=== PATIENT | female | born 1990 | race Caucasian/White ===

== ENCOUNTER → 2024-05-01 | Outpatient (CLI) | payer SELFPAY ==
[2024-05-01 16:58] LABS: Hematocrit 35.6 % (37-47); Hemoglobin 12.1 g/dL (12.0-15.0); Mean Corpuscular Hgb 29.2 pg (27.0-32.0); Mean Platelet Vol. 10.2 fl (6.2-12.0); Platelet Count 256 K/mm3 (150-450); RBC Distribution Width CV 11.9 % (11.6-14.6); RBC Distribution Width SD 37.7 fl (35.1-43.9); Red Blood Count 4.14 M/mm3 (4.2-5.4); White Blood Count 9.6 K/mm3 (4.4-11.0)
[2024-05-01 17:54] LABS: AST(SGOT) 16 U/L (<=31); Alanine Aminotransfer ALT/SGPT 13 U/L (<=34); Albumin, Serum 4.3 g/dL (3.5-5.0); Alkaline Phosphatase 48 U/L (35-104); Anion Gap 10 (5-15); BUN 13 mg/dL (4-19); Calcium,Total 9.2 mg/dL (7.6-11.0); Carbon Dioxide 25.5 mmol/L (21.0-32.0); Chloride 102 mmol/L (98-108); Cholesterol 185 mg/dL (<=200); EST Glomerular Filtration Rate 116 (>60); Globulin 2.2 g/dL (2.2-4.2); Glucose 96 mg/dL (70-99); High Density Lipoprotein 88 mg/dL; Low Density Lipoprotein Calc. 88 mg/dL; Protein, Total 6.5 g/dL (5.9-8.4); Sodium Level 138 mmol/L (133-145); Total Bilirubin 0.33 mg/dL (0.00-1.30); Triglycerides 47 mg/dL; Very Low Density Lipoprotein 9 mg/dL (5-40); cholesterol:hdl ratio screen 2.11
== END | disposition home or self-care (01) ==
LOC: LAB 16:05
PROVIDERS: PCP Nurse Practitioner Family; Referring Provider Nurse Practitioner Family; Visit Provider Nurse Practitioner Family
DX: Z00.00 Encounter for general adult medical examination without abnormal findings (principal); Z13.1 Encounter for screening for diabetes mellitus; Z13.6 Encounter for screening for cardiovascular disorders
CPT/HCPCS: 36415; 80053; 80061; 85027

== ENCOUNTER → 2024-05-08 | Outpatient (CLI) | payer SELFPAY ==
--- NOTE | 2024-05-08 09:03 | BI_ITS ---
EXAM: DIAG MAMM W/CAD, BILAT; BILAT BRST KAROLYN STAND ALONE; BREAST LIMITED UNILATERAL 05/08/2024 CLINICAL HISTORY: F, Age 33 y/o , L BREAST LUMP; L BREAT LUMP TECHNIQUE: Bilateral Diagnostic digital breast tomosynthesis with 2D and 3D images. Computer aided detection. Also, targeted left breast ultrasound was performed. COMPARISON: Baseline examination, no priors. FINDINGS: TISSUE DENSITY: The breast tissue is extremely dense which lowers the sensitivity of mammography. Bilateral Breast Mammographic Findings: There is a palpable skin marker in the central outer left breast. Underlying the skin marker no suspicious mammographic findings. Otherwise, there are no suspicious masses, grouped calcifications or architectural distortions in either breast. Ultrasound: Targeted left breast ultrasound was performed of the lateral left breast at the area of patient's palpable concern. There are no suspicious sonographic findings in the lateral left breast. There are a few mildly dilated ducts seen in the lateral left breast. BI/Bilat Brst Karolyn Stand Alone IMPRESSION: There are no suspicious mammographic or sonographic findings in the area of pat ient's palpable concern in the left breast. There is no evidence of malignancy in either breast. BIRADS 2 BENIGN FINDING. OVERALL FINAL ASSESSMENT: BIRADS 2 BENIGN FINDING. RECOMMENDATION: Recommendation: Normal interval follow-up. A letter with findings and recommendations will be mailed to the patient. Reading Location: [id number]
--- NOTE | 2024-05-08 09:03 | BI_ITS ---
EXAM: DIAG MAMM W/CAD, BILAT; BILAT BRST KAROLYN STAND ALONE; BREAST LIMITED UNILATERAL 05/08/2024 CLINICAL HISTORY: F, Age 33 y/o , L BREAST LUMP; L BREAT LUMP TECHNIQUE: Bilateral Diagnostic digital breast tomosynthesis with 2D and 3D images. Computer aided detection. Also, targeted left breast ultrasound was performed. COMPARISON: Baseline examination, no priors. FINDINGS: TISSUE DENSITY: The breast tissue is extremely dense which lowers the sensitivity of mammography. Bilateral Breast Mammographic Findings: There is a palpable skin marker in the central outer left breast. Underlying the skin marker no suspicious mammographic findings. Otherwise, there are no suspicious masses, grouped calcifications or architectural distortions in either breast. Ultrasound: Targeted left breast ultrasound was performed of the lateral left breast at the area of patient's palpable concern. There are no suspicious sonographic findings in the lateral left breast. There are a few mildly dilated ducts seen in the lateral left breast. BI/DIAG MAMM W/CAD, BILAT IMPRESSION: There are no suspicious mammographic or sonographic findings in the area of pat ient's palpable concern in the left breast. There is no evidence of malignancy in either breast. BIRADS 2 BENIGN FINDING. OVERALL FINAL ASSESSMENT: BIRADS 2 BENIGN FINDING. RECOMMENDATION: Recommendation: Normal interval follow-up. A letter with findings and recommendations will be mailed to the patient. Reading Location: [id number]
== END | disposition home or self-care (01) ==
PROVIDERS: PCP Nurse Practitioner Family; Referring Provider Nurse Practitioner Family; Visit Provider Nurse Practitioner Family
DX: R92.8 Other abnormal and inconclusive findings on diagnostic imaging of breast (principal)
CPT/HCPCS: 76642; 77062; 77066; G0279

== ENCOUNTER → 2024-09-21 | Outpatient (CLI) | payer SELFPAY ==
--- NOTE | 2024-09-21 08:05 | ECHOD_ITS ---
Reason For Study Reason For Study: CONGENITAL HEART DEFECT- REPAIR Procedure This was a 2D Doppler, Color Flow transthoracic echocardiogram. Myocardial strain analysis was performed in this exam to aid in the assessment of cardiac function. Exam performed in department. Left Ventricle Normal LV size. The left ventricular ejection fraction is 55 %. No regional wall motion abnormalities noted. Right Ventricle Normal RV size. Normal systolic function. Atria Normal left atrium. Normal right atrium. Mitral Valve Normal mitral valve. Mild (1+) eccentric mitral valve insufficiency. Tricuspid Valve Normal tricuspid valve. Mild tricuspid valve insufficiency. Pulmonary artery systolic pressure is 22 mmHg. Aortic Valve Trisinus/trileaflet aortic valve. Pulmonic Valve Normal pulmonic valve. Mild (1+) pulmonic valve insufficiency. Great Vessels Normal aortic root. Moderate pulmonary artery dilation. Inferior vena cava collapse with sniff. Pericardium/Pleural No pericardial effusion. MMode/2D Measurements & Calculations LVIDd: 4.4 cm IVSd: 0.74 cm LVOT diam: 1.9 cm LVIDs: 3.2 cm LVPWd: 0.71 cm LVOT area: 2.7 cm2 RVDd: 3.4 cm FS: 27.6 % asc Aorta Diam: 2.4 cm LAV(MOD-bp): 26.3 ml LVAd ap4: 22.8 cm2 LAV(MOD-bp) Indexed: 16.3 ml/m2 LVLd ap4: 6.7 cm LAV(MOD-sp2): 26.3 ml EDV(MOD-sp4): 66.1 ml LAV(MOD-sp4): 25.9 ml EDV(sp4-el): 66.3 ml LVAs ap4: 14.1 cm2 LVLs ap4: 5.8 cm ESV(MOD-sp4): 30.0 ml ESV(sp4-el): 29.0 ml EF(MOD-sp4): 54.6 % EF(sp4-el): 56.2 % LVAd ap2: 21.7 cm2 SV(MOD-sp4): 36.1 ml SV(MOD-sp2): 33.4 ml LVLd ap2: 7.1 cm SI(MOD-sp4): 22.5 ml/m2 SI(MOD-sp2): 20.8 ml/m2 EDV(MOD-sp2): 56.9 ml EDV(sp2-el): 56.0 ml LVAs ap2: 12.3 cm2 LVLs ap2: 5.6 cm ESV(MOD-sp2): 23.4 ml ESV(sp2-el): 22.9 ml EF(MOD-sp2): 58.8 % SV(sp4-el): 37.3 ml Ao sinus diam: 2.[address] Junction: 2.2 cm LA dimension(2D): 3.1 cm LA A4 area: 12.2 cm2 RA A4 area: 11.2 cm2 TAPSE: 1.9 cm Time Measurements MV dec time: 0.13 sec Doppler Measurements & Calculations MV E max levon: 104.1 cm/sec Lat Peak E' Levon: 17.0 cm/sec Med Peak E' Levon: 14.4 cm/sec MV A max levon: 39.2 cm/sec E/E' lat: 6.1 E/E' med: 7.2 MV E/A: 2.7 MV dec slope: 774.3 cm/sec2 Ao V2 max: 151.5 cm/sec LV V1 max: 125.5 cm/sec Ao max P.2 mmHg LV V1 max P.3 mmHg Ao V2 mean: 109.9 cm/sec LV V1 mean P.7 mmHg Ao mean P.2 mmHg LV V1 mean: 91.0 cm/sec Ao V2 VTI: 32.9 cm LV V1 VTI: 27.3 cm AV (velocity ratio): 0.83 RICARDO(I,D): 2.3 cm2 RICARDO(V,D): 2.3 cm2 SV(LVOT): 74.8 ml PA V2 max: 97.7 cm/sec TR max levon: 218.3 cm/sec TR max P.1 mmHg ECHO/Echo Complete Interpretation Summary Normal LV size. The left ventricular ejection fraction is 55 %. No regional wall motion abnormalities noted. The global longitudinal strain is normal. The global longitudinal strain = -20. 6 % (normal). Structurally normal valves. Ordering Physician: Emelina Dowling Referring Physician: Emelina Dowling M.D. Performed By: Birgit Wayne RDCS
== END | disposition home or self-care (01) ==
LOC: CVS 08:04
PROVIDERS: PCP Nurse Practitioner Family; Referring Provider Obstetrics & Gynecology Gynecology; Visit Provider Obstetrics & Gynecology Gynecology
DX: I07.1 Rheumatic tricuspid insufficiency (principal); N97.9 Female infertility, unspecified; Z87.74 Personal history of (corrected) congenital malformations of heart and circulatory system
CPT/HCPCS: 93306

== ENCOUNTER → 2024-11-05 | Outpatient (CLI) | payer SELFPAY ==
--- OUTSIDE RECORDS SUMMARY | 2024-11-05 16:26 | XMS RPT_ITS | CCD ---
Author Organization [facility] Inform ion Partnership [facility] Care Team Providers Care Recovery Unit Operator Name Role Phone Lab Institutional, [facility] Attending Unavailable Lab Institutional, [facility] Referring Unavailable Godfrey WE[employer] HAT BLOCKER-C, Carlton Peña Primary Care Provi delta Godfrey [employer] BLOCKER-C, Carlton Peña Attending Provider Comanche [employer]T HAT BLOCKER-C, Carlton Peña Referring Provider [employer]Y [employer] WORK[employer] - [employer]ESSING LABOURER, CARLTON Quevedo Primary Care Phys ician RONALD FONTENOT, EMELINA Attending Unavailable [employer] WORKER - [employer] PROCESSING LABOURER, CARLTON Quevedo Primary Care U re CARDENAS MD, EMELINA Attending Unavailable GODF[employer]Y [employer] B[employer]KE WORKER - [employer] PROCESSING LABOURER, CARLTON Quevedo Primary Care U navailable GODF[employer]Y [employer] BRAKE WORKER - [employer] PROCESSING LABOURER, CARLTON Quevedo Primary Care U re CARDENAS MD, EMELINA Attending Unavailable RONALD FONTENOT, EMELINA Attending Unavailable GOD[employer] BRAKE WORKER - [employer] PROCESSING LABOURER, CARLTON Quevedo Primary Care U navailable GODF[employer]Y [employer] BRAKE WORKER - [employer] PROCESSING LABOURER, CARLTON Quevedo Primary Care U re CARDENAS MD, EMELINA Attending Unavailable Godfrey WE[employer]T H[employer] BLOCKER-C, Carlton Peña Primary Care Provi delta Ronald FONTENOT, Dr. Tarango Attending Provider Ronald FONTENOT, Dr. Tarango Referring Provider [phone] Zaki FONTENOT, Dr. Costa Attending Provider Comanche [employer]T H[employer] BLOCKER, Carlton Peña Primary Care Unav ailable Godfrey [employer]T HAT BLOCKER, Carlton Peña Attending Unav ailable Godfrey WE[employer] F[employer]T HAT BLOCKER, Carlton Peña Referring Unav ailable Comanche WESTERN FELT HAT BLOCKER, Carlton Peña Attending Unav ailable Comanche WE[employer]T HAT BLOCKER, Carlton Peña Referring Unav ailable Comanche WESTERN FELT HAT BLOCKER, Carlton Peña Primary Care Unav ailable Comanche WESTERN FELT HAT BLOCKER, Carlton Peña Attending Unav ailable Comanche WESTERN FELT HAT BLOCKER, Carlton Peña Referring Unav ailable Comanche WEST[employer] FELT HAT BLOCKER, Carlton Peña Primary Care Unav ailable Ronald, Emelina Referring Unavailable Godfrey WEST[employer] FELT HAT BLOCKER, Carlton Peña Primary Care Unav ailable Ronald, Emelina Attending Unavailable Comanche WEST[employer] FELT HAT BLOCKER, Carlton Peña Attending Unav ailable Godfrey WEST[employer] FELT HAT BLOCKER, Carlton Peña Referring Unav ailable Comanche WESTERN FELT HAT BLOCKER, Carlton Peña Primary Care Unav ailable Zaki, Igor Attending Unavailable Comanche WE[employer] F[employer]T HAT BLOCKER, Carlton Peña Primary Care Unav ailable Linda, Eliana Attending Unavailable Godfrey WEST[employer] FELT HAT BLOCKER, Carlton Peña Primary Care Unav ailable Godfrey WEST[employer] FELT HAT BLOCKER, Carlton Peña Attending Unav ailable Godfrey WEST[employer] FELT HAT BLOCKER, Carlton Peña Referring Unav ailable Comanche WEST[employer] FELT HAT BLOCKER, Carlton Peña Primary Care Unav ailable Medications Current Medications Medication Drug Class(es) Dates Sig (Normalized) Sig (Original) acetaminophen 325 mg / HYDROcodone bitartrate 5 mg oral tablet (3 sources) Opioid Agonist Start: 11-08-2015 Hydrocodone-Acetam inophen 1 TABLET tablet Active 1 {tbl} PO EVERY 6 HOURS NEEDED as needed for Pain 20 0 November 08, 2015 12:00am Ascorbic Acid (2 sources) Vitamin C Start: 10-21-2023 Vitamin C qDay, 0 Refill(s) Start Date: 10/21/23 Status: Ordered Repeat number: 1 baclofen 10 mg oral tablet (3 sources) gamma-Aminobutyr ic Acid-ergic Agonist Start: 11-08-2015 take 1 tablet by mouth three times daily as needed for headache Baclofen 10 MG tablet Active 10 mg PO 3 TIMES DAILY NEEDED as needed for Headache November 08, 2015 12:00am letrozole 2.5 mg oral tablet (2 sources) Aromatase Inhibitor Start: 08-11-2024 End: 08-16-2024 letrozole 2.5 mg oral tablet Dose : 2.5 mg = 1 tab(s), Oral, Daily, # 5 tab(s), 0 Refill(s), Pharmacy: [facility], Infertility management, 157, cm, 07/29/24 10:52:00 EDT, Height, kg, 07/29/24 10:52:00 EDT, Dosing Weight Start Date: 08/11/24 Stop Date: 08/16/24 Status: Ordered Quantity: 5.0 Unit: tab(s) Repeat number: 1 Indications: Encounter for procreative management, unspecified; loratadine 10 mg oral tablet (8 sources) Start: 11-08-2015 take 1 tablet by mouth once daily Loratadine (Claritin) 10 MG tablet Active 10 mg PO DAILY November 08, 2015 12:00am Prenate Elite oral tablet (5 sources) Start: 07-01-2024 take 1 tablet by mouth once daily Prenate Elite oral tablet Dose = 1 tab(s), Oral, Daily, # 90 tab(s), 3 Refill(s), Pharmacy: [facility], Infertility management Screening for malignant neoplasm of cervix, 157, cm, 07/01/24 10:10:00 EDT, Height, kg, 07/01/24 10:10:00 EDT, Dosing Weight Start Date: 07/01/24 Status: Ordered Quantity: 90.0 Unit: tab(s) Repeat number: 4 Indications: Encounter for procreative management, unspecified; Encounter for screening for malignant neoplasm of cervix; Start: 07-01-2024 take 1 tablet by rochelle th once daily Prenate Elite oral tablet Dose = 1 tab(s), Oral, Daily, # 90 tab(s), 3 Refill(s), Pharmacy: [facility], Infertility management Screening for malignant neoplasm of cervix, 157, cm, 07/01/24 10:10:00 EDT, Height, kg, 07/01/24 10:10:00 EDT, Dosing Weight Start Date: 07/01/24 Status: Ordered Quantity: 90.0 Unit: tab(s) Repeat number: 4 Indications: Encounter for screening for malignant neoplasm of cervix; Encounter for procreative management, unspecified; Problems Active Problems Problem Classification Problem Date Documented Da te Episodic/Chronic Cardiac and circulatory congenital anomalies (5 sources) 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 congenital anomalies (3 sources) H/O: cardiac anomaly 07-29-2024 Episodic Contraceptive and procreative management (3 sources) Patient encounter status; Translations: [Encounter for procreative management, unspecified] Onset: 07-01-2024 Episodic Female infertility (1 source) Female infertility, unspecified; Translations: [Female infertility, unspecified] Onset: 09-25-2024 Chronic Other upper respiratory disease (5 sources) Seasonal allergy 10-21-2023 Chronic Other upper respiratory infections (5 sources) Acute bacterial sinusitis 04-21-2024 Episodic Unclassified (15 sources) Patient encounter status 10-21-2023 Past or Other Problems Problem Classification Problem Date Documented Da te Episodic/Chronic Nonmalignant breast conditions (6 sources) Breast lump; Translations: [Unspecified lump in unspecified breast] Onset: 05-05-2024 04-21-2024 Episodic Other screening for suspected conditions (not mental disorders or infectious disease) (5 sources) Encounter for screening for malignant neoplasm of cervix; Translations: [Other abnormal and inconclusive findings on diagnostic imaging of breast] Onset: 05-04-2024 Episodic Results Test Name Value Interpretation Reference Range Facility Echo Complete 09-21-2024 Echo Complete [facility] [address] [place] [address] Echo Complete 09/21/24 0808 MR#: [id number] Acct: [id number] Name: ASAEL LEÓN Rep #: [id number] : 1990 34 From: Igor Haines MD Attending Dr: Dr. Emelina Cardenas MD Status: REG [facility] Ordering Dr: Emelina Cardenas MD Date: 09/21/24 Location: [facility] Sex: F C Admitted: Reason For Study Reason For Study: CONGENITAL HEART DEFECT- REPAIR Procedure This was a 2D Doppler, Color Flow transthoracic echocardiogram. Myocardial strain analysis was performed in this exam to aid in the assessment of cardiac function. Exam performed in department. Left Ventricle Normal LV size. The left ventricular ejection fraction is 55 %. No regional wall motion abnormalities noted. Right Ventricle Normal RV size. Normal systolic function. Atria Normal left atrium. Normal right atrium. Mitral Valve Normal mitral valve. Mild (1+) eccentric mitral valve insufficiency. Tricuspid Valve Normal tricuspid valve. Mild tricuspid valve insufficiency. Pulmonary artery systolic pressure is 22 mmHg. Aortic Valve Trisinus/trileaflet aortic valve. Pulmonic Valve Normal pulmonic valve. Mild (1+) pulmonic valve insufficiency. Great Vessels Normal aortic root. Moderate pulmonary artery dilation. Inferior vena cava collapse with sniff. Pericardium/Pleural No pericardial effusion. MMode/2D Measurements Calculations LVIDd: 4.4 cm IVSd: 0.74 cm LVOT diam: 1.9 cm LVIDs: 3.2 cm LVPWd: 0.71 cm LVOT area: 2.7 cm2 RVDd: 3.4 cm FS: 27.6 % asc Aorta Diam: 2.4 cm LAV(MOD-bp): 26.3 ml LVAd ap4: 22.8 cm2 LAV(MOD-bp) Indexed: 16.3 ml/m2 LVLd ap4: 6.7 cm LAV(MOD-sp2): 26.3 ml EDV(MOD-sp4): 66.1 ml LAV(MOD-sp4): 25.9 ml EDV(sp4-el): 66.3 ml LVAs ap4: 14.1 cm2 LVLs ap4: 5.8 cm ESV(MOD-sp4): 30.0 ml ESV(sp4-el): 29.0 ml EF(MOD-sp4): 54.6 % EF(sp4-el): 56.2 % LVAd ap2: 21.7 cm2 SV(MOD-sp4): 36.1 ml SV(MOD-sp2): 33.4 ml LVLd ap2: 7.1 cm SI(MOD-sp4): 22.5 ml/m2 SI(MOD-sp2): 20.8 ml/m2 EDV(MOD-sp2): 56.9 ml EDV(sp2-el): 56.0 ml LVAs ap2: 12.3 cm2 LVLs ap2: 5.6 cm ESV(MOD-sp2): 23.4 ml ESV(sp2-el): 22.9 ml EF(MOD-sp2): 58.8 % SV(sp4-el): 37.3 ml Ao sinus diam: 2.[address] Junction: 2.2 cm LA dimension(2D): 3.1 cm LA A4 area: 12.2 cm2 RA A4 area: 11.2 cm2 TAPSE: 1.9 cm Time Measurements MV dec time: 0.13 sec Doppler Measurements Calculations MV E max levon: 104.1 cm/sec Lat Peak E' Levon: 17.0 cm/sec Med Peak E' Levon: 14.4 cm/sec MV A max levon: 39.2 cm/sec E/E' lat: 6.1 E/E' med: 7.2 MV E/A: 2.7 MV dec slope: 774.3 cm/sec2 Ao V2 max: 151.5 cm/sec LV V1 max: 125.5 cm/sec Ao max P.2 mmHg LV V1 max P.3 mmHg Ao V2 mean: 109.9 cm/sec LV V1 mean P.7 mmHg Ao mean P.2 mmHg LV V1 mean: 91.0 cm/sec Ao V2 VTI: 32.9 cm LV V1 VTI: 27.3 cm AV (velocity ratio): 0.83 RICARDO(I,D): 2.3 cm2 RICARDO(V,D): 2.3 cm2 SV(LVOT): 74.8 ml PA V2 max: 97.7 cm/sec TR max levon: 218.3 cm/sec TR max P.1 mmHg ECHO/Echo Complete Interpretation Summary Normal LV size. The left ventricular ejection fraction is 55 %. No regional wall motion abnormalities noted. The global longitudinal strain is normal. The global longitudinal strain = -20.6 % (normal). Structurally normal valves. Ordering Physician: Emelina Cardenas Referring Physician: Emelina Cardenas M.D. Performed By: Birgit Wayne, JUD 09/21/24 1348 Date Igor Haines MD CC: WESTERN FELT HAT BLOCKERJovanyC Carlton Donahue; Dr. Emelina Cardenas MD Date Dictated: 09/21/24807 Date Transcribed: 09/21/241347 Incident Handler: Signed Normal [facility] Echocardiogram study reportO rdered By: Igor Haines on 09-21-2024 Study report [facility] [address] [place] [place] [address] Echo Complete 09/21/24807 MR#: [id number] Acct: [id number] Name: ASAEL LEÓN Rep #:[id number] : 1990 34 From: Iogr Quevedo Attending Dr: Dr. Emelina Cardenas MD Status: REG I Ordering Dr: Emelina Cardenas MD Date: Location: [facility] Sex: F C Admitted: Reason For Study Reason For Study: CONGENITAL HEART DEFECT- REPAIR Procedure This was a 2D Doppler, Color Flow transthoracic echocardiogram. Myocardial strain analysis was performed in this exam to aid in the assessment of cardiac function. Exam performed in department. Left Ventricle Normal LV size. The left ventricular ejection fraction is 55 %. No regional wallmotion abnormalities noted. Right Ventricle Normal RV size. Normal systolic function. Atria Normal left atrium. Normal right atrium. Mitral Valve Normal mitral valve. Mild (1+) eccentric mitral valve insufficiency. Tricuspid Valve Normal tricuspid valve. Mild tricuspid valve insufficiency. Pulmonary artery systolic pressure is 22 mmHg. Aortic Valve Trisinus/trileaflet aortic valve. Pulmonic Valve Normal pulmonic valve. Mild (1+) pulmonic valve insufficiency. Great Vessels Normal aortic root. Moderate pulmonary artery dilation. Inferior vena cava collapse with sniff. Pericardium/Pleural No pericardial effusion. MMode/2D Measurements & Calculations LVIDd: 4.4 cm IVSd: 0.74 cm LVOT diam: 1.9 cm LVIDs: 3.2 cm LVPWd: 0.71 cm LVOT area: 2.7 cm2 RVDd: 3.4 cm FS: 27.6 % asc Aorta Diam: 2.4 cm LAV(MOD-bp): 26.3 ml LVAd ap4: 22.8 cm2 LAV(MOD-bp) Indexed: 16.3 ml/m2 LVLd ap4: 6.7 cm LAV(MOD-sp2): 26.3 ml EDV(MOD-sp4): 66.1 ml LAV(MOD-sp4): 25.9 ml EDV(sp4-el): 66.3 ml LVAs ap4: 14.1 cm2 LVLs ap4: 5.8 cm ESV(MOD-sp4): 30.0 ml ESV(sp4-el): 29.0 ml EF(MOD-sp4): 54.6 % EF(sp4-el): 56.2 % LVAd ap2: 21.7 cm2 SV(MOD-sp4): 36.1 ml SV(MOD-sp2): 33.4 ml LVLd ap2: 7.1 cm SI(MOD-sp4): 22.5 ml/m2 SI(MOD-sp2): 20.8 ml/m2 EDV(MOD-sp2): 56.9 ml EDV(sp2-el): 56.0 ml LVAs ap2: 12.3 cm2 LVLs ap2: 5.6 cm ESV(MOD-sp2): 23.4 ml ESV(sp2-el): 22.9 ml EF(MOD-sp2): 58.8 % SV(sp4-el): 37.3 ml Ao sinus diam: 2.[address] Junction: 2.2 cm LA dimension(2D): 3.1 cm LA A4 area: 12.2 cm2 RA A4 area: 11.2 cm2 TAPSE: 1.9 cm Time Measurements MV dec time: 0.13 sec Doppler Measurements & Calculations MV E max levon: 104.1 cm/sec Lat Peak E' Levon: 17.0 cm/sec Med Peak E' Levon: 14.4 cm/sec MV A max levon: 39.2 cm/sec E/E' lat: 6.1 E/E' med: 7.2 MV E/A: 2.7 MV dec slope: 774.3 cm/sec2 Ao V2 max: 151.5 cm/sec LV V1 max: 125.5 cm/sec Ao max P.2 mmHg LV V1 max P.3 mmHg Ao V2 mean: 109.9 cm/sec LV V1 mean P.7 mmHg Ao mean P.2 mmHg LV V1 mean: 91.0 cm/sec Ao V2 VTI: 32.9 cm LV V1 VTI: 27.3 cm AV (velocity ratio): 0.83 RICARDO(I,D): 2.3 cm2 RICARDO(V,D): 2.3 cm2 SV(LVOT): 74.8 ml PA V2 max: 97.7 cm/sec TR max levon: 218.3 cm/sec TR max P.1 mmHg ECHO/Echo Complete Interpretation Summary Normal LV size. The left ventricular ejection fraction is 55 %. No regional wall motion abnormalities noted. The global longitudinal strain is normal. The global longitudinal strain = -20.6% (normal). Structurally normal valves. Ordering Physician: Emelina Cardenas Referring Physician: Emelina Cardenas M.D. Performed By: Birgit Wayne, [facility] 09/21/24 1348 Date _ Igor Haines MD CC: CHICA Donahue; Dr. Emelina Cardenas MD ~ Date Dictated: 09/21/24807 Date Transcribed: 09/21/241347 Incident Handler: Signed [facility] Work Phone: LABORATORYOrdered By: Payton Haider on 08-13-2024 HCG ( test) Ql Negative (08/13/24 11:11 AM) Normal AO Manual Urine SS test (u) int Not detected Invalid Interpretation Code AO Manual Urine SS PREGUon 08-13-2024 HCG ( test) Ql (U) Negative Normal [facility] Comment on above: Performed By: #### A SUZIE PEREIRA #### [address] [address] test (u) int Not detected Invalid Interpretation Code [facility] Comment on above: Performed By: #### A SUZIE PEREIRA #### [address] [address] XR HYSTEROSALPINGOGRAPHYon 0 08-13-2024 XR HYSTEROSALPINGOGRAPHY ORIGINAL EXAMINATION: HYSTEROSALPINGOGRAM08/13/2024 12:15 pm COMPARISON: None available HISTORY: ORDERING SYSTEM PROVIDED HISTORY: Reason for Exam: INFERTILITY FINDINGS: A catheter was placed through the cervical os and contrast material was instilled into the uterus by the road crossing guard. Spot films were obtained by the radiologist. There is normal opacification of the uterine cavity and fallopian tubes. The fallopian tubes are patent with a small amount of intra-peritoneal spill of contrast bilaterally. Total fluoroscopy time: 23 seconds Total dose: 4.7 mGy Images: 17 IMPRESSION: Patent fallopian tubes. Interpreted by: Seun Forte DO Preliminary Report By: Seun Forte DO Electronically signed By Seun Forte DO Dictated Date: 08/13/2024 1:04:03 PM Prelim Date: 08/13/2024 1:12:18 PM Sign Date: 08/13/2024 1:12:18 PM Ordering Provider: EMELINA CARDENAS Interpreted by: Seun Forte DO Preliminary Report By: Seun Forte DO Electronically signed By Seun Forte DO Dictated Date: 08/13/2024 1:04:03 PM Prelim Date: 08/13/2024 1:12:18 PM Sign Date: 08/13/2024 1:12:18 PM Ordering Provider: EMELINA Cole [facility] LABORATORYOrdered By: SYSTEM SYSTEM on 07-31-2024 Progesterone [Mass/Vol] 29.3 ng/mL Invalid Interpretation Code ADM SS Comment on above: Interpretive Data: A dult Female Progesterone Reference Ranges: Follicular phase <0.21 - 1.40 ng/mL Luteal phase 3.34 - 25.56 ng/mL Mid-Luteal phase 4.44 - 28.03 ng/mL Postmenopausal <0.21 - 0.73 ng/ml Female: First trimester 11.22 - 90.00 ng/ml Second trimester 25.55 - 89.40 ng/ml Third trimester 48.40 - 422.50 ng/ml PROGon 07-31-2024 Progesterone Level 29.3 ng/mL [facility] Comment on above: Result Comment: Adul t Female Progesterone Reference Ranges: Follicular phase <0.21 - 1.40 ng/mL Luteal phase 3.34 - 25.56 ng/mL Mid-Luteal phase 4.44 - 28.03 ng/mL Postmenopausal <0.21 - 0.73 ng/ml Female: First trimester 11.22 - 90.00 ng/ml Second trimester 25.55 - 89.40 ng/ml Third trimester 48.40 - 422.50 ng/ml Performed By: #### A SUZIE PEREIRA #### [address] [address] [employer] Cytology Reporton 2024 [employer] Cytology Report . Pathology Reports Accession: Collected Date/Time: Received Date/Time: Pathologist: [id number] 07/01/2024 10:57 EDT 07/01/2024 18:00 EDT [employer] Cytology Report SPECIMEN: Specimen Description: Liquid Prep w/ HPV Specimen: Cervical/Endocervical Screening or Diagnostic: Screening RELEVANT HISTORY: LMP: 06/11/24 SPECIMEN ADEQUACY: SATISFACTORY FOR EVALUATION Endocervical/Transfor mational zone component present INTERPRETATION/RESULT S: NEGATIVE FOR INTRAEPITHELIAL LESION OR MALIGNANCY Inflammation present HIGH RISK HPV TESTING: Event Code Result HPV Interp See Interp HPVN f HPV Interp Comment: Clinical Interpretation: High Risk HPV Typing: NEGATIVE HPV types 16, 18, 31, 33, 35, 39, 45, 51, 52, 56, 58, 59, 66 and 68 DNA were undetectable or below the pre-set threshold. The xin High-Risk HPV DNA Test is not intended for use as a screening device for Pap normal women under age 30 and is not intended to substitute for regular Pap screening. The xin High-Risk HPV DNA Test is designed to augment existing methods for the detection of cervical disease and should be used in conjunction with clinical information derived from other diagnostic and screening tests, physical examinations and full medical history in accordance with appropriate patient management procedures. NOTE: A negative result does not preclude the presence of HPV infection because results depend on adequate specimen collection, absence of inhibitors and sufficient DNA to be detected. As of: 07/09/24 12:15 EDT Pathology Reports Accession: Collected Date/Time: Received Date/Time: Pathologist: [id number] 07/01/2024 10:57 EDT 07/01/2024 18:00 EDT COMMENT: This Pap Test was successfully processed and evaluated with the assistance of the [employer] ThinPrep Test Imaging System. Verified by Pathology report verified by [facility] Screened by: HEMANT Electronically signed by Juhi Abrams Sign-Out Date: 07/09/2024 12:16 Performing Lab: [facility], [address] [place] [address] Pathology Dept Disclaimer The Pap test is a screening test for cervical cancer. As evidenced by published data, it is subject to both inherent false negative and false positive results. Your patient's results should be interpreted in context with pertinent clinical history including gynecological examination. Normal [facility] HPVon 07-07-2024 HPV Interp See Interp HPVN Normal See Interp HPVN [facility] Comment on above: Order Comment: Order placed by AP_HPV_ORDER rule from [id number] Result Comment: Clinical Interpretation: High Risk HPV Typing: NEGATIVE HPV types 16, 18, 31, 33, 35, 39, 45, 51, 52, 56, 58, 59, 66 and 68 DNA were undetectable or below the pre-set threshold. The xin High-Risk HPV DNA Test is not intended for use as a screening device for Pap normal women under age 30 and is not intended to substitute for regular Pap screening. The xin High-Risk HPV DNA Test is designed to augment existing methods for the detection of cervical disease and should be used in conjunction with clinical information derived from other diagnostic and screening tests, physical examinations and full medical history in accordance with appropriate patient management procedures. NOTE: A negative result does not preclude the presence of HPV infection because results depend on adequate specimen collection, absence of inhibitors and sufficient DNA to be detected. Performed By: #### A SUZIE PEREIRA #### [address] [address] HPV Source Cervix Normal [facility] Comment on above: Order Comment: Order placed by AP_HPV_ORDER rule from [id number] Performed By: #### A SUZIE PEREIRA #### [address] [address] BVPCRon 07-03-2024 Bacterial Vaginosis Positive Abnormal Negative [facility] Comment on above: Result Comment: Mole cular methodology performed on the [employer] System. Performed By: #### C VTV, NGPCR1, BVPCR, CTPCR #### [address] [address] CVTVon 07-03-2024 Lisy glabrata Negative Normal Negative [facility] Comment on above: Result Comment: p - Assay processing error. Performed By: #### C VTV, NGPCR1, BVPCR, CTPCR #### [address] [address] Lisy Species Negative Normal Negative [facility] Comment on above: Result Comment: p - Assay processing error. Molecular methodology performed on the [employer]off System. Performed By: #### C VTV, NGPCR1, BVPCR, CTPCR #### [place] [address] Trichomonas vaginalis Negative Normal Negative [facility] Comment on above: Result Comment: p - Assay processing error. Performed By: #### C VTV, NGPCR1, BVPCR, CTPCR #### [place] [address] CTPCRon 07-02-[address] C. trachomatis Interp See CT Interp N Normal See CT Interp N [facility] Comment on above: Result Comment: Clinical Interpretation: C. trachomatis DNA not detected. Specimen is presumptive negative for C. trachomatis. A negative result does not preclude C. trachomatis infection because results depend on adequate specimen collection, absence of inhibitors, and sufficient DNA to be detected. Performed By: #### C VTV, NGPCR1, BVPCR, CTPCR #### [place] [address] C.trachomatis PCR Negative Normal Negative [facility] Comment on above: Result Comment: Mole cular (PCR) assay performed on the [employer] 4800 system. Performed By: #### C VTV, NGPCR1, BVPCR, CTPCR #### [place] [address] Chlam Source Cervix Normal [facility] Comment on above: Performed By: #### C VTV, NGPCR1, BVPCR, CTPCR #### [place] [address] [id number] 07-02-2024 GC PCR Source Cervix Normal [facility] Comment on above: Performed By: #### C VTV, NGPCR1, BVPCR, CTPCR #### [place] [address] N. gonorrhoeae (PCR) Negative Normal Negative [facility] Comment on above: Result Comment: Mole cular (PCR) assay performed on the [employer] 4800 System. Performed By: #### C VTV, NGPCR1, BVPCR, CTPCR #### [facility] [address] [place] [address] N. gonorrhoeae Interp See NG Interp N Normal See NG Interp N [facility] Comment on above: Result Comment: Clinical Interpretation: N. gonorrhoeae DNA not detected. Specimen is presumptive negative for N. gonorrhoeae. A negative result does not preclude Neisseria gonorrhoeae infection because results depend on adequate specimen collection, absence of inhibitors, and sufficient DNA to be detected. Performed By: #### C VTV, NGPCR1, BVPCR, CTPCR #### [facility] [address] [place] [address] RPRon 07-02-2024 Reagin Ab RPR Ql (S) Non-Reactive Normal Non-Orchard ctiv e [facility] Comment on above: Result Comment: The RPR test is a non-treponemal assay useful as an aid in the diagnosis of primary and secondary syphilis. It converts to positive generally within 2 weeks after the appearance of a lesion. This test is also useful for monitoring response to antibiotic therapy. A positive RPR screening test will be followed by the FTA ABS test. False positive RPR tests may occur in 1) patients with underlying autoimmune disorders, 2) elderly patients, 3) , and 4) other conditions with abnormal serum globulins. Performed By: #### A SUZIE PEREIRA #### [address] [address] RUBISon 07-02-[address] Positive Normal Positive [facility] Comment on above: Result Comment: This immune status assay detects IgM and/or IgG antibody to Rubella. Interpret results in conjunction with clinical history. POS: Antibody detected; exposure at undetermined recent or distant time. If clinically indicated, order Rubella IGM to rule out recent infection. NEG: No antibody detected. Performed By: #### A SUZIE PEREIRA #### [facility] [address], [place] [address] .Auto Diffon 07-01-2024 Basophil, Absolute 0.0 10 3/mcL Normal 0.0-0.3 [facility] Comment on above: Performed By: #### T SH, ADIFF, ANEU, FT3, FT4, CBC #### [place] [address] #### HBSAG, RPR, PROG, RUBIS #### [address] [address] Basophils/100 WBC (Bld) 0.5 % Normal 0.0-2.5 [facility] Comment on above: Performed By: #### T SH, ADIFF, ANEU, FT3, FT4, CBC #### [place] [address] #### HBSAG, RPR, PROG, RUBIS #### [address] [address] Eosinophil, Absolute 0.1 10 3/mcL Normal 0.0-0.7 [facility] Comment on above: Performed By: #### T SH, ADIFF, ANEU, FT3, FT4, CBC #### [place] [address] #### HBSAG, RPR, PROG, RUBIS #### [address] [address] Eosinophils/100 WBC (Bld) 1.4 % Normal 0.0-6.0 [facility] Comment on above: Performed By: #### T SH, ADIFF, ANEU, FT3, FT4, CBC #### [place] [address] #### HBSAG, RPR, PROG, RUBIS #### [address] [address] Lymphocyte, Absolute 1.7 10 3/mcL Normal 0.9-4.3 [facility] Comment on above: Performed By: #### T SH, ADIFF, ANEU, FT3, FT4, CBC #### [place] [address] #### HBSAG, RPR, PROG, RUBIS #### [address] [address] Lymphocytes/100 WBC (Bld) 28.9 % Normal 20.0-40.0 [facility] Comment on above: Performed By: #### T SH, ADIFF, ANEU, FT3, FT4, CBC #### [place] [address] #### HBSAG, RPR, PROG, RUBIS #### [address] [address] Monocyte, Absolute 0.4 10 3/mcL Normal 0.1-1.4 [facility] Comment on above: Performed By: #### T SH, ADIFF, ANEU, FT3, FT4, CBC #### [place] [address] #### HBSAG, RPR, PROG, RUBIS #### [address] [address] Monocytes/100 WBC (Bld) 7.0 % Normal 2.0-13.0 [facility] Comment on above: Performed By: #### T SH, ADIFF, ANEU, FT3, FT4, CBC #### [place] [address] #### HBSAG, RPR, PROG, RUBIS #### [address] [address] Neutrophils/100 WBC (Bld) 62.2 % Normal 50.0-75.0 [facility] Comment on above: Performed By: #### T SH, ADIFF, ANEU, FT3, FT4, CBC #### [place] [address] #### HBSAG, RPR, PROG, RUBIS #### [address] [address] .NEUABSon 07-01-2024 Neutrophil, Absolute 3.6 10 3/mcL Normal 2.3-8.1 [facility] Comment on above: Performed By: #### T SH, ADIFF, ANEU, FT3, FT4, CBC #### [place] [address] #### HBSAG, RPR, PROG, RUBIS #### [address] [address] ABO/Rh (Gel)on 07-01-2024 ABO/Rh Interp Positive Invalid Interpretation Code [facility] Comment on above: Performed By: #### A KELLI, ABSGEL #### [place] [address] ABS (Gel)on 07-01-2024 ABSC Interp (Gel) Negative Normal [facility] Comment on above: Performed By: #### A KELLI ABSGEL #### [place] [address] CBCon 07-01-2024 Erythrocyte distribution width (RBC) [Ratio] 12.7 % Normal 11.5-15.5 [facility] Comment on above: Performed By: #### T SH, ADIFF, ANEU, FT3, FT4, CBC #### [place] [address] #### HBSAG, RPR, PROG, RUBIS #### [place] [address] Hematocrit (Bld) [Volume fraction] 37.4 % Normal 34.0-46.0 [facility] Comment on above: Performed By: #### T SH, ADIFF, ANEU, FT3, FT4, CBC #### [place] [address] #### HBSAG, RPR, PROG, RUBIS #### [place] [address] Hgb 12.8 G/dL Normal 12.0-16.0 [facility] Comment on above: Performed By: #### T SH, ADIFF, ANEU, FT3, FT4, CBC #### [place] [address] #### HBSAG, RPR, PROG, RUBIS #### [address] [address] MCH (RBC) [Entitic mass] 29.1 pg Normal 27.0-33.0 [facility] Comment on above: Performed By: #### T SH, ADIFF, ANEU, FT3, FT4, CBC #### [place] [address] #### HBSAG, RPR, PROG, RUBIS #### [address] [address] MCHC 34.3 G/dL Normal 32.0-36.0 [facility] Comment on above: Performed By: #### T SH, ADIFF, ANEU, FT3, FT4, CBC #### [place] [address] #### HBSAG, RPR, PROG, RUBIS #### [place] [address] MCV (RBC) [Entitic vol] 85.0 fL Normal 80.0-99.0 [facility] Comment on above: Performed By: #### T SH, ADIFF, ANEU, FT3, FT4, CBC #### [place] [address] #### HBSAG, RPR, PROG, RUBIS #### [place] [address] Platelet 189 10 3/mcL Normal 150-450 [facility] Comment on above: Performed By: #### T SH, ADIFF, ANEU, FT3, FT4, CBC #### [place] [address] #### HBSAG, RPR, PROG, RUBIS #### [place] [address] Platelet mean volume (Bld) [Entitic vol] 8.6 fL Normal 6.6-10.5 [facility] Comment on above: Performed By: #### T SH, ADIFF, ANEU, FT3, FT4, CBC #### [place] [address] #### HBSAG, RPR, PROG, RUBIS #### [address] [address] RBC 4.40 10 6/mcL Normal 4.10-5.30 [facility] Comment on above: Performed By: #### T SH, ADIFF, ANEU, FT3, FT4, CBC #### [place] [address] #### HBSAG, RPR, PROG, RUBIS #### [address] [address] WBC 5.7 10 3/mcL Normal 4.5-10.8 [facility] Comment on above: Performed By: #### T SH, ADIFF, ANEU, FT3, FT4, CBC #### [place] [address] #### HBSAG, RPR, PROG, RUBIS #### [address] [address] FT3on 07-01-2024 Free T3 [Mass/Vol] 2.52 pg/mL Normal 2.30-4.00 [facility] Comment on above: Performed By: #### A SUZIE PEREIRA #### [place] [address] FT4on 07-01-2024 Free T4 [Mass/Vol] 0.91 ng/dL Normal 0.76-1.46 [facility] Comment on above: Performed By: #### A SUZIE PEREIRA #### [place] [address] HBSAGon 07-01-2024 Hep B Surf Ag Non-Reactive Normal Non-Reactiv e [facility] Comment on above: Performed By: #### A SUZIE PEREIRA #### [place] [address] LABORATORYOrdered By: Bishnu Rosenberg on 07-01-2024 Bacterial Vaginosis Positive 3 *ABN* (07/01/24 4:02 PM) Invalid Interpretation Code Negative AH Auto Viro/Sero SS Comment on above: Interpretive Data: Elieser zapata performed on the [employer] Eaton System. C. trachomatis DNA MELODY+probe Ql (Unsp spec) See CT Interp N 8 (07/01/24 4:02 PM) Normal See CT Interp N AH Auto Viro/Sero SS Comment on above: Result Comment: Clinical Interpretation: C. trachomatis DNA not detected. Specimen is presumptive negative for C. trachomatis. A negative result does not preclude C. trachomatis infection because results depend on adequate specimen collection, absence of inhibitors, and sufficient DNA to be detected. C. trachomatis DNA MELODY+probe Ql (Unsp spec) Negative 7 (07/01/24 4:02 PM) Normal Negative AH Auto Viro/Sero SS Comment on above: Interpretive Data: M olecular (PCR) assay performed on the [employer] 4800 system. Lisy glabrata PCR Negative 4 (07/01/24 4:02 PM) Normal Negative AH Auto Viro/Sero SS Comment on above: Result Comment: p - Assay processing error. Lisy Species Negative 1, 2 (07/01/24 4:02 PM) Normal Negative AH Auto Viro/Sero SS Comment on above: Result Comment: p - Assay processing error. Interpretive Data: M olecular methodology performed on the [employer] Eaton System. N. gonorrhoeae DNA MELODY+probe Ql (Unsp spec) Negative 6 (07/01/24 4:02 PM) Normal Negative AH Auto Viro/Sero SS Comment on above: Interpretive Data: M olecular (PCR) assay performed on the [employer] 4800 System. N. gonorrhoeae DNA MELODY+probe Ql (Unsp spec) See NG Interp N 9 (07/01/24 4:02 PM) Normal See NG Interp N AH Auto Viro/Sero SS Comment on above: Result Comment: Clinical Interpretation: N. gonorrhoeae DNA not detected. Specimen is presumptive negative for N. gonorrhoeae. A negative result does not preclude Neisseria gonorrhoeae infection because results depend on adequate specimen collection, absence of inhibitors, and sufficient DNA to be detected. Trichomonas vaginalis Negative 5 (07/01/24 4:02 PM) Normal Negative AH Auto Viro/Sero SS Comment on above: Result Comment: p - Assay processing error. LABORATORYOrdered By: Hood Weber on 07-01-2024 ABO and Rh group Nom (Bld) Blood group A Rh(D) positive Invalid Interpretation Code AO BB Auto SS Blood group antibody screen Ql Negative ABSC (07/01/24 11:14 AM) Normal AO BB Auto SS LABORATORYOrdered By: SYSTEM SYSTEM on 07-01-2024 Basophils (Bld) [#/Vol] 0.0 103/mcL Normal 0.0 - 0.3 10^3/mcL AO Workflow SS Basophils/100 WBC (Bld) 0.5 % Normal 0.0 - 2.5 % AO Workflow SS Eosinophil, Absolute 0.1 103/mcL Normal 0.0 - 0 .7 10^3/mcL AO Workflow SS Eosinophils/100 WBC (Bld) 1.4 % Normal 0.0 - 6.0 % AO Workflow SS Erythrocyte distribution width (RBC) [Ratio] 12.7 % Normal 11.5 - 15.5 % AO Workflow SS Free T3 [Mass/Vol] 2.52 pg/mL Normal 2.30 - 4. 00 pg/mL AO ADM SS Free T4 [Mass/Vol] 0.91 ng/dL Normal 0.76 - 1. 46 ng/dL AO ADM SS Hematocrit (Bld) [Volume fraction] 37.4 % Normal 34.0 - 46.0 % AO Workflow SS Hemoglobin (Bld) [Mass/Vol] 12.8 G/dL Normal 12.0 - 16.0 G/dL AO Workflow SS Lymphocytes (Bld) [#/Vol] 1.7 103/mcL Normal 0. 9 - 4.3 10^3/mcL AO Workflow SS Lymphocytes/100 WBC (Bld) 28.9 % Normal 20 .0 - 40.0 % AO Workflow SS MCH (RBC) [Entitic mass] 29.1 pg Normal 27. 0 - 33.0 pg AO Workflow SS MCHC 34.3 G/dL Normal 32.0 - 36.0 G/dL AO Workflow SS MCV (RBC) [Entitic vol] 85.0 fL Normal 80.0 - 99.0 fL AO Workflow SS Monocytes (Bld) [#/Vol] 0.4 103/mcL Normal 0.1 - 1.4 10^3/mcL AO Workflow SS Monocytes/100 WBC (Bld) 7.0 % Normal 2.0 - 13.0 % AO Workflow SS Neutrophils (Bld) [#/Vol] 3.6 103/mcL Normal 2. 3 - 8.1 10^3/mcL AO Workflow SS Neutrophils/100 WBC (Bld) 62.2 % Normal 50 .0 - 75.0 % AO Workflow SS Platelet mean volume (Bld) [Entitic vol] 8.6 fL Normal 6.6 - 10.5 fL AO Workflow SS Platelets (Bld) [#/Vol] 189 103/mcL Normal 150 - 450 10^3/mcL AO Workflow SS Progesterone [Mass/Vol] 9.0 ng/mL Invalid Interpretation Code ADM SS Comment on above: Interpretive Data: A dult Female Progesterone Reference Ranges: Follicular phase <0.21 - 1.40 ng/mL Luteal phase 3.34 - 25.56 ng/mL Mid-Luteal phase 4.44 - 28.03 ng/mL Postmenopausal <0.21 - 0.73 ng/ml Female: First trimester 11.22 - 90.00 ng/ml Second trimester 25.55 - 89.40 ng/ml Third trimester 48.40 - 422.50 ng/ml RBC (Bld) [#/Vol] 4.40 106/mcL Normal 4.10 - 5.3 0 10^6/mcL AO Workflow SS TSH Qn 1.94 m[IU]/L Normal 0.36 - 3.74 mcIU/mL AO ADM SS WBC (Bld) [#/Vol] 5.7 103/mcL Normal 4.5 - 10.8 10^3/mcL AO Workflow SS LABORATORYOrdered By: Jose Elias ramires Parviz on 07-01-2024 HBV surface Ag IA Ql Non-Reactive (07/01/24 11:13 AM) Normal Non-Reactiv e [facility] Laboratory - Specimen inform ationOrdered By: Bishnu Rosenberg on 07-01-2024 Specimen source Nom (Unsp spec) Cervix (07/01/24 4:02 PM) Normal Auto Viro/Sero SS PROGon 07-01-2024 Progesterone Level 9.0 ng/mL Normal [facility] Comment on above: Result Comment: Adul t Female Progesterone Reference Ranges: Follicular phase <0.21 - 1.40 ng/mL Luteal phase 3.34 - 25.56 ng/mL Mid-Luteal phase 4.44 - 28.03 ng/mL Postmenopausal <0.21 - 0.73 ng/ml Female: First trimester 11.22 - 90.00 ng/ml Second trimester 25.55 - 89.40 ng/ml Third trimester 48.40 - 422.50 ng/ml Performed By: #### A SUZIE PEREIRA #### [facility] [address], [place] [address] TSHon 07-01-2024 TSH Qn 1.94 m[IU]/L Normal 0.36-3.74 [facility] Comment on above: Performed By: #### A SUZIE PEREIRA #### [facility] [address], [place] [address] Bilat Brst Denzel Stand Aloneo n 05-08-2024 Bilat Brst Denzel Stand Alone [facility] [address] [place] [address] Bilat Brst Denzel Stand Alone MR#: [id number] Acct: [id number] Name: ASAEL LEÓN Rep #: [id number] : 1990 F 33 From: Dee Vázquez MD PCP: CHICA Linn Status: [facility] CLI Study: Bilat Brst Denzel Stand Alone Date of Exam: 04/12 10/05 Exam# [id number] Ordering Dr: Carlton Donahue NP [employer] [facility] EXAM: DIAG MAMM W/CAD, BILAT; BILAT BRST DENZEL STAND ALONE; BREAST LIMITED UNILATERAL 05/08/2024 CLINICAL HISTORY: F, Age 33 y/o , L BREAST LUMP; L BREAT LUMP TECHNIQUE: Bilateral Diagnostic digital breast tomosynthesis with 2D and 3D images. Computer aided detection. Also, targeted left breast ultrasound was performed. COMPARISON: Baseline examination, no priors. FINDINGS: TISSUE DENSITY: The breast tissue is extremely dense which lowers the sensitivity of mammography. Bilateral Breast Mammographic Findings: There is a palpable skin marker in the central outer left breast. Underlying the skin marker no suspicious mammographic findings. Otherwise, there are no suspicious masses, grouped calcifications or architectural distortions in either breast. Ultrasound: Targeted left breast ultrasound was performed of the lateral left breast at the area of patient's palpable concern. There are no suspicious sonographic findings in the lateral left breast. There are a few mildly dilated ducts seen in the lateral left breast. BI/Bilat Brst Denzel Stand Alone IMPRESSION: There are no suspicious mammographic or sonographic findings in the area of patient's palpable concern in the left breast. There is no evidence of malignancy in either breast. BIRADS 2 BENIGN FINDING. OVERALL FINAL ASSESSMENT: BIRADS 2 BENIGN FINDING. RECOMMENDATION: Recommendation: Normal interval follow-up. A letter with findings and recommendations will be mailed to the patient. Reading Location: [id number] CC: CHICA Donahue Incident Handler: Signed Normal [facility] Breast Limited Unilateralon 05-08-2024 Breast Limited Unilateral [facility] [address] [place] [id number] Breast Limited Unilateral MR#: [id number] Acct: [id number] Name: ASAEL LEÓN Rep #: [id number] : 1990 F 33 From: Dee Vázquez MD PCP: CHICA Linn Status: REG CLI Study: Breast Limited Unilateral Date of Exam: Exam# [id number] Ordering Dr: Carlton Donahue NP, NP-C EXAM: DIAG MAMM W/CAD, BILAT; BILAT BRST DENZEL STAND ALONE; BREAST LIMITED UNILATERAL 05/08/2024 CLINICAL HISTORY: F, Age 33 y/o , L BREAST LUMP; L BREAT LUMP TECHNIQUE: Bilateral Diagnostic digital breast tomosynthesis with 2D and 3D images. Computer aided detection. Also, targeted left breast ultrasound was performed. COMPARISON: Baseline examination, no priors. FINDINGS: TISSUE DENSITY: The breast tissue is extremely dense which lowers the sensitivity of mammography. Bilateral Breast Mammographic Findings: There is a palpable skin marker in the central outer left breast. Underlying the skin marker no suspicious mammographic findings. Otherwise, there are no suspicious masses, grouped calcifications or architectural distortions in either breast. Ultrasound: Targeted left breast ultrasound was performed of the lateral left breast at the area of patient's palpable concern. There are no suspicious sonographic findings in the lateral left breast. There are a few mildly dilated ducts seen in the lateral left breast. US/Breast Limited Unilateral IMPRESSION: There are no suspicious mammographic or sonographic findings in the area of patient's palpable concern in the left breast. There is no evidence of malignancy in either breast. BIRADS 2 BENIGN FINDING. OVERALL FINAL ASSESSMENT: BIRADS 2 BENIGN FINDING. RECOMMENDATION: Recommendation: Normal interval follow-up. A letter with findings and recommendations will be mailed to the patient. Reading Location: [id number] CC: [facility] [employer] BLOCKER[employer]inab Donahue Incident Handler: Signed Normal [facility] Breast imaging reportOrdered By: Dee Vázquez on 05-08-2024 Study report [facility] [address] [place] [address] DIAG MAMM W/CAD, BILAT MR#: [id number] Acct: [id number] Name: ASAEL LEÓN Rep #: [id number] : 1990 F 33 From: Gilma Vázquez MD PCP: CHICA Linn Status: REG CLI Study:DIAG MAMM W/CAD, BILAT Date of Exam: 05/08/24 Exam# [id number] Ordering Dr: Carlton Donauhe NP [employer] [facility] EXAM: DIAG MAMM W/CAD, BILAT; BILAT BRST DENZEL STAND ALONE; BREAST LIMITED UNILATERAL 05/08/2024 CLINICAL HISTORY: F, Age 33 y/o , L BREAST LUMP; L BREAT LUMP TECHNIQUE: Bilateral Diagnostic digital breast tomosynthesis with 2D and 3D images. Computer aided detection. Also, targeted left breast ultrasound was performed. COMPARISON: Baseline examination, no priors. FINDINGS: TISSUE DENSITY: The breast tissue is extremely dense which lowers the sensitivity of mammography. Bilateral Breast Mammographic Findings: There is a palpable skin marker in the central outer left breast. Underlying the skin marker no suspicious mammographic findings. Otherwise, there are no suspicious masses, grouped calcifications or architectural distortions in either breast. Ultrasound: Targeted left breast ultrasound was performed of the lateral left breast at the area of patient's palpable concern. There are no suspicious sonographic findings in the lateral left breast. There are a few mildly dilated ducts seen in the lateral left breast. BI/DIAG MAMM W/CAD, BILAT IMPRESSION: There are no suspicious mammographic or sonographic findings in the area of patient's palpable concern in the left breast. There is no evidence of malignancy in either breast. BIRADS 2 BENIGN FINDING. OVERALL FINAL ASSESSMENT: BIRADS 2 BENIGN FINDING. RECOMMENDATION: Recommendation: Normal interval follow-up. A letter with findings and recommendations will be mailed to the patient. Reading Location: [id number] CC: CHICA Donahue ~ Incident Handler: Signed [facility] Study report [facility] [address] [place] [address] Bilat Brst Denzel Stand Alone MR#: [id number] Acct: [id number] Name: ASAEL LEÓN Rep #: [id number] : 1990 F 33 From: Gilma Vázquez MD PCP: CHICA Linn Status: [facility] CLI Study:Bilat Brst Denzel Stand Alone Date of Exa m: 05/08/24 Exam# [id number] Ordering Dr: Carlton Donahue NP, NP-C EXAM: DIAG MAMM W/CAD, BILAT; BILAT BRST DENZEL STAND ALONE; BREAST LIMITED UNILATERAL 05/08/2024 CLINICAL HISTORY: F, Age 33 y/o , L BREAST LUMP; L BREAT LUMP TECHNIQUE: Bilateral Diagnostic digital breast tomosynthesis with 2D and 3D images. Computer aided detection. Also, targeted left breast ultrasound was performed. COMPARISON: Baseline examination, no priors. FINDINGS: TISSUE DENSITY: The breast tissue is extremely dense which lowers the sensitivity of mammography. Bilateral Breast Mammographic Findings: There is a palpable skin marker in the central outer left breast. Underlying the skin marker no suspicious mammographic findings. Otherwise, there are no suspicious masses, grouped calcifications or architectural distortions in either breast. Ultrasound: Targeted left breast ultrasound was performed of the lateral left breast at the area of patient's palpable concern. There are no suspicious sonographic findings in the lateral left breast. There are a few mildly dilated ducts seen in the lateral left breast. BI/Bilat Brst Denzel Stand Alone IMPRESSION: There are no suspicious mammographic or sonographic findings in the area of patient's palpable concern in the left breast. There is no evidence of malignancy in either breast. BIRADS 2 BENIGN FINDING. OVERALL FINAL ASSESSMENT: BIRADS 2 BENIGN FINDING. RECOMMENDATION: Recommendation: Normal interval follow-up. A letter with findings and recommendations will be mailed to the patient. Reading Location: [facility] CC: CHICA Donahue ~ Incident Handler: Signed [facility] DIAG MAMM W/CAD, BILATon DIAG MAMM W/CAD, BILAT [facility] [address] [place], [place] [id number] DIAG MAMM W/CAD, BILAT MR#: [id number] Acct: [id number] Name: ASAEL LEÓN Rep #: [id number] : 1990 F 33 From: Dee Vázquez MD PCP: CHICA Linn Status: REG CLI Study: DIAG MAMM W/CAD, BILAT Date of Exam: 05/08/24 Exam# [id number] Ordering Dr: Carlton Donahue NP, NP-C EXAM: DIAG MAMM W/CAD, BILAT; BILAT BRST DENZEL STAND ALONE; BREAST LIMITED UNILATERAL 05/08/2024 CLINICAL HISTORY: F, Age 33 y/o , L BREAST LUMP; L BREAT LUMP TECHNIQUE: Bilateral Diagnostic digital breast tomosynthesis with 2D and 3D images. Computer aided detection. Also, targeted left breast ultrasound was performed. COMPARISON: Baseline examination, no priors. FINDINGS: TISSUE DENSITY: The breast tissue is extremely dense which lowers the sensitivity of mammography. Bilateral Breast Mammographic Findings: There is a palpable skin marker in the central outer left breast. Underlying the skin marker no suspicious mammographic findings. Otherwise, there are no suspicious masses, grouped calcifications or architectural distortions in either breast. Ultrasound: Targeted left breast ultrasound was performed of the lateral left breast at the area of patient's palpable concern. There are no suspicious sonographic findings in the lateral left breast. There are a few mildly dilated ducts seen in the lateral left breast. BI/DIAG MAMM W/CAD, BILAT IMPRESSION: There are no suspicious mammographic or sonographic findings in the area of patient's palpable concern in the left breast. There is no evidence of malignancy in either breast. BIRADS 2 BENIGN FINDING. OVERALL FINAL ASSESSMENT: BIRADS 2 BENIGN FINDING. RECOMMENDATION: Recommendation: Normal interval follow-up. A letter with findings and recommendations will be mailed to the patient. Reading Location: [facility] CC: CHICA Donahue Incident Handler: Signed Normal [facility] Anion gap in Serum or Plasma Ordered By: Carlton Donahue on 05-01-2024 Anion gap [Moles/Vol] 10 mmol/L 5-15 [facility] BUN/creatinine ratioOrdered By: Carlton Donahue on 05-01-2024 Urea nitrogen/Creatinine [Mass ratio] 19.0 mg/mg 10-20 [facility] Bilirubin, totalOrdered By: Carlton Donahue on 05-01-2024 Bilirubin [Mass/Vol] 0.33 mg/dL 0.00-1.30 [facility] CBC-Complete Blood Cnt No Di ffon 05-01-2024 Erythrocyte distribution width (RBC) [Ratio] 11.9 % Normal 11.6-14.6 [facility] Comment on above: Performed By: #### L 100.0500, L500.4050, L500.4100 #### [facility] [address] [facility] [facility] [place], [address] Hematocrit (Bld) [Volume fraction] 35.6 % Low 37-47 [facility] Comment on above: Performed By: #### L 100.0500, L500.4050, L500.4100 #### [facility] [address] [place], [address] Hemoglobin (Bld) [Mass/Vol] 12.1 g/dL Normal 12.0-15.0 [facility] Comment on above: Performed By: #### L 100.0500, L500.4050, L500.4100 #### [facility] [address], [address] MCH (RBC) [Entitic mass] 29.2 pg Normal 27.0-32.0 [facility] Comment on above: Performed By: #### L 100.0500, L500.4050, L500.4100 #### [facility] [address] [place], [address] MCHC (RBC) [Mass/Vol] 34.0 g/dL Normal 32-36 [facility] Comment on above: Performed By: #### L 100.0500, L500.4050, L500.4100 #### [facility] [address] [place], [address] MCV (RBC) [Entitic vol] 86.0 fL Normal 81-99 [facility] Comment on above: Performed By: #### L 100.0500, L500.4050, L500.4100 #### [facility] [address] [place], [address] Platelet mean volume (Bld) [Entitic vol] 10.2 fL Normal 6.2-12.0 [facility] Comment on above: Performed By: #### L 100.0500, L500.4050, L500.4100 #### [facility] [address] [place], [address] Platelets (Bld) [#/Vol] 256 10*3/uL Normal 150-450 [facility] Comment on above: Performed By: #### L 100.0500, L500.4050, L500.4100 #### [facility] [address] [place], [address] RBC (Bld) [#/Vol] 4.14 10*6/uL Low 4.2-5.4 [facility] Comment on above: Performed By: #### L 100.0500, L500.4050, L500.4100 #### [facility] [address] [place], [address] RDW SD 37.7 fl Normal 35.1-43.9 [facility] Comment on above: Performed By: #### L 100.0500, L500.4050, L500.4100 #### [facility] [address] [place], [address] WBC (Bld) [#/Vol] 9.6 10*3/uL Normal 4.4-11.[address] [facility] Comment on above: Performed By: #### L 100.0500, L500.4050, L500.4100 #### [facility] [address] [place], [address] Calculated very low density lipoprotein (VLDL) cholesterol measurementOrdered By: Carlton Donahue on 05-01-2024 VLDL Cholesterol 9 mg/dL 5-40 [facility] Carbon dioxide, total [Moles /volume] in Central venous bloodOrdered By: Carlton Donahue on 05-01-2024 CO2 [Moles/Vol] 25.5 mmol/L 21.0-32.0 [facility] Chloride assayOrdered By: Yoav Donahue on 05-01-2024 Chloride [Moles/Vol] 102 mmol/L 98-108 [facility] Comprehensive Metabolic Prof ilon 05-01-2024 Albumin [Mass/Vol] 4.3 g/dL Normal 3.5-5.[address] [facility] Comment on above: Performed By: #### L 100.0500, L500.4050, L500.4100 #### [facility] [address] [place], [address] Albumin/Globulin [Mass ratio] 2.0 {ratio} Normal 0.9-2.4 [facility] Comment on above: Performed By: #### L 100.0500, L500.4050, L500.4100 #### [facility] [address] [place], [address] ALK PHOS 48 U/L Normal 35-104 [facility] Comment on above: Performed By: #### L 100.0500, L500.4050, L500.4100 #### [facility] [address] [place], [address] ALT [Catalytic activity/Vol] 13 U/L Normal <=34 [facility] Comment on above: Performed By: #### L 100.0500, L500.4050, L500.4100 #### [facility] [address] [place], [address] AST [Catalytic activity/Vol] 16 U/L Normal <=31 [facility] Comment on above: Performed By: #### L 100.0500, L500.4050, L500.4100 #### [facility] [address] [place], [address] Bilirubin [Mass/Vol] 0.33 mg/dL Normal 0.00-1.30 [facility] Comment on above: Performed By: #### L 100.0500, L500.4050, L500.4100 #### [facility] [address] [place], [address] BUN/CRE 19.0 RATIO Normal 10-20 [facility] Comment on above: Performed By: #### L 100.0500, L500.4050, L500.4100 #### [facility] [address] [place], [address] Calcium [Mass/Vol] 9.2 mg/dL Normal 7.6-11.[address] [facility] Comment on above: Performed By: #### L 100.0500, L500.4050, L500.4100 #### [facility] [address] [place], [address] Chloride [Moles/Vol] 102 mmol/L Normal 98-108 [facility] Comment on above: Performed By: #### L 100.0500, L500.4050, L500.4100 #### [facility] [address] [place], [address] CO2 [Moles/Vol] 25.5 mmol/L Normal 21.0-32.0 [facility] Comment on above: Performed By: #### L 100.0500, L500.4050, L500.4100 #### [facility] [address] [place], [address] Creatinine [Mass/Vol] 0.70 mg/dL Normal 0.70-1.20 [facility] Comment on above: Performed By: #### L 100.0500, L500.4050, L500.4100 #### [facility] [address] [place], [address] GAP 10 Normal 5-15 [facility] Comment on above: Performed By: #### L 100.0500, L500.4050, L500.4100 #### [facility] [address] [place], [address] GFR/1.73 sq M.predicted among non-blacks MDRD (S/P/Bld) [Vol rate/Area] 116 mL/min/{1.73_m2} Normal >60 [facility] Comment on above: Result Comment: mL/m in/1.73m2 CKD-EPI Creatinine Equation (2020) Performed By: #### L 100.0500, L500.4050, L500.4100 #### [facility] [address] [place], [address] Globulin (S) [Mass/Vol] 2.2 g/dL Normal 2.2-4.2 [facility] Comment on above: Performed By: #### L 100.0500, L500.4050, L500.4100 #### [facility] [address] [place], [address] Glucose [Mass/Vol] 96 mg/dL Normal 70-[address] [facility] Comment on above: Performed By: #### L 100.0500, L500.4050, L500.4100 #### [facility] [address] [place], [address] Potassium [Moles/Vol] 4.0 mmol/L Normal 3.3-5.1 [facility] Comment on above: Performed By: #### L 100.0500, L500.4050, L500.4100 #### [facility] [address] [place], [address] Sodium [Moles/Vol] 138 mmol/L Normal 133-[address] [facility] Comment on above: Performed By: #### L 100.0500, L500.4050, L500.4100 #### [facility] [address] [place], [address] T PROT 6.5 g/dL Normal 5.9-8.4 [facility] Comment on above: Performed By: #### L 100.0500, L500.4050, L500.4100 #### [facility] [address] [place], [address] Urea nitrogen [Mass/Vol] 13 mg/dL Normal 4-19 [facility] Comment on above: Performed By: #### L 100.0500, L500.4050, L500.4100 #### [facility] [address] [place], [address] Erythrocyte distribution wid th ratioOrdered By: Carlton Donahue on 05-01-2024 Erythrocyte distribution width (RBC) [Ratio] 11.9 % 11.6-14.6 [facility] Erythrocyte distribution wid th standard deviationOrdered By: Carlton Donahue on 05-01-2024 Erythrocyte distribution width (RBC) [Entitic vol] 37.7 fL 35.1-43.[address] [facility] GFR/1.73 sq M.predicted navneet g non-blacks MDRD (S/P/Bld) [Vol rate/Area]Ordered By: Carlton Donahue on 05-01-2024 Estimated GFR (MDRD) Non-Af Amer 116 >60 [facility] Comment on above: mL/min/1.73m2 CKD-EP I Creatinine Equation (2020) Hematocrit Auto (Bld) [Volum e fraction]Ordered By: Carlton Donahue on 05-01-2024 Hematocrit (Bld) [Volume fraction] 35.6 % Low 37-47 [facility] Hemoglobin measurementOrdere d By: Carlton Donahue on 05-01-2024 Hemoglobin (Bld) [Mass/Vol] 12.1 g/dL 12.0-15.0 [facility] LDL calc ser/plasOrdered By: Carlton Donahue on 05-01-2024 LDL Cholesterol, Calculated 88 mg/dL [facility] Comment on above: Givoyhnxwd=021-611 m g/dL & Higher Gwjm=944 mg/dL or greater Laboratory - Chemistry and C hemistry - challengeOrdered By: Carlton Donahue on 05-01-2024 AST [Catalytic activity/Vol] 16 U/L <32 [facility] Lipid Profileon 05-01-2024 CHOL:HDL 2.11 Normal [facility] Comment on above: Performed By: #### L 100.0500, L500.4050, L500.4100 #### [facility] [address] [place], [place], [address] Cholesterol [Mass/Vol] 185 mg/dL Normal <=200 [facility] Comment on above: Result Comment: Chol esterol level, Desirable <200 mg/dL Borderline high cholesterol 200-239 mg/dL High cholesterol >=240 mg/dL Recommendations of the NCEP Adult Treatment Panel for the following risk-cutoff thresholds for the [place] population. Performed By: #### L 100.0500, L500.4050, L500.4100 #### [facility] [address] [place], [address] Cholesterol in HDL [Mass/Vol] 88 mg/dL Normal [facility] Comment on above: Result Comment: [place]it[place] onal Cholesterol Education Program (NCEP) guidelines: <40 mg/dL: Low HDL-cholesterol (major risk factor for CHD) >= 60 mg/dL: High HDL-cholesterol (negative risk factor for CHD) HDL-cholesterol is affected by a number of factors, e.g. smoking, exercise, hormones, sex and age. Performed By: #### L 100.0500, L500.4050, L500.4100 #### [facility] [address] [place], [address] Cholesterol in LDL [Mass/Vol] 88 mg/dL Normal [facility] Comment on above: Result Comment: Bord iwdnif=557-017 mg/dL Higher Eyrw=530 mg/dL or greater Performed By: #### L 100.0500, L500.4050, L500.4100 #### [facility] [address] [place], [address] Cholesterol in VLDL [Mass/Vol] 9 mg/dL Normal 5-40 [facility] Comment on above: Performed By: #### L 100.0500, L500.4050, L500.4100 #### [facility] [address] [place], [address] Triglyceride [Mass/Vol] 47 mg/dL Normal [facility] Comment on above: Result Comment: The drugs N-Acetylcysteine and Metamizole may falsely depress this assay. Normal range: <150 mg/dL Borderline High: 150-199 mg/dL High: 200-499 mg/dL Very High: >500 mg/dL Performed By: #### L 100.0500, L500.4050, L500.4100 #### [facility] [address] [place], [address] MCV (mean corpuscular volume ) determinationOrdered By: Carlton Donahue on 05-01-2024 MCV (RBC) [Entitic vol] 86.0 fL 81-99 [facility] Mean corpuscular hemoglobin (MCH) determinationOrdered By: Carlton Donahue on 05-01-2024 MCH (RBC) [Entitic mass] 29.2 pg 27.0-32.0 [facility] Mean corpuscular hemoglobin concentration (MCHC) determinationOrdered By: Carlton Donahue on 05-01-2024 MCHC (RBC) [Mass/Vol] 34.0 g/dL 32-36 [facility] Mean platelet volume determi nationOrdered By: Carlton Donahue on 05-01-2024 Platelet mean volume (Bld) [Entitic vol] 10.2 fL 6.2-12.0 [facility] Platelet countOrdered By: Yoav Donahue on 05-01-2024 Platelets (Bld) [#/Vol] 256 10*3/uL 150-450 [facility] Potassium (Unsp spec) [Mass/ Vol]Ordered By: Carlton Donahue on 05-01-2024 Potassium [Moles/Vol] 4.0 mmol/L 3.3-5.1 [facility] RBC Auto (Bld) [#/Vol]Ordere d By: Carlton Donahue on 05-01-2024 RBC (Bld) [#/Vol] 4.14 10*6/uL Low 4.2-5.4 [facility] Screening total cholesterol/ high density lipoprotein (HDL) cholesterol ratioOrdered By: Carlton Donahue on 05-01-2024 Cholesterol.total/Choleste rol in HDL [Mass ratio] 2.11 {ratio} [facility] Serum creatinine measurement (mass/volume)Ordered By: Carlton Donahue on 05-01-2024 Creatinine [Mass/Vol] 0.70 mg/dL 0.70-1.20 [facility] Serum globulin measurementOr dered By: Carlton Donahue on 05-01-2024 Globulin (S) [Mass/Vol] 2.2 g/dL 2.2-4.2 [facility] Serum glucose measurement (m ass/volume)Ordered By: Carlton Donahue on 05-01-2024 Glucose [Mass/Vol] 96 mg/dL 70-[address] [facility] Serum or plasma alanine uribe otransferase (ALT) measurementOrdered By: Carlton Donahue on 05-01-2024 ALT [Catalytic activity/Vol] 13 U/L <35 [facility] Serum or plasma albumin charles urement (mass/volume)Ordered By: Carlton Donahue on 05-01-2024 Albumin [Mass/Vol] 4.3 g/dL 3.5-5.[address] [facility] Serum or plasma albumin/glob ulin mass ratioOrdered By: Carlton Donahue on 05-01-2024 Albumin/Globulin [Mass ratio] 2.0 {ratio} 0.9-2.4 [facility] Serum or plasma alkaline enrique sphatase measurementOrdered By: Carlton Donahue on 05-01-2024 ALP [Catalytic activity/Vol] 48 U/L 35-104 [facility] Serum or plasma calcium charles urement (mass/volume)Ordered By: Carlton Donahue on 05-01-2024 Calcium [Mass/Vol] 9.2 mg/dL 7.6-11.[address] [facility] Serum or plasma cholesterol in HDL measurement (mass/volume)Ordered By: Carlton Donahue on 05-01-2024 Cholesterol in HDL [Mass/Vol] 88 mg/dL >40 [facility] Comment on above: National Cholesterol Education Program (NCEP) guidelines:<40 mg/dL: Low HDL-cholesterol (major risk factor for CHD)>= 60 mg/dL: High HDL-cholesterol (negative risk factor for CHD)HDL-cholesterol is affected by a number of factors, e.g. smoking, exercise, hormones, sex and age. Serum or plasma cholesterol measurement (mass/volume)Ordered By: Carlton Donahue on 05-01-2024 Cholesterol [Mass/Vol] 185 mg/dL <201 [facility] Comment on above: Cholesterol level, D esirable <200 mg/dLBorderline high cholesterol 200-239 mg/dLHigh cholesterol >=240 mg/dLRecommendations of the NCEP Adult Treatment Panel for the following risk-cutoff thresholds for the [place] population. Serum or plasma urea nitroge n measurement (mass/volume)Ordered By: Carlton Donahue on 05-01-2024 Urea nitrogen [Mass/Vol] 13 mg/dL 4-19 [facility] Sodium levelOrdered By: Wilmer Donahue on 05-01-2024 Sodium [Moles/Vol] 138 mmol/L 133-[address] [facility] Total proteinOrdered By: Brad Donahue on 05-01-2024 Protein [Mass/Vol] 6.5 g/dL 5.9-8.[address] [facility] Triglycerides measurementOrd ered By: Carlton Donahue on 05-01-2024 Triglyceride [Mass/Vol] 47 mg/dL <199 [facility] Comment on above: The drugs N-Acetylcy steine and Metamizole may falsely depress this assay. Normal range: <150 mg/dLBorderline High: 150-199 mg/dLHigh: 200-499 mg/dLVery High: >500 mg/dL White blood cell (WBC) count Ordered By: Carlton Donahue on 05-01-2024 WBC (Bld) [#/Vol] 9.6 10*3/uL 4.4-11.[address] [facility] Non-ELYSIA Drug Screenon 08-30 Non-[facility]YS[facility] Drug Screen Collected Normal [facility] Comment on above: Order Comment: [employer] sent to [employer] via fedex Performed By: #### N NID #### [facility] CLIA # [id number] [address] [place] [address] CNOVon 01-28-2017 CNOV Office Visit ([facility]) ----ASAEL MCFADDEN ([id number]) 1990 FDate Time Provider Gawqouceng90/18/17 3:45 PM NATALI GARCIAS) [facility] During your visit today, we recorded the following information about you: Temperature Pulse Respiration Blood pressure 96.9 degrees 66/minute 14/minute 112/64 Weight Last Period 65.8 kg 01/21/17Natali Garcias CNP 01/28/2017 6:57 PM SignedHPI Patient is a reliable 26 year old female here today for a 3 week history ofnasal congestion, cough and sore throat. Patient states cough is worse in themorning and at night. States throat pain is worse in the morning and at night.Denies know fever. Has tried OTC medications with little relief. Nothing makesit better. Feels like it is getting worse. No other concerns at this time.Review of SystemsConstitutional : Positive for chills and malaise/fatigue. Negative for fever.HENT: Positive for congestion, ear pain and sore throat.Respiratory: Positive for cough. Negative for sputum production, shortness ofbreath and wheezing.Cardiovascul ar: Negative.Gastrointest inal: Negative for nausea and vomiting.Musculoskele brandon: Negative for myalgias.Neurological : Positive for headaches (sinus pressure).Endo/Heme/A llergies: Negative for environmental allergies.All other systems reviewed and are negative.No past medical history on file.No past surgical history on file.ALLERGIES Review of patient's allergies indicates no known allergies.MEDICATIONS No prescriptions on file.No family history on file.Social HistorySubstance Use Topics- Smoking status: Never Smoker- Smokeless tobacco: Never Used- Alcohol use Not on fileBP 112/64 Pulse 66 Temp 36.1 ?C (96.9 ?F) (Tympanic) Resp 14 Wt 65.8 kg(145 lb) LMP 01/21/2017 SpO2 98%Physical ExamConstitutional: She is oriented to person, place, and time and well-developed,well-n ourished, and in no distress. Vital signs are normal.Mildly ill.HENT:Head: Normocephalic and atraumatic.Right Ear: Tympanic membrane, external ear and ear canal normal.Left Ear: Tympanic membrane, external ear and ear canal normal.Nose: Mucosal edema and rhinorrhea present. Right sinus exhibits no maxillarysinus tenderness and no frontal sinus tenderness. Left sinus exhibits nomaxillary sinus tenderness and no frontal sinus tenderness.Mouth/Thro at: Uvula is midline, oropharynx is clear and moist and mucousmembranes are normal. No oropharyngeal exudate, posterior oropharyngeal edemaor posterior oropharyngeal erythema.Neck: Neck supple.Cardiovascular : Normal rate, regular rhythm and normal heart sounds.Pulmonary/Ches t: Effort normal and breath sounds normal. She has no wheezes.She has no rales.Bilateral wheezes noted through out. Good air exchange noted at the bases. [id number] % on room airLymphadenopathy: Head (right side): No submental, no submandibular and no tonsillaradenopathy present. Head (left side): No submental, no submandibular and no tonsillaradenopathy present. She has no cervical adenopathy.Submandibu lar fullness.Neurological : She is alert and oriented to person, place, and time.Skin: Skin is warm and dry.Nursing note and vitals reviewed.ASSESSMENT/P BUDDY:1. Sinobronchitis - ICD9: 473.9, 490, ICD10: J32.9, J40- Will begin treatment with as per antibiotic as written, see orders- Steroid burst (see orders)- Inhaler (see orders)- Supportive care with plenty of fluids, rest, and analgesia prn.- Follow up in 3-5 days if symptoms persist or worsen.- AMOXICILLIN 875 MG-POTASSIUM CLAVULANATE 125 MG TABLET- PREDNISONE 20 MG TABLET- ALBUTEROL SULFATE HFA 90 MCG/ACTUATION AEROSOL INHALERPrescription instructions reviewed with patient as applicable. Patient advisedif symptoms do not improve or if symptoms worsen sooner, to contact theirprimary care physician. Potential red flag symptoms discussed with thepatient. Reviewed appropriate action plan to take if red flag symptoms occur.Patient agreeable to treatment plan.Natali Garcias CNPReferring Provider: SELF [[id number]]Allergies As of Date: 01/28/2017(No Known Allergies)Date Reviewed: 01/28/2017Reviewed by: Natali Garcias - Fully AssessedReason for Visit: Sinus Problem [99] Cmt: drainage, wheezing, cough, chest congestion x 3 weeksPrimary Visit Diagnosis:Sinobronchi tis [J32.9, J40]Order(s):amoxicil suzi-clavulanic acid (AUGMENTIN) 875-125 mg per tabletTake 1 tablet by mouth twice daily for 10 days.Disp: 20 tabletRfl: 0 predniSONE (DELTASONE) 20 mg tabletTake 1 tablet by mouth twice daily for 4 days.Disp: 8 tabletRfl: 0 albuterol HFA (PROAIR HFA) 90 mcg/actuation inhalerInhale 2 Puffs as instructed every 4 hours as needed.Disp: 1 InhalerRfl: 0Prescriptions as of 01/28/2017 Sig: AMOXICILLIN 875 MG-POTASSIUM * Take 1 tablet by mouth twice * PREDNISONE 20 MG TABLET Take 1 tablet by mouth twice * ALBUTEROL SULFATE HFA 90 MCG/* Inhale 2 Puffs as instructed *Problem List As Of Date: 01/28/2017(None)Presc riptions ordered this encounter Disp Refills Start End AMOXICILLIN 875 MG-POTASSIUM CLAVULA* 20 t* 0 01/28/2017 02/07/2017 Route: ORAL Sig: Take 1 tablet by mouth twice daily for 10 days. PREDNISONE 20 MG TABLET 8 ta* 0 01/28/2017 02/01/2017 Route: ORAL Sig: Take 1 tablet by mouth twice daily for 4 days. ALBUTEROL SULFATE HFA 90 MCG/ACTUATI* 1 In* 0 01/28/2017 Route: INHALATION Sig: Inhale 2 Puffs as instructed every 4 hours as needed. Status:Closed by NATALI GARCIAS CNP on 01/28/17 [facility] PROGRESSon 01-28-2017 PROGRESS HNO ID: [id number]: Natali (Jacquelyn) Linseyervice: (none)Author Type: Nurse PractitionerType: Progress NotesFiled: 01/28/2017 6:57 PMNote Text:HPI Patient is a reliable 26 year old female here today for a 3 weekhistory of nasal congestion, cough and sore throat. Patient states coughis worse in the morning and at night. States throat pain is worse in themorning and at night. Denies know fever. Has tried OTC medications withlittle relief. Nothing makes it better. Feels like it is getting worse. Noother concerns at this time.Review of SystemsConstitutional : Positive for chills and malaise/fatigue. Negative forfever.HENT: Positive for congestion, ear pain and sore throat.Respiratory: Positive for cough. Negative for sputum production, shortnessof breath and wheezing.Cardiovascul ar: Negative.Gastrointest inal: Negative for nausea and vomiting.Musculoskele brandon: Negative for myalgias.Neurological : Positive for headaches (sinus pressure).Endo/Heme/A llergies: Negative for environmental allergies.All other systems reviewed and are negative.No past medical history on file.No past surgical history on file.ALLERGIES Review of patient's allergies indicates no known allergies.MEDICATIONS No prescriptions on file.No family history on file.Social HistorySubstance Use Topics- Smoking status: Never Smoker- Smokeless tobacco: Never Used- Alcohol use Not on fileBP 112/64 Pulse 66 Temp 36.1 ?C (96.9 ?F) (Tympanic) Resp 14 Wt65.8 kg (145 lb) LMP 01/21/2017 SpO2 98%Physical ExamConstitutional: She is oriented to person, place, and time andwell-developed, well-nourished, and in no distress. Vital signs arenormal.Mildly ill.HENT:Head: Normocephalic and atraumatic.Right Ear: Tympanic membrane, external ear and ear canal normal.Left Ear: Tympanic membrane, external ear and ear canal normal.Nose: Mucosal edema and rhinorrhea present. Right sinus exhibits nomaxillary sinus tenderness and no frontal sinus tenderness. Left sinusexhibits no maxillary sinus tenderness and no frontal sinus tenderness.Mouth/Thro at: Uvula is midline, oropharynx is clear and moist and mucousmembranes are normal. No oropharyngeal exudate, posterior oropharyngealedema or posterior oropharyngeal erythema.Neck: Neck supple.Cardiovascular : Normal rate, regular rhythm and normal heart sounds.Pulmonary/Ches t: Effort normal and breath sounds normal. She has nowheezes. She has no rales.Bilateral wheezes noted through out. Good air exchange noted at the bases.SpO2 98 % on room airLymphadenopathy: Head (right side): No submental, no submandibular and no tonsillaradenopathy present. Head (left side): No submental, no submandibular and no tonsillaradenopathy present. She has no cervical adenopathy.Submandibu lar fullness.Neurological : She is alert and oriented to person, place, and time.Skin: Skin is warm and dry.Nursing note and vitals reviewed.ASSESSMENT/P BUDDY:1. Sinobronchitis - ICD9: 473.9, 490, ICD10: J32.9, J40- Will begin treatment with as per antibiotic as written, see orders- Steroid burst (see orders)- Inhaler (see orders)- Supportive care with plenty of fluids, rest, and analgesia prn.- Follow up in 3-5 days if symptoms persist or worsen.- AMOXICILLIN 875 MG-POTASSIUM CLAVULANATE 125 MG TABLET- PREDNISONE 20 MG TABLET- ALBUTEROL SULFATE HFA 90 MCG/ACTUATION AEROSOL INHALERPrescription instructions reviewed with patient as applicable. Patientadvised if symptoms do not improve or if symptoms worsen sooner, tocontact their primary care physician. Potential red flag symptomsdiscussed with the patient. Reviewed appropriate action plan to take ifred flag symptoms occur. Patient agreeable to treatment plan.Natali Garcias CNP [facility] Encounters Encounter Date Encounter Type Care Provider Facility Start: 10-30-2024 ambulatory Eliana Mckeon Facility :[facility] Start: 09-21-2024 Non-patient / Non-visit Dr. Igor Haines MD -[facility] Start: 09-21-2024 End: 09-21-2024 ambulatory Carlton Donahue [employer] Work Phone: -[facility] Start: 09-21-2024 End: 09-21-[address] Emelina Cardenas MD -[facility] Work Phone: Start: 09-21-2024 End: 09-21-2024 ambulatory Emelina Cardenas Facility:[facility] Start: 08-13-2024 End: 08-13-2024 ambulatory CARLTON DONAHUE [employer] Facility:[facility] Start: 08-13-2024 End: 08-13-2024 Patient encounter procedure EMELINA CARDENAS MD [facility] Start: 07-31-2024 End: 07-31-2024 ambulatory EMELINA CARDENAS MD Facility:[facility] Start: 07-31-2024 End: 07-31-2024 Patient encounter procedure EMELINA CARDENAS MD [facility] Start: 07-01-2024 End: 07-05-2024 ambulatory EMELINA CARDENAS MD Facility:[facility] Start: 07-01-2024 End: 07-05-2024 Outreach Lab EMELINA CARDENAS MD [facility] Start: 07-01-2024 End: 07-01-2024 ambulatory EMELINA CARDENAS MD Facility:[facility] Start: 07-01-2024 End: 07-01-2024 Patient encounter procedure EMELINA CARDENAS MD [facility] Start: 05-08-2024 Encounter for genera l adult medical examination without abnormal findings Carlton Donahue [employer] [facility] Start: 05-08-2024 End: 05-08-2024 ambulatory Carlton Donahue [employer] Work Phone: [facility] Work Phone: Start: 05-08-2024 End: 05-08-2024 Patient encounter procedure Carlton Donahue [employer] -Outpatient Breast Imaging Work Phone: Start: 05-08-2024 End: 05-08-2024 ambulatory Carlton Donahue [employer] Facility:[facility] Start: 05-06-2024 ambulatory Carlton Donahue [employer] Facility:[facility] Start: 05-04-2024 Encounter for genera l adult medical examination without abnormal findings Carlton Donahue [employer] [facility] Start: 05-04-2024 ambulatory Carlton Donahue [employer] Facility:[facility] Start: 05-01-2024 End: 05-01-2024 ambulatory Carlton Donahue [employer] Work Phone: [facility] Work Phone: Start: 05-01-2024 End: 05-01-2024 Patient encounter procedure Carlton Donahue [employer] -Laboratory Work Phone: Start: 05-01-2024 End: 05-01-2024 ambulatory Carlton Donahue [employer] Facility:[facility] Start: 08-30-2021 ambulatory [facility] Start: 01-28-2017 End: 01-28-2017 Ambulatory [facility] Procedures Date Procedure Procedure Detail Performing Clinician Start: 05-08-2024 Bilateral mammography Celso rachel COTO Work Phone: Start: 05-08-2024 Ultrasonography of breast Carlton COTO Work Phone: Start: 02-12-1992 Surgical procedure AMEL GEE CARDENAS MD Comment on above: Heart surgery 3 holes filled in Payers Date Payer Category Payer Unknown [id number] 2024 Self-pay [id number] 2024 Unknown 0 [id number] 1989 Unknown [id number] 2.16. [id number] 1989 Unknown [id number] 2.16. [id number] 1989 Unknown [id number] 2.16. [id number] 1989 Unknown [id number] 2.16.8 [id number] 1989 Unknown [id number] 2.16.8 [id number] Unknown [id number] 2.16.8 [id number] Unknown [id number] 2.16.8 [id number] Unknown [id number] 2.16.8 [id number] Unknown [id number] 2.16.8 [id number] Unknown [id number] 2.16.8 [id number] Unknown [id number] 2.16.8 [id number] Social History Date Type Detail Facility Start: 11-08-2015 End: 04-21-2024 Tobacco smoking status NHIS Never smoked tobacco (finding) [facility] Start: 05-08-2024 End: 05-12-2024 Sex Female (finding) [facility] Start: 1990 Sex Assigned At Female W [facility] Sexual Orientation [facility] Clinical Note 08-13-2024 Note Date & Type Note Facility 08-13-2024 Note Exam Date Time Procedure Performing Provider Status 08/13/24 12:14 PM XR Hysterosalpingography LAKSHMI FORTE DO; Auth (Verified) [id number] ORIGINAL EXAMINATION: HYSTEROSALPINGOGRAM08/13/2024 12:15 pm COMPARISON: None available HISTORY: ORDERING SYSTEM PROVIDED HISTORY: Reason for Exam: INFERTILITY FINDINGS: A catheter was placed through the cervical os and contrast material was instilled into the uterus by the road crossing guard. Spot films were obtained by the radiologist. There is normal opacification of the uterine cavity and fallopian tubes. The fallopian tubes are patent with a small amount of intra-peritoneal spill of contrast bilaterally. Total fluoroscopy time: 23 seconds Total dose: 4.7 mGy Images: 17 IMPRESSION: Patent fallopian tubes. Interpreted by: Seun Forte DO Preliminary Report By: Seun Forte DO Electronically signed By Seun Forte DO Dictated Date: 08/13/2024 1:04:03 PM Prelim Date: 08/13/2024 1:12:18 PM Sign Date: 08/13/2024 1:12:18 PM Ordering Provider: EMELINA CARDENAS Interpreted by: Seun Forte DO Preliminary Report By: Seun Forte DO Electronically signed By Seun Forte DO Dictated Date: 08/13/2024 1:04:03 PM Prelim Date: 08/13/2024 1:12:18 PM Sign Date: 08/13/2024 1:12:18 PM Ordering Provider: EMELINA CARDENAS [facility] Radiology Diagnostic study note 05-08-2024 Note Date & Type Note Facility 05-08-2024 Radiology Diagnostic study note [facility] Imaging Services [address] [place], [place] [address] Breast Limited Unilateral MR#: [id number] Acct: [id number] Name: ASAEL LEÓN Rep #: [id number] 5 : 1990 F 33 From: Gilma Vázquez MD PCP: AVINASH LinnC Status: REG CLI Study:Breast Limited Unilateral Date of Exam: 05/08/24 Exam# [id number] Ordering Dr: Carlton Donahue NP [employer] EXAM: DIAG MAMM W/CAD, BILAT; BILAT BRST DENZEL STAND ALONE; BREAST LIMITED UNILATERAL 05/08/2024 CLINICAL HISTORY: F, Age 33 y/o , L BREAST LUMP; L BREAT LUMP TECHNIQUE: Bilateral Diagnostic digital breast tomosynthesis with 2D and 3D images. Computer aided detection. Also, targeted left breast ultrasound was performed. COMPARISON: Baseline examination, no priors. FINDINGS: TISSUE DENSITY: The breast tissue is extremely dense which lowers the sensitivity of mammography. Bilateral Breast Mammographic Findings: There is a palpable skin marker in the central outer left breast. Underlying the skin marker no suspicious mammographic findings. Otherwise, there are no suspicious masses, grouped calcifications or architectural distortions in either breast. Ultrasound: Targeted left breast ultrasound was performed of the lateral left breast at the area of patient's palpable concern. There are no suspicious sonographic findings in the lateral left breast. There are a few mildly dilated ducts seen in the lateral left breast. US/Breast Limited Unilateral IMPRESSION: There are no suspicious mammographic or sonographic findings in the area of patient's palpable concern in the left breast. There is no evidence of malignancy in either breast. BIRADS 2 BENIGN FINDING. OVERALL FINAL ASSESSMENT: BIRADS 2 BENIGN FINDING. RECOMMENDATION: Recommendation: Normal interval follow-up. A letter with findings and recommendations will be mailed to the patient. Reading Location: [facility] CC: [employer] Carlton Donahue ~ Incident Handler: Signed [facility] Evaluation + Plan note 10-21-2023 Laboratory Note Date & Type Note Facility 10-21-2023 Evaluation + Plan note Future Scheduled TestsComplete Blood Count 10/21/23Lipid Profile 10/21/23Complete Metabolic Panel 10/21/23 [facility] Evaluation + Plan note Laboratory Note Date & Type Note Facility Evaluation + Plan note Future Appointments Appointment Date:07/29/2024 10:45:00 AM Scheduled Provider:EMELINA CARDENAS MD Location:[facility] Appointment Type: OV Diagnostic Tests PendingRapid Plasma Reagin Test 07/01/24Rubella Antibody 07/01/24 Future Scheduled TestsComplete Blood Count 10/21/23Lipid Profile 10/21/23Complete Metabolic Panel 10/21/23 [facility] Evaluation + Plan note Laboratory Note Date & Type Note Facility Evaluation + Plan note Future Appointments Appointment Date:07/29/2024 10:45:00 AM Scheduled Provider:EMELINA CARDENAS MD Location:[facility] Appointment Type: OV Diagnostic Tests PendingHPV Screen, DNA Probe 07/01/24 Future Scheduled TestsComplete Blood Count 10/21/23Lipid Profile 10/21/23Complete Metabolic Panel 10/21/23 [facility] Evaluation note Note Date & Type Note Facility Evaluation note No assessment information availa [facility] Work Phone: Hospital course Narrative Note Date & Type Note Facility Hospital course Narrative No data available for this section [facility] Hospital Discharge instructions Note Date & Type Note Facility Hospital Discharge instructions No data available for this section [facility] Progress note Note Date & Type Note Facility Progress note No data available for this section [facility] Reason for referral (narrative) Note Date & Type Note Facility Reason for referral (narrative) No reason for referral information available [facility] Work Phone: Summary Purpose Family History No Family History Records FoundNo Family History Records Found No data available for this section No data available for this section No data available for this section No data available for this section No data available for this section No Family History Records FoundNo Family History Records Found Advance Directives No Advanced Directives Records FoundNo Advanced Directives Records FoundNo Advanced Directives Records FoundNo Advanced Directives Records Found Chief Complaint and Reason for Visit Chief Complaint Admit Date MULTIPLE LUMPS May 08, 2024 8:5 8am Chief Complaint Admit Date Personal history of (corrected) congenit al malform September 21, 2024 8:03am Additional Source Comments INFORMATION SOURCE (unrecogn ized section and content) DATE CREATED AUTHOR 08/06/2017 [facility] DATE CREATED AUTHOR AUTHOR'S ORGANIZ ATION 09/02/[address] [facility] DATE CREATED AUTHOR AUTHOR'S ORGANIZ ATION 08/16/2024 [facility] DATE CREATED AUTHOR AUTHOR'S ORGANIZ ATION 10/31/2024 [facility] Care Teams (unrecognized sec tion and content) Team Status: Active Member Role Status Dates Carlton Donahue NP, [employer] Primary Care Provider Active Team Status: Inactive Member Role Status Dates Carlton Donahue NP, [employer] Primary Care Provider Active Start: May 01, 2024 End: May 01, 2024 Carlton Donahue NP, [employer] Attending Provider Ac tive Start: May 01, 2024 End: May 01, 2024 Carlton Donahue NP, [employer] Referring Provider Ac tive Start: May 01, 2024 End: May 01, 2024 Team Status: Active Member Role Status Dates Carlton Donahue NP, [employer] Primary Care Provider Active Start: May 08, 2024 Carlton Donahue NP, [employer] Attending Provider Ac tive Start: May 08, 2024 Carlton Donahue NP, [employer] Referring Provider Ac tive Start: May 08, 2024 Team Status: Inactive Member Role Status Dates Carlton Donahue NP, [employer] Primary Care Provider Active Start: May 08, 2024 End: May 08, 2024 Carlton Donahue NP, [employer] Attending Provider Ac tive Start: May 08, 2024 End: May 08, 2024 Carlton Donahue NP, [employer] Referring Provider Ac tive Start: May 08, 2024 End: May 08, 2024 Team Status: Active Member Role/Relationship Status Dates Carlton Donahue [employer], [employer] Primary Care Provider Active Team Status: Inactive Member Role/Relationship Status Dates Carlton Donahue [employer], [employer] Primary Care Provider Active Start: September End: September 21, 2024 Dr. Emelina Cardenas MD Attending Provider Active Start: September 21, 2024 End: September 21, 2024 Dr. Emelina Cardenas MD Referring Provider Active Start: September 21, 2024 End: September 21, 2024 Team Status: Active Member Role/Relationship Status Dates Carlton Donahue [employer], [employer] Primary Care Provider Active Start: September Dr. Igor Haines MD Attending Provider Active S tart: September 21, 2024 Goals (unrecognized section and content) Goals may be documented in a n alternate sectionGoals may be documented in an alternate section No data available for this section No data available for this section No data available for this section No data available for this section No data available for this sectionGoals may be documented in an alternate section FOR RECORDS PERTAINING TO PATIENTS WHO ARE OR HAVE BEEN ENROLLED IN A CHEMICAL DEPENDENCY/SUBSTANCEABUSE PROGRAM, SOME INFORMATION MAY BE OMITTED. This clinical summary was aggregated from multiple sources. Caution should be exercised in using it in the provision of clinical care. This summary normalizes information from multiple sources, and as a consequence, information in this document may materially change the coding, format and clinical context of patient data. In addition, data may be omitted in some cases. CLINICAL DECISIONS SHOULD BE BASED ON THE PRIMARY CLINICAL RECORDS. [employer] provides no warranty or guarantee of the accuracy or completeness of information in this document.
[2024-11-09 20:08] LABS: Chlamydia By Nucleic Acid AMP Negative (Negative); Gonococcus By Nucleic Acid AMP Negative (Negative)
== END | disposition home or self-care (01) ==
LOC: LABSPEC 14:55
PROVIDERS: PCP Nurse Practitioner Family; Referring Provider Advanced Practice Midwife; Visit Provider Advanced Practice Midwife
DX: O09.90 Supervision of high risk pregnancy, unspecified, unspecified trimester (principal); Z3A.00 Weeks of gestation of pregnancy not specified
CPT/HCPCS: 87086; 87088; 87491; 87591

== ENCOUNTER → 2024-12-03 | Outpatient (CLI) | payer SELFPAY ==
[2024-12-03 12:18] LABS: Hematocrit 35.2 % (37-47); Hemoglobin 12.2 g/dL (12.0-15.0); Immature Granulocytes Count 0.030 X10^3/uL (0.0-0.0); Mean Corp Hgb Conc 34.7 g/dL (32-36); Mean Corpuscular Volume 89.6 fL (81-99); Mean Platelet Vol. 10.2 fl (6.2-12.0); NRBC Flagged by Analyzer 0 % (0-5); Platelet Count 213 K/mm3 (150-450); RBC Distribution Width CV 13.2 % (11.6-14.6); RBC Distribution Width SD 43.8 fl (35.1-43.9); Red Blood Count 3.93 M/mm3 (4.2-5.4); White Blood Count 7.8 K/mm3 (4.4-11.0)
[2024-12-03 13:07] LABS: HIV Nonreactive (Nonreactive); Hepatitis B Surface Antigen Nonreactive (Nonreactive); Hepatitis C Antibody Nonreactive (Nonreactive); Syphilis Antibodies Nonreactive (Nonreactive)
== END | disposition home or self-care (01) ==
LOC: BWCLAB 09:44
PROVIDERS: Advanced Practice Midwife; PCP Nurse Practitioner Family; Visit Provider Obstetrics & Gynecology
DX: O09.90 Supervision of high risk pregnancy, unspecified, unspecified trimester (principal); Z3A.00 Weeks of gestation of pregnancy not specified
CPT/HCPCS: 36415; 85025; 86703; 86762; 86780; 86803; 86850; 86900; 86901; 87340

== ENCOUNTER → 2025-01-04 | Outpatient (CLI) | payer SELFPAY ==
--- NOTE | 2025-01-04 08:27 | US_ITS ---
PROCEDURE: OB ANATOMY SCAN 01/04/2025 REASON FOR EXAM: ANATOMY/CERVICAL LENGTH TECHNIQUE: Procedure Code: USOBANATOMY Modality: US Procedure: OB ANATOMY SCAN COMPARISON: None FINDINGS Number: 1 Position: Breech Placental Position: Anterior and not low-lying. Placental Abnormalities: No evidence of previa. DIMENSIONS: Biparietal Diameter: 5.1 cm: 21 weeks and 4 days: 60 percentile/ Head Circumference: 19.3 cm: 21 weeks and 4 days: 52 percentile/ Abdominal Circumference: 17.5 cm: 22 weeks and 3 days: 79 percentile Femur Length: 3.5 cm: 20 weeks and 1 day: 34 percentile/ ESTIMATED WEIGHT: 457 g plus/-69 g ESTIMATED WEIGHT PERCENTILE (24+ weeks): 74 percentile ESTIMATED GESTATIONAL AGE: Baseline: 21 weeks and 2 days By Ultrasound: 21 weeks and 5 days ESTIMATED DATE OF DELIVERY: Baseline: May 15, 2025 By Ultrasound: May 12, 2025 BIOPHYSICAL ASSESSMENT: Amniotic Fluid Volume: 5.2 cm Amniotic Fluid Index: Within normal limits. (8-24 cm normal range) Cardiac Motion: 160 beats per minute (average) Trunk and Limb Motion: Present. MATERNAL ANATOMY: Adnexa: Neither maternal ovary is successfully identified. Cervical Length (if measured): 3.8 cm ANATOMY: Spine: Limited visualization of the spine due to positioning. Cranium: Unremarkable Cerebellum: Unremarkable Cisterna Magna: Unremarkable Cavum Septum Pellucidi: Unremarkable Lateral Ventricles: Unremarkable Choroid Plexus: Unremarkable Midline Falx: Unremarkable Nuchal Fold: Plaque unremarkable Upper Lip: Unremarkable Heart: Unremarkable Ventricular Outflow Tracts: Unremarkable Stomach: Unremarkable Kidneys: Unremarkable Bladder: Unremarkable Umbilical Cord: Unremarkable Extremities: Unremarkable US/OB Anatomy Scan IMPRESSION: Single live intrauterine gestation with a mean gestational age of 21 weeks and 5 days. Limited visualization of the spine due to positioning. Reading Location: [facility]
--- OUTSIDE RECORDS SUMMARY | 2025-01-04 08:57 | XMS RPT_ITS | CCD ---
Author Organization [facility] Inform ion Partnership [facility] Care Team Providers Care Financial Reporting Accountant Name Role Phone Lab Institutional, [facility] Attending Unavailable Lab Institutional, [facility] Referring Unavailable [place] ENVIRONMENTAL WEB CRAWLER-C, Momo Peña Primary Care Provi delta [place] ENVIRONMENTAL WEB CRAWLER-C, Momo Peña Attending Provider [place] ENVIRONMENTAL WEB CRAWLER-C, Momo Peña Referring Provider GODFREY DEICER REPAIRER - CASTING TRUCKER, MOMO Quevedo Primary Care Phys ician RONALD FONTENOT, EMELINA Attending Unavailable GODFREY DEICER REPAIRER - CASTING TRUCKER, MOMO Quevedo Primary Care U re CARDENAS MD, EMELINA Attending Unavailable GODFREY DEICER REPAIRER - CASTING TRUCKER, MOMO Emy Primary Care U navailable GODFREY DEICER REPAIRER - CASTING TRUCKER, MOMO D Primary Care U re CARDENAS MD, EMELINA Attending Unavailable RONALD FONTENOT, EMELINA Attending Unavailable GODFREY DEICER REPAIRER - CASTING TRUCKER, MOMO Emy Primary Care U navailable GODFREY DEICER REPAIRER - CASTING TRUCKER, MOMO Emy Primary Care U re CARDENAS MD, EMELINA Attending Unavailable [place] ENVIRONMENTAL WEB CRAWLER-C, Momo Peña Primary Care Provi delta Dr. Emelina Cardenas MD Attending Provider [phone] Dr. Emelina Cardenas MD Referring Provider Dr. Igor Haines MD Attending Provider [place] ENVIRONMENTAL WEB CRAWLER-C, Momo Peña Primary Care Physi calli Dr. Emelina Cardenas MD Attending Physician Dr. Igor Haines MD Attending Physician Eliana Mckeon RN Attending Physician Unavailab mallika Donahue ENVIRONMENTAL WEB CRAWLER-C, Momo Peña Referring Provider Jennifer Ramirez CNM Attending Physician Jennifer Ramirez CNM Referring Provider [phone] Jennifer Ramirez Attending Unavailable [place], Momo Peña Primary Care Unavail able Godfrey, Momo Peña Referring Unavail able [place], Momo Peña Primary Care Unavail able Jennifer Ramirez Attending Unavailable Jennifer Ramirez Referring Unavailable Godfrey, Momo Peña Primary Care Unavail able Colbye Verena Perdomo Attending Unavailabl e [place], Momo Peña Primary Care Unavail able [place], Momo Peña Attending Unavail able [place], Momo Peña Referring Unavail able [place], Momo Peña Attending Unavail able [place], Momo Peña Primary Care Unavail able [place], Momo Peña Referring Unavail able Verena Rashid Attending Unavailabl e Vande VeldeVerena Referring Unavailabl e [place], Momo Peña Primary Care Unavail able [place], Momo Peña Primary Care Unavail able Verena Rashid Attending Unavailabl e [place], Momo Peña Referring Unavail able Igor Haines Attending Unavailable Godfrey, Momo Peña Primary Care Unavail able Godfrey, Momo Posadanis Primary Care Unavail able Eliana Mckeon Attending Unavailable Godfrey, Momo Peña Primary Care Unavail able [place], Momo Peña Attending Unavail able [place], Momo Peña Referring Unavail able Godfrey, Momo Peña Primary Care Unavail able Godfrey, Momo Peña Attending Unavail able Godfrey, Momo Peña Referring Unavail able Godfrey, Momo Peña Primary Care Unavail able Emelina Cardenas Attending Unavailable RonaldEmelina Referring Unavailable Godfrey, Momo Peña Primary Care Unavail able Godfrey, Momo Peña Attending Unavail able [place], Momo Peña Referring Unavail able Medications Current Medications Medication Drug Class(es) Dates Sig (Normalized) Sig (Original) Ascorbic Acid (2 sources) Vitamin C Start: 10-21-2023 Vitamin C qDay, 0 Refill(s) Start Date: 10/21/23 Status: Ordered Repeat number: 1 letrozole 2.5 mg oral tablet (2 sources) Aromatase Inhibitor Start: 08-11-2024 End: 08-16-2024 letrozole 2.5 mg oral tablet Dose : 2.5 mg = 1 tab(s), Oral, Daily, # 5 tab(s), 0 Refill(s), Pharmacy: [id number], Infertility management, 157, cm, 07/29/24 10:52:00 EDT, Height, kg, 07/29/24 10:52:00 EDT, Dosing Weight Start Date: 08/11/24 Stop Date: 08/16/24 Status: Ordered Quantity: 5.0 Unit: tab(s) Repeat number: 1 Indications: Encounter for procreative management, unspecified; loratadine 10 mg oral tablet (10 sources) Start: 11-08-2015 take 1 tablet by mouth once daily Vit No.[id number] (Classic ) 28 mg iron- 800 mcg tablet (2 sources) Start: 10-30-2024 Prenate Elite oral tablet (5 sources) Start: 07-01-2024 take 1 tablet by mouth once daily Prenate Elite oral tablet Dose = 1 tab(s), Oral, Daily, # 90 tab(s), 3 Refill(s), Pharmacy: [id number], Infertility management Screening for malignant neoplasm [...] Daily, # 90 tab(s), 3 Refill(s), Pharmacy: [id number], Infertility management Screening for malignant neoplasm of cervix, 157, cm, 07/01/24 10:10:00 EDT, Height, kg, 07/01/24 10:10:00 EDT, Dosing Weight Start Date: 07/01/24 Status: Ordered Quantity: 90.0 Unit: tab(s) Repeat number: 4 Indications: Encounter for screening for malignant neoplasm of cervix; Encounter for procreative management, unspecified; vitamin b12 1 mg oral capsule (2 sources) Vitamin B12 Start: 10-30-2024 take 1 capsule by [facility] once daily Completed/Discontinued Medications Medication Drug Class(es) Dates Sig (Normalized) Sig (Original) acetaminophen 325 mg / HYDROcodone bitartrate 5 mg oral tablet (5 sources) Opioid Agonist Start: 11-08-2015 End: 10-30-2024 Hydrocodone-Acetam inophen 1 TABLET tablet Discontinued 1 {tbl} PO EVERY 6 HOURS NEEDED as needed for Pain 20 0 November 08, 2015 12:00am October 30, 2024 8:14am baclofen 10 mg oral tablet (5 sources) gamma-Aminobutyr ic Acid-ergic Agonist Start: 11-08-2015 End: 10-30-2024 take 1 tablet by mouth three times daily as needed for headache Baclofen 10 MG tablet Discontinued 10 mg PO 3 TIMES DAILY NEEDED as needed for Headache November 08, 2015 12:00am October 30, 2024 8:14am Problems Active Problems Problem Classification Problem Date Documented Date Episodic/Chronic Cardiac and circulatory congenital anomalies (10 sources) Arterial malformation; 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] Onset: 12-03-2024 10-21-2023 Chronic Comment on above: 2015 Cardiac and circulatory congenital anomalies (3 sources) H/O: cardiac anomaly 07-29-2024 Episodic Contraceptive and procreative management (3 sources) Patient encounter status; Translations: [Encounter for procreative management, unspecified] Onset: 07-01-2024 Episodic Female infertility (1 source) Female infertility, unspecified; Translations: [Female infertility, unspecified] Onset: 09-25-2024 Chronic Other complications of (4 sources) Elderly primigravida; Translations: [Supervision of elderly primigravida, unspecified trimester] 10-30-2024 Episodic Other complications of (4 sources) High risk ; Translations: [Supervision of high risk , unspecified, unspecified trimester] 10-30-2024 Episodic Comment on above: , LLUVIA 05/15/25, Aj sband: Boy Other complications of (2 sources) Supervision of high risk , unspecified, unspecified trimester; Translations: [Supervision of high risk , unspecified, unspecified trimester] Onset: 12-12-2024 Episodic Other complications of (1 source) Supervision of elderly primigravida, unspecified trimester; Translations: [Supervision of elderly primigravida, unspecified trimester] Onset: 12-03-2024 Episodic Other and delivery including normal (4 sources) ; Translations: [Encounter for supervision of normal , unspecified, unspecified trimester] 11-05-2024 Episodic Comment on above: Discussed genetic/ca rrier testing - undecided Other upper respiratory disease (5 sources) Seasonal allergy 10-21-2023 Chronic Other upper respiratory infections (5 sources) Acute bacterial sinusitis 04-21-2024 Episodic Residual codes; unclassified (1 source) 16 weeks gestation of ; Translations: [16 weeks gestation of ] Onset: 12-03-2024 Episodic Residual codes; unclassified (1 source) 12 weeks gestation of ; Translations: [12 weeks gestation of ] Onset: 11-05-2024 Episodic Unclassified (15 sources) Patient encounter status [...] Test Name Value Interpretation Reference Range Facility CBC W/Diff, Automatedon 10 Absolute Lymph 1.46 X10 3/uL Normal 0.83-4.51 [facility] Comment on above: Performed By: #### L 3890.6301, L100.0100, L509.8002, BTS, L3890.6102, L3890.6006, L509.4006 #### [facility] [address] [place], [place], [id number] Absolute Neut 5.7 X10 3/uL Normal 2.0-7.7 [facility] Comment on above: Performed By: #### L 3890.6301, L100.0100, L509.8002, BTS, L3890.6102, L3890.6006, L509.4006 #### [facility] [address] [place], [address] Basophils/100 WBC (Bld) 0.3 % Normal 0-1 [facility] Comment on above: Performed By: #### L 3890.6301, L100.0100, L509.8002, BTS, L3890.6102, L3890.6006, L509.4006 #### [facility] [address] [place], [address] Eosinophils/100 WBC (Bld) 1.3 % Normal 0-5 [facility] Comment on above: Performed By: #### L 3890.6301, L100.0100, L509.8002, BTS, L3890.6102, L3890.6006, L509.4006 #### [facility] [address] [place], [address] Erythrocyte distribution width (RBC) [Ratio] 13.2 % Normal 11.6-14.6 [facility] Comment on above: Performed By: #### L 3890.6301, L100.0100, L509.8002, BTS, L3890.6102, L3890.6006, L509.4006 #### [facility] [address] [place], [address] Hematocrit (Bld) [Volume fraction] 35.2 % Low 37-47 [facility] Comment on above: Performed By: #### L 3890.6301, L100.0100, L509.8002, BTS, L3890.6102, L3890.6006, L509.4006 #### [facility] [address] [place], [address] Hemoglobin (Bld) [Mass/Vol] 12.2 g/dL Normal 12.0-15.0 [facility] Comment on above: Performed By: #### L 3890.6301, L100.0100, L509.8002, BTS, L3890.6102, L3890.6006, L509.4006 #### [facility] [address] [place], [address] IG% 0.400 Normal 0.0-0.9 [facility] Comment on above: Result Comment: IG% - Immature Granulocytes (promyelocytes, myelocytes and metamyelocytes) > 1% indicates that a LEFT SHIFT is Present. Performed By: #### L 3890.6301, L100.0100, L509.8002, BTS, L3890.6102, L3890.6006, L509.4006 #### [facility] [address] [place], [address] Lymphocytes/100 WBC (Bld) 18.8 % Low 19-41 [facility] Comment on above: Performed By: #### L 3890.6301, L100.0100, L509.8002, BTS, L3890.6102, L3890.6006, L509.4006 #### [facility] [address] [place], [address] MCH (RBC) [Entitic mass] 31.0 pg Normal 27.0-32.0 [facility] Comment on above: Performed By: #### L 3890.6301, L100.0100, L509.8002, BTS, L3890.6102, L3890.6006, L509.4006 #### [facility] [address] [place], [address] MCHC (RBC) [Mass/Vol] 34.7 g/dL Normal 32-36 [facility] Comment on above: Performed By: #### L 3890.6301, L100.0100, L509.8002, BTS, L3890.6102, L3890.6006, L509.4006 #### [facility] [address] [place], [address] MCV (RBC) [Entitic vol] 89.6 fL Normal 81-99 [facility] Comment on above: Performed By: #### L 3890.6301, L100.0100, L509.8002, BTS, L3890.6102, L3890.6006, L509.4006 #### [facility] [address] [place], [address] Monocytes/100 WBC (Bld) 6.2 % Normal 0-10 [facility] Comment on above: Performed By: #### L 3890.6301, L100.0100, L509.8002, BTS, L3890.6102, L3890.6006, L509.4006 #### [facility] [address] [place], [address] Neutrophils/100 WBC (Bld) 73.0 % High 47-70 [facility] Comment on above: Performed By: #### L 3890.6301, L100.0100, L509.8002, BTS, L3890.6102, L3890.6006, L509.4006 #### [facility] [address] [place], [address] Nucleated RBC (Bld) [#/Vol] 0 10*3/uL Normal 0-5 [facility] Comment on above: Performed By: #### L 3890.6301, L100.0100, L509.8002, BTS, L3890.6102, L3890.6006, L509.4006 #### [facility] [address] [place], [address] Platelet mean volume (Bld) [Entitic vol] 10.2 fL Normal 6.2-12.0 [facility] Comment on above: Performed By: #### L 3890.6301, L100.0100, L509.8002, BTS, L3890.6102, L3890.6006, L509.4006 #### [facility] [address] [place], [address] Platelets (Bld) [#/Vol] 213 10*3/uL Normal 150-450 [facility] Comment on above: Performed By: #### L 3890.6301, L100.0100, L509.8002, BTS, L3890.6102, L3890.6006, L509.4006 #### [facility] [address] [place], [address] RBC (Bld) [#/Vol] 3.93 10*6/uL Low 4.2-5.4 [facility] Comment on above: Performed By: #### L 3890.6301, L100.0100, L509.8002, BTS, L3890.6102, L3890.6006, L509.4006 #### [facility] [address] [place], [address] RDW SD 43.8 fl Normal 35.1-43.9 [facility] Comment on above: Performed By: #### L 3890.6301, L100.0100, L509.8002, BTS, L3890.6102, L3890.6006, L509.4006 #### [facility] [address] [place], [address] WBC (Bld) [#/Vol] 7.8 10*3/uL Normal 4.4-11.0 [facility] Comment on above: Performed By: #### L 3890.6301, L100.0100, L509.8002, BTS, L3890.6102, L3890.6006, L509.4006 #### [facility] [address] [place], [address] HIVon 12-03-2024 HIV Non-Reactive Normal Nonreactive [facility] Comment on above: Result Comment: Non- Reactive Reactive Repeatedly reactive samples must be confirmed according to CDC recommended confirmatory algorithms. The subresults for either HIVAG or AHIV can be used as an aid in the selection of the confirmation algorithm for reactive samples. Send out specimens with Reactive results to [facility] for confirmation. Order the HIV antibody detection and differentiation: [id number] Performed By: #### L 3890.6301, L100.0100, L509.8002, BTS, L3890.6102, L3890.6006, L509.4006 ####[facility] [address] [place], [address] Hepatitis C Antibodyon 12-03 Hepatitis C Ab Non-Reactive Normal Nonreactive [facility] Comment on above: Result Comment: Reac tive: Presumptive evidence of antibodies to HCV. Follow CDC recommendations for supplemental testing. Non-Reactive: Antibodies to HCV were not detected; does not exclude the possibility of exposure to HCV Reactive Results are presumptive evidence of antibodies to HCV. Follow CDC recommendations for supplemental testing. Order confirmation testing: HCV Quant by PCR testing - HCVPCR #[id number] Non Reactive: < 0.8 Equivocal: >/= 0.8 to < 1.0 Reactive: >/= 1.0 The CDC requires that a reactive/equivocal HCV antibody result be sent out for confirmation. HCV Quant by PCR testing. Performed By: #### L 3890.6301, L100.0100, L509.8002, BTS, L3890.6102, L3890.6006, L509.4006 ####[facility] [address] [place], [place], [id number] L3890.6102on 12-03-2024 HEP B Surf Ag Non-Reactive Normal Nonreactive [facility] Comment on above: Result Comment: Reac tive: Presumptive evidence of HBV. Repeatedly reactive samples must be confirmed using a neutralization test ([employer] HBsAg Confirmatory Test) Non-Reactive: HBsAg not detected; does not exclude the possibility of exposure to HBV Performed By: #### L 3890.6301, L100.0100, L509.8002, BTS, L3890.6102, L3890.6006, L509.4006 ####[facility] [address] [place], [address] L509.4006on 12-03-2024 Rubella IgG REAC Normal Nonreactive [facility] Comment on above: Result Comment: Anti body Result: Interpretation Non-Reactive: Non-Immune Reactive: Immune The following results were obtained with the [employer] Rubella IgG assay. Results from assays of other manufacturers cannot be used interchangeably. Performed By: #### L 3890.6301, L100.0100, L509.8002, BTS, L3890.6102, L3890.6006, L509.4006 #### [facility] [address] [place], [place], [address] Business Technology Analyst Office Visit Reporton 12-03-2024 Business Technology Analyst Office Visit Report [facility] [address], [address] [place] [address] OFFICE VISIT Date of Service: 12/03/24 MR#: [id number] Acct: [id number] Name: ASAEL LEÓN Rep #: [id number] : 1990 Provider: Dr. Verena Bullock DO Age/Sex: 34/F Location: [facility] Status: Signed Intake Vital Signs 11/05/24 11:47 12/03/24 08:58 12/03/24 09:00 Height 5 ft 1 in 5 ft 1 in 5 ft 1 in Weight: 146 lb 4 oz BMI 27.6 BP 108/69 Intake Visit Reasons: 16wk5d ob Fundraising Director Required: No Is patient in pain?: No Allergies No Known Allergies Allergy (Verified 12/03/24 08:58) Medications ???Medication ???Instructions ???Recorded ???Confirmed ???Type loratadine 10 mg tablet (Allergy 10 mg PO DAILY 11/08/15 12/03/24 H istory Relief (loratadine)) cyanocobalamin (vitamin B-12) 1,000 mcg PO QDAY 10/30/24 5 History 1,000 mcg capsule vits no.126-ferrous fum tab PO 10/30/24 12/03/24 History 28 mg iron-folic acid 800 mcg tablet (Classic ) Last Menstrual Period: 08/08/24 Zika: Zika virus screening: Negative : No PFSH PFSH Medical History Seasonal allergies Surgical History Status post cardiac surgery Family History Aunt Cancer Grandfather Myocardial infarction Heart disease Grandfather Heart disease Brain aneurysm Social History adopted: No household members: spouse current occupational status: unemployed current occupation: [employer] current occupational exposures/hazards: No pets and animals: No history of recent travel: No sexually active: Yes Smoking Status: Never smoker second hand exposure: No alcohol intake: never substance use type: does not use well-balanced diet: daily or most days caffeine: Yes Type: coffee Number of servings: 1 eating out: 1-3 times/week during the past year weight has: remained stable what type of physical activity do you participate in: none brennen/rastafari: Scientology seatbelt use: always do you feel safe at home: Yes additional social history: : Plan B 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 OB Visit LLUVIA Calculator Estimated Delivery Date Method Current WG Current Estimate 05/15/25 LMP (Certain) 16w 5d Expected Delivery Route/Plan Labor Preferences- CB/BF classes: [] labor support person: [] labor intervention preferences: [] pain management options preferred: [] cut cord/dad catch: [] : [] PP control planned: [] discussed possible routes of delivery and associated risks: [] special requests: [] Specific Issue/Plans Covid status: [] Flu vaccine: [] Tdap vaccine: [] Rhogam: [] LARC form signed: [] Problem list reviewed and updated with the most current plan of care details and appropriate orders placed. Relevant counseling for the gestational age provided. Continue routine care and follow up unless otherwise noted in visit notes/problem list details Initial Weight: 143 lb Date -???-???-???-???-???- ???-???-???-???-???-? ??-???- EGA Weight BP Urine Prot -???-???-???-???-???- ???-???-???-???-???-? ??-???- Glucose FHR FuHt Pres Dilation -???-???-???-???-???- ???-???-???-???-???-? ??-???- Effaced St Visit Note 11/05/24 -???-???-???-???-???- ???-???-???-???-???-? ??-???- 12w 5d 143 lb (+0 oz) 117/65 -???-???-???-???-???- ???-???-???-???-???-? ??-???- 164 -???-???-???-???-???- ???-???-???-???-???-? ??-???- KW CRL 6.69 cm cons with LMP. declines NIPT and will get NOB labs next visit 12/03/24 -???-???-???-???-???- ???-???-???-???-???-? ??-???- 16w 5d 146 lb 4 oz (+3 lb 4 oz) 108/69 Negative -???-???-???-???-???- ???-???-???-???-???-? ??-???- Negative 160 -???-???-???-???-???- ???-???-???-???-???-? ??-???- JV- patient is traveling to [facility] for 2 weeks. declines flu shot. rx for promethazine. 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 new ob labs today. ACOG First Trimester First Trimester: Desire for , Alcohol, Tobacco Cessation, Illicit/Recreational Drug/Substance Use, Intimate Partner Violence, Barriers to care, Unstable Housing, Communication Barriers, Environmental/Work Hazards, Anticipated Course of Care, Toxoplasmosis Precat (more content not included)... Normal [facility] Syphilis Antibodieson 2024 Syphilis Abs Non-Reactive Normal Nonreactive [facility] Comment on above: Performed By: #### L 3890.6301, L100.0100, L509.8002, BTS, L3890.6102, L3890.6006, L509.4006 ####[facility] [address] [place], [place], [id number] Type AND Screenon 12-03-2024 Ab SCREEN GEL Negative Normal [facility] Comment on above: Order Comment: PN Performed By: #### L 3890.6301, L100.0100, L509.8002, BTS, L3890.6102, L3890.6006, L509.4006 ####[facility] [address] [place], [place], [id number] ABO and Rh group Nom (Bld) Blood group A Rh(D) positive Normal [facility] Comment on above: Order Comment: PN Performed By: #### L 3890.6301, L100.0100, L509.8002, BTS, L3890.6102, L3890.6006, L509.4006 ####[facility] [address] [place], [address] Chlamydia/GC MELODY aptimaon CHLAMY,NUC ACID Negative Normal Negative [facility] Comment on above: Performed By: #### M 100.2200, L7000.1800 #### [facility] [address] [place], [address] GC BY NUC ACID Negative Normal Negative [facility] Comment on above: Result Comment: Perf ormed at: =G - [facility] [address] [id number] Lime Mixer: Morelia Jimenez MD, Phone: [phone] Performed By: #### M 100.2200, L7000.1800 #### [facility] [address] [place], [address] Urine Cultureon 11-07-2024 URC Mixed Gram Pos Gram Neg Org [place] Count <1000 MIXC Mixed contaminants. Submit a new specimen if indicated. Normal [facility] Comment on above: Performed By: #### M 100.2200, L7000.1800 #### [facility] [address] [place], [address] Chlamydia trachomatis rRNA d etection by probe and target amplification methodOrdered By: Jennifer Ramirez on 11-05-2024 C. trachomatis rRNA MELODY+probe Ql (Unsp spec) Negative Negative [facility] Neisseria gonorrhoeae nuclei c acid detection by amplified probe techniqueOrdered By: Jennifer Ramirez on 11-05-2024 N. gonorrhoeae DNA MELODY+probe Ql (Unsp spec) Negative Negative [facility] Comment on above: Performed at: =G - L [address] [id number] Director: Morelia Jimenez MD, Phone: [phone] Business Technology Analyst Office Visit Reporton 11-05-2024 Business Technology Analyst Office Visit Report [facility], [address] [place] [address] OFFICE VISIT Date of Service: 11/05/24 MR#: [id number] Acct: [id number] Name: ASAEL LEÓN Rep #: [id number] : 1990 Provider: DARIUS Gilliam ams Age/Sex: 34/F Location: [facility] Status: Signed Intake Vital Signs 11/08/15 19:37 11/05/24 11:44 11/05/24 11:47 Height 5 ft 1 in 5 ft 1 in 5 ft 1 in Weight: 143 lb BMI 27.0 BP 117/65 Intake Visit Reasons: *NEW* NOB [facility]I 12w5d, LLUVIA 05/15 Fundraising Director Required: No Is patient in pain?: No Allergies No Known Allergies Allergy (Verified 11/05/24 11:45) Medications ???Medication ???Instructions ???Recorded ???Confirmed ???Type loratadine 10 mg tablet (Allergy 10 mg PO DAILY 11/08/15 11/05/24 H istory Relief (loratadine)) cyanocobalamin (vitamin B-12) 1,000 mcg PO QDAY 10/30/24 5 History 1,000 mcg capsule vits no.126-ferrous fum tab PO 10/30/24 11/05/24 History 28 mg iron-folic acid 800 mcg tablet (Classic ) Last Menstrual Period: 08/08/24 Zika: Zika virus screening: Negative : Yes Have you fallen in the past year?: No PFSH PFSH Medical History (Updated 11/05/24 @ 11:45 by Aylin Rojo RN) Seasonal allergies Surgical History Status post cardiac surgery Family History Aunt Cancer Grandfather Myocardial infarction Heart disease Grandfather Heart disease Brain aneurysm Social History (Updated 10/30/24 @ 08:23 by Eliana Mckeon RN) adopted: No household members: spouse service: No current occupational status: unemployed current occupation: [employer] current occupational exposures/hazards: No pets and animals: No history of recent travel: No sexually active: Yes Smoking Status: Never smoker second hand exposure: No alcohol intake: never substance use type: does not use well-balanced diet: daily or most days caffeine: Yes Type: coffee Number of servings: 1 eating out: 1-3 times/week during the past year weight has: remained stable what type of physical activity do you participate in: none brennen/rastafari: Scientology seatbelt use: always do you feel safe at home: Yes additional social history: : [employer] -> changing to [employer] working History 1 Elective abortions 0 Hx Para 0 Spontaneous abortions 0 Hx # Term Pregnancies Ectopic pregnancies Hx # Pregnancies Multiple births # of living children HPI *NEW* NOB [facility] 12w5d, [facility]UV[facility] 05/15 Details: ASAEL LEÓN is a 34 year old who presents for New OB visit. OB Visit [facility]UV[facility] Calculator Estimated Delivery Date Method Current WG Current Estimate 05/15/25 LMP (Certain) 12w 5d Estimated Due Date: 05/15/25 Expected Delivery Route/Plan Labor Preferences- CB/BF classes: [] labor support person: [] labor intervention preferences: [] pain management options preferred: [] cut cord/dad catch: [] : [] PP control planned: [] discussed possible routes of delivery and associated risks: [] special requests: [] Specific Issue/Plans Covid status: [] Flu vaccine: [] Tdap vaccine: [] Rhogam: [] LARC form signed: [] Problem list reviewed and updated with the most current plan of care details and appropriate orders placed. Relevant counseling for the gestational age provided. Continue routine care and follow up unless otherwise noted in visit notes/problem list details Initial Weight: 143 lb Date -???-???-???-???-???- ???-???-???-???-???-? ??-???- EGA Weight BP Urine Prot -???-???-???-???-???- ???-???-???-???-???-? ??-???- Glucose FHR FuHt Pres Dilation -???-???-???-???-???- ???-???-???-???-???-? ??-???- Effaced St Visit Note 11/05/24 -???-???-???-???-???- ???-???-???-???-???-? ??-???- 12w 5d 143 lb (+0 oz) 117/65 -???-???-???-???-???- ???-???-???-???-???-? ??-???- 164 -???-???-???-???-???- ???-???-???-???-???-? ??-???- KW CRL 6.69 cm cons with LMP. 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 Normal [facility] Urine cultureOrdered By: Eros Ramirez on 11-05-2024 Bacteria identified Cx Nom (U) Mixed Gram Pos & Gram Neg Org Abnormal [facility] Echo Completeon 09-21-2024 Echo Complete [facility] Services [address] [place] [address] Echo Complete 09/21/24 0808 MR#: [id number] Acct: [id number] Name: ASAEL LEÓN Rep #: [id number] : 1990 34 From: Igor Haines MD Attending Dr: Dr. Emelina Cardenas MD Status: REG CLI Ordering Dr: Emelina Cardenas MD Date: 08/11/25 Location: [facility] Sex: F C Admitted: Reason For Study [...] sec Doppler Measurements Calculations MV E max lisa: 104.1 cm/sec Lat Peak E' Lisa: 17.0 cm/sec Med Peak E' Lisa: 14.4 cm/sec MV A max lisa: 39.2 cm/sec E/E' lat: 6.1 E/E' med: [...] PA V2 max: 97.7 cm/sec TR max lisa: 218.3 cm/sec TR max P.1 mmHg ECHO/Echo Complete Interpretation Summary Normal LV size. The left ventricular ejection fraction is 55 %. No regional wall motion abnormalities noted. The global longitudinal strain is normal. The global longitudinal strain = -20.6 % (normal). Structurally normal valves. Ordering Physician: Emelina Cardenas Referring Physician: Emelina Cardenas M.D. Performed By: Birgit Wayne RDCS 09/21/24 1348 Date Igor Haines MD CC: CHICA Donahue; Dr. Emelina Cardenas MD Date Dictated: 09/21/24 0808 Date Transcribed: 09/21/241347 Purifying Plant Operator: Signed Normal [facility] Echocardiogram study reportO rdered By: Igor Haines on 09-21-2024 Study report [facility] Cardiovascular Services [address] [place] [address] Echo Complete 09/21/24807 MR#: [id number] Acct: [id number] Name: ASAEL LEÓN Rep #:[id number] : 1990 34 From: Igor Quevedo Attending Dr: Dr. Emelina Cardenas MD Status: REG CLI Ordering Dr: Emelina Cardenas MD Date: Location: [facility] Sex: F C Admitted: Reason For Study [...] Doppler Measurements & Calculations MV E max lisa: 104.1 cm/sec Lat Peak E' Lisa: 17.0 cm/sec Med Peak E' Lisa: 14.4 cm/sec MV A max lisa: 39.2 cm/sec E/E' lat: 6.1 E/E' med: [...] PA V2 max: 97.7 cm/sec TR max lisa: 218.3 cm/sec TR max P.1 mmHg ECHO/Echo Complete Interpretation Summary Normal LV size. The left ventricular ejection fraction is 55 %. No regional wall motion abnormalities noted. The global longitudinal strain is normal. The global longitudinal strain = -20.6% (normal). Structurally normal valves. Ordering Physician: Emelina Cardenas Referring Physician: Emelina Cardenas M.D. Performed By: Birgit Wayne RDCS 09/21/24 1348 Date _ Igor Haiens MD CC: CHICA Donahue; Dr. Emelina Cardenas MD ~ Date Dictated: 09/21/24 0808 Date Transcribed: 09/21/24 1348 Purifying Plant Operator: Signed [facility] Work Phone: LABORATORYOrdered By: Payton Haider on 08-13-2024 HCG ( test) Ql Negative (08/13/24 11:11 AM) Normal AO Manual Urine SS test (u) int Not detected Invalid Interpretation Code AO Manual Urine SS PREGUon 08-13-2024 HCG ( test) Ql (U) Negative Normal [facility] Comment on above: Performed By: #### A SUZIE PEREIRA #### [address] [address] test (u) int Not detected Invalid Interpretation Code [facility] Comment on above: Performed By: #### A SUZIE PEREIRA #### [facility] [address] [place], [place] [address] XR HYSTEROSALPINGOGRAPHYon 0 08-13-2024 XR HYSTEROSALPINGOGRAPHY ORIGINAL EXAMINATION: HYSTEROSALPINGOGRAM08/13/2024 12:15 pm COMPARISON: None available HISTORY: ORDERING SYSTEM PROVIDED HISTORY: Reason for Exam: INFERTILITY FINDINGS: A catheter was placed through the cervical os and contrast material was instilled into the uterus by the railway signalling engineer. Spot films were obtained by the radiologist. [...] 08/13/2024 1:12:18 PM Ordering Provider: EMELINA CARDENAS Normal [facility] LABORATORYOrdered By: SYSTEM SYSTEM on [...] Third trimester 48.40 - 422.50 ng/ml PROGon 06-20-2025 Progesterone Level 29.3 ng/mL Normal [facility] Comment on above: Result Comment: Adul t Female Progesterone Reference Ranges: Follicular phase <0.21 - 1.40 ng/mL Luteal phase 3.34 - 25.56 ng/mL Mid-Luteal phase 4.44 - 28.03 ng/mL Postmenopausal <0.21 - 0.73 ng/ml Female: First trimester 11.22 - 90.00 ng/ml Second trimester 25.55 - 89.40 ng/ml Third trimester 48.40 - 422.50 ng/ml Performed By: #### A KELLI, ABSGEL #### Erika Medford [address] [place], [place] [address] [employer] Cytology Reporton 2024 [employer] Cytology Report . Pathology Reports Accession: Collected Date/Time: Received Date/Time: Pathologist: [id number] 07/01/2024 10:57 EDT 07/01/2024 18:00 EDT [employer] Cytology Report SPECIMEN: Specimen Description: Liquid Prep [...] undetectable or below the pre-set threshold. The jonah High-Risk HPV DNA Test is not intended for use as a screening device for Pap normal women under age 30 and is not intended to substitute for regular Pap screening. The jonah High-Risk HPV DNA Test is designed to [...] Reports Accession: Collected Date/Time: Received Date/Time: Pathologist: [id number] 07/01/2024 10:57 EDT 07/01/2024 18:00 EDT COMMENT: This Pap Test was successfully processed and evaluated with the assistance of the [employer] ThinPrep Test Imaging System. Verified by Pathology report verified by [facility] Screened by: HEMANT Electronically signed by Juhi Abrams Sign-Out Date: 07/09/2024 12:16 Performing Lab: [facility], [address] [place] [address] Pathology Dept Disclaimer The Pap test is a screening test for cervical cancer. As evidenced by published data, it is subject to both inherent false negative and false positive results. Your patient's results should be interpreted in context with pertinent clinical history including gynecological examination. Normal [facility] HPVon 07-07-2024 HPV Interp See Interp HPVN Normal See Interp HPVN [facility] Comment on above: Order Comment: Order placed by AP_HPV_ORDER rule from [id number] Result Comment: Clinical Interpretation: High Risk HPV Typing: NEGATIVE HPV types 16, 18, 31, 33, 35, 39, 45, 51, 52, 56, 58, 59, 66 and 68 DNA were undetectable or below the pre-set threshold. The jonah High-Risk HPV DNA Test is not intended for use as a screening device for Pap normal women under age 30 and is not intended to substitute for regular Pap screening. The jonah High-Risk HPV DNA Test is designed to [...] By: #### A SUZIE PEREIRA #### Erika Medford [address] [place], [place] [address] HPV Source Cervix Normal [facility] Comment on above: Order Comment: Order placed by AP_HPV_ORDER rule from [id number] Performed By: #### A SUZIE PEREIRA #### [facility] [address] [place], [place] [address] BVPCRon 07-03-2024 Bacterial Vaginosis Positive Abnormal Negative [facility] Comment on above: Result Comment: Mole cular methodology performed on the Likelii System. Performed By: #### C VTV, NGPCR1, BVPCR, CTPCR #### [place] [address] CVTVon 07-03-2024 Lisy glabrata Negative Normal Negative [facility] Comment on above: Result Comment: p - Assay processing error. Performed By: #### C VTV, NGPCR1, BVPCR, CTPCR #### [place] [address] Lisy Species Negative Normal Negative [facility] Comment on above: Result Comment: p - Assay processing error. Molecular methodology performed on the Likelii System. Performed By: #### C VTV, NGPCR1, BVPCR, CTPCR #### [place] [address] Trichomonas vaginalis Negative Normal Negative [facility] Comment on above: Result Comment: p - Assay processing error. Performed By: #### C VTV, NGPCR1, BVPCR, CTPCR #### [place] [address] CTPCRon 07-02-[address]omatis Interp See CT Interp N Normal See CT Interp N [facility] Comment on above: Result Comment: Clinical Interpretation: C. trachomatis DNA not detected. Specimen is presumptive negative for C. trachomatis. A negative result does not preclude C. trachomatis infection because results depend on adequate specimen collection, absence of inhibitors, and sufficient DNA to be detected. Performed By: #### C VTV, NGPCR1, BVPCR, CTPCR #### [place] [address] C.trachomatis PCR Negative Normal Negative [facility] Comment on above: Result Comment: Suri yanez (PCR) assay performed on the Josse Jonah 4800 system. Performed By: #### C VTV, NGPCR1, BVPCR, CTPCR #### [address] [address] Chlam Source Cervix Normal [facility] Comment on above: Performed By: #### C VTV, NGPCR1, BVPCR, CTPCR #### [address] [address] HEGMC0el 07-02-2024 GC PCR Source Cervix Normal [facility] Comment on above: Performed By: #### C VTV, NGPCR1, BVPCR, CTPCR #### [address] [address] N. gonorrhoeae (PCR) Negative Normal Negative [facility] Comment on above: Result Comment: Mole cular (PCR) assay performed on the Josse Jonah 4800 System. Performed By: #### C VTV, NGPCR1, BVPCR, CTPCR #### [address] [address] N. gonorrhoeae Interp See NG Interp N Normal See NG Interp N [facility] Comment on above: Result Comment: Clinical Interpretation: N. gonorrhoeae DNA not detected. Specimen is presumptive negative for N. gonorrhoeae. A negative result does not preclude Neisseria gonorrhoeae infection because results depend on adequate specimen collection, absence of inhibitors, and sufficient DNA to be detected. Performed By: #### C VTV, NGPCR1, BVPCR, CTPCR #### [address] [address] RPRon 07-02-2024 Reagin Ab RPR Ql (S) Non-Reactive Normal Non-Reactive [facility] Comment on above: Result Comment: [...] abnormal serum globulins. Performed By: #### A KELLI ABSGEL #### [address] [address] RUBISon 07-02-[address] Positive Normal Positive [facility] Comment on above: Result Comment: This immune status assay detects IgM and/or IgG antibody to Rubella. Interpret results in conjunction with clinical history. POS: Antibody detected; exposure at undetermined recent or distant time. If clinically indicated, order Rubella IGM to rule out recent infection. NEG: No antibody detected. Performed By: #### A SUZIE PEREIRA #### [place] [address] .Auto Diffon 07-01-2024 Basophil, Absolute 0.0 10 3/mcL Normal 0.0-0.3 [facility] Comment on above: Performed By: #### T SH, ADIFF, ANEU, FT3, FT4, CBC #### [place] [address] #### HBSAG, RPR, PROG, RUBIS #### [address] [address] Basophils/100 WBC (Bld) 0.5 % Normal 0.0-2.5 [facility] Comment on above: Performed By: #### T SH, ADIFF, ANEU, FT3, FT4, CBC #### [place] [address] #### HBSAG, RPR, PROG, RUBIS #### [address] [address] Eosinophil, Absolute 0.1 10 3/mcL Normal 0.0-0.7 [facility] Comment on above: Performed By: #### T SH, ADIFF, ANEU, FT3, FT4, CBC #### [place] [address] #### HBSAG, RPR, PROG, RUBIS #### [address] [address] Eosinophils/100 WBC (Bld) 1.4 % Normal 0.0-6.0 [facility] Comment on above: Performed By: #### T SH, ADIFF, ANEU, FT3, FT4, CBC #### [place] [address] #### HBSAG, RPR, PROG, RUBIS #### [address] [address] Lymphocyte, Absolute 1.7 10 3/mcL Normal 0.9-4.3 [facility] Comment on above: Performed By: #### T SH, ADIFF, ANEU, FT3, FT4, CBC #### [place] [address] #### HBSAG, RPR, PROG, RUBIS #### [address] [address] Lymphocytes/100 WBC (Bld) 28.9 % Normal 20.0-40.0 [facility] Comment on above: Performed By: #### T SH, ADIFF, ANEU, FT3, FT4, CBC #### [place] [address] #### HBSAG, RPR, PROG, RUBIS #### [address] [address] Monocyte, Absolute 0.4 10 3/mcL Normal 0.1-1.4 [facility] Comment on above: Performed By: #### T SH, ADIFF, ANEU, FT3, FT4, CBC #### [place] [address] #### HBSAG, RPR, PROG, RUBIS #### [address] [address] Monocytes/100 WBC (Bld) 7.0 % Normal 2.0-13.0 [facility] Comment on above: Performed By: #### T SH, ADIFF, ANEU, FT3, FT4, CBC #### [place] [address] #### HBSAG, RPR, PROG, RUBIS #### [address] [address] Neutrophils/100 WBC (Bld) 62.2 % Normal 50.0-75.0 [facility] Comment on above: Performed By: #### T SH, ADIFF, ANEU, FT3, FT4, CBC #### [address] [address] #### HBSAG, RPR, PROG, RUBIS #### [address] [address] .NEUABSon 07-01-2024 Neutrophil, Absolute 3.6 10 3/mcL Normal 2.3-8.1 [facility] Comment on above: Performed By: #### T SH, ADIFF, ANEU, FT3, FT4, CBC #### [address] [address] #### HBSAG, RPR, PROG, RUBIS #### [address] [address] ABO/Rh (Gel)on 07-01-2024 ABO/Rh Interp Positive Invalid Interpretation Code [facility] Comment on above: Performed By: #### A KELLI ABSIKE #### [address] [address] ABS (Gel)on 07-01-2024 ABSC Interp (Gel) Negative Normal [facility] Comment on above: Performed By: #### A KELLI ABSGEL #### [address] [address] CBCon 07-01-2024 Erythrocyte distribution width (RBC) [Ratio] 12.7 % Normal 11.5-15.5 [facility] Comment on above: Performed By: #### T SH, ADIFF, ANEU, FT3, FT4, CBC #### [address] [address] #### HBSAG, RPR, PROG, RUBIS #### [address] [address] Hematocrit (Bld) [Volume fraction] 37.4 % Normal 34.0-46.0 [facility] Comment on above: Performed By: #### T SH, ADIFF, ANEU, FT3, FT4, CBC #### [place] [address] #### HBSAG, RPR, PROG, RUBIS #### [place] [address] Hgb 12.8 G/dL Normal 12.0-16.0 [facility] Comment on above: Performed By: #### T SH, ADIFF, ANEU, FT3, FT4, CBC #### [place] [address] #### HBSAG, RPR, PROG, RUBIS #### [place] [address] MCH (RBC) [Entitic mass] 29.1 pg Normal 27.0-33.0 [facility] Comment on above: Performed By: #### T SH, ADIFF, ANEU, FT3, FT4, CBC #### [place] [address] #### HBSAG, RPR, PROG, RUBIS #### [place] [address] MCHC 34.3 G/dL Normal 32.0-36.0 [facility] Comment on above: Performed By: #### T SH, ADIFF, ANEU, FT3, FT4, CBC #### [place] [address] #### HBSAG, RPR, PROG, RUBIS #### [place] [address] MCV (RBC) [Entitic vol] 85.0 fL Normal 80.0-99.0 [facility] Comment on above: Performed By: #### T SH, ADIFF, ANEU, FT3, FT4, CBC #### [place] [address] #### HBSAG, RPR, PROG, RUBIS #### [place] [address] Platelet 189 10 3/mcL Normal 150-450 [facility] Comment on above: Performed By: #### T SH, ADIFF, ANEU, FT3, FT4, CBC #### [place] [address] #### HBSAG, RPR, PROG, RUBIS #### [place] [address] Platelet mean volume (Bld) [Entitic vol] 8.6 fL Normal 6.6-10.5 [facility] Comment on above: Performed By: #### T SH, ADIFF, ANEU, FT3, FT4, CBC #### [place] [address] #### HBSAG, RPR, PROG, RUBIS #### [place] [address] RBC 4.40 10 6/mcL Normal 4.10-5.30 [facility] Comment on above: Performed By: #### T SH, ADIFF, ANEU, FT3, FT4, CBC #### [place] [address] #### HBSAG, RPR, PROG, RUBIS #### [place] [address] WBC 5.7 10 3/mcL Normal 4.5-10.8 [facility] Comment on above: Performed By: #### T SH, ADIFF, ANEU, FT3, FT4, CBC #### [place] [address] #### HBSAG, RPR, PROG, RUBIS #### [place] [address] FT3on 07-01-2024 Free T3 [Mass/Vol] 2.52 pg/mL Normal 2.30-4.00 [facility] Comment on above: Performed By: #### A SUZIE PEREIRA #### [place] [address] FT4on 07-01-2024 Free T4 [Mass/Vol] 0.91 ng/dL Normal 0.76-1.46 [facility] Comment on above: Performed By: #### A SUZIE PEREIRA #### [facility] [address] [place], [place] [address] HBSAGon 07-01-2024 Hep B Surf Ag Non-Reactive Normal Non-Reactive [facility] Comment on above: Performed By: #### A SUZIE PEREIRA #### [facility] [address] [place], [place] [address] LABORATORYOrdered By: Bishnu Rosenberg on 07-01-2024 Bacterial Vaginosis Positive 3 *ABN* (07/01/24 4:02 PM) Invalid Interpretation Code Negative AH Auto Viro/Sero SS Comment on above: Interpretive Data: M olecular methodology performed on the [employer] Bimble System. C. trachomatis DNA MELODY+probe Ql (Unsp [...] olecular (PCR) assay performed on the [employer] 4800 system. Lisy glabrata PCR Negative 4 (07/01/24 4:02 PM) Normal Negative [facility] Auto Viro/Sero SS Comment on above: Result Comment: p - Assay processing error. Lisy Species Negative 1, 2 (07/01/24 4:02 PM) Normal Negative AH Auto Viro/Sero SS Comment on above: Result Comment: p - Assay processing error. Interpretive Data: M olecular methodology performed on the [employer] Bimble System. N. gonorrhoeae DNA MELODY+probe Ql (Unsp spec) Negative 6 (07/01/24 4:02 PM) Normal Negative AH Auto Viro/Sero SS Comment on above: Interpretive Data: M olecular (PCR) assay performed on the [employer] 4800 System. N. gonorrhoeae DNA MELODY+probe Ql [...] SS Lymphocytes/100 WBC (Bld) 28.9 % Normal 20.0 - 40. 0 % AO Workflow SS MCH (RBC) [Entitic [...] SS Neutrophils/100 WBC (Bld) 62.2 % Normal 50.0 - 75. 0 % AO Workflow SS Platelet mean volume [...] AO Workflow SS LABORATORYOrdered By: Jose Elias Jj on 07-01-2024 HBV surface Ag IA Ql Non-Reactive (07/01/24 11:13 AM) Normal Non-Reactive AH ADM SS Laboratory - Specimen inform ationOrdered By: Bishnu Rosenberg on 07-01-2024 Specimen source Nom (Unsp spec) Cervix (07/01/24 4:02 PM) Normal AH Auto Viro/Sero SS PROGon 07-01-2024 Progesterone Level 9.0 ng/mL Normal [facility] Comment on above: Result Comment: Adul t Female Progesterone Reference Ranges: Follicular phase <0.21 - 1.40 ng/mL Luteal phase 3.34 - 25.56 ng/mL Mid-Luteal phase 4.44 - 28.03 ng/mL Postmenopausal <0.21 - 0.73 ng/ml Female: First trimester 11.22 - 90.00 ng/ml Second trimester 25.55 - 89.40 ng/ml Third trimester 48.40 - 422.50 ng/ml Performed By: #### A SUZIE PEREIRA #### [place] [id number] [place], [place] [address] TSHon 07-01-2024 TSH Qn 1.94 m[IU]/L Normal 0.36-3.74 [facility] Comment on above: Performed By: #### A SUZIE PEREIRA #### [address] [address] Bilat Brst Denzel Stand Aloneo n 05-08-2024 Bilat Brst Denzel Stand Alone [facility] Imaging Services [address] [place] [id number] Bilat Brst Denzel Stand Alone MR#: [id number] Acct: [id number] Name: ASAEL LEÓN Rep #: [id number] : 1990 F 33 From: Dee Vázquez MD PCP: CHICA Linn Status: REG CLI Study: Bilat Brst Denzel Stand Alone Date of Exam: 04/12 10/05 Exam# [id number] Ordering Dr: Momo Donahue NP ENVIRONMENTAL WEB CRAWLER-C EXAM: DIAG MAMM W/CAD, BILAT; BILAT BRST [...] be mailed to the patient. Reading Location: [id number] CC: CHICA Donahue Purifying Plant Operator: Signed Normal [facility] Breast Limited Unilateralon 05-08-2024 Breast Limited Unilateral [facility] Imaging Services [address] [place] [id number] Breast Limited Unilateral MR#: [id number] Acct: [id number] Name: ASAEL LEÓN Rep #: [id number] : 1990 F 33 From: Dee Vázquez MD PCP: CHICA Linn Status: REG CLI Study: Breast Limited Unilateral Date of Exam: Exam# [id number] Ordering Dr: Momo Donahue NP ENVIRONMENTAL WEB CRAWLER-C EXAM: DIAG MAMM W/CAD, BILAT; BILAT BRST [...] be mailed to the patient. Reading Location: [facility] CC: CHICA Donahue Purifying Plant Operator: Signed Normal [facility] Breast imaging reportOrdered By: Dee Vázquez on 05-08-2024 Study report [facility] Imaging Services [address] [place] [address] DIAG MAMM W/CAD, BILAT MR#: [id number] Acct: [id number] Name: ASAEL LEÓN Rep #: [id number] : 1990 F 33 From: Gilma Vázquez MD PCP: CHICA Linn Status: [facility] CLI Study:DIAG MAMM W/CAD, BILAT Date of Exam: 05/08/24 Exam# [id number] Ordering Dr: Momo Donahue NP ENVIRONMENTAL WEB CRAWLER-C EXAM: DIAG MAMM W/CAD, BILAT; BILAT BRST [...] be mailed to the patient. Reading Location: [facility] CC: ENVIRONMENTAL WEB CRAWLER-Ly Donahue ~ Purifying Plant Operator: Signed [facility] Study report [facility] Imaging Services [address] [place] [id number] Bilat Brst Denzel Stand Alone MR#: [id number] Acct: [id number] Name: ASAEL LEÓN Rep #: [id number] : 1990 F 33 From: Gilma Vázquez MD PCP: CHICA Linn Status: [facility] Study:Bilat Brst Denzel Stand Alone Date of Exa m: 05/08/24 Exam# [id number] Ordering Dr: Momo Donahue NP ENVIRONMENTAL WEB CRAWLER-C EXAM: DIAG MAMM W/CAD, BILAT; BILAT BRST [...] be mailed to the patient. Reading Location: [id number] CC: CHICA Donahue ~ Purifying Plant Operator: Signed [facility] DIAG MAMM W/CAD, BILATon DIAG MAMM W/CAD, BILAT [facility] Imaging Services [address] [place] [id number] DIAG MAMM W/CAD, BILAT MR#: [id number] Acct: [id number] Name: ASAEL LEÓN Rep #: [id number] : 1990 F 33 From: Dee Vázquez MD PCP: CHICA Linn Status: [facility] Study: DIAG MAMM W/CAD, BILAT Date of Exam: 05/08/24 Exam# [id number] Ordering Dr: Momo Donahue NP ENVIRONMENTAL WEB CRAWLER-C EXAM: DIAG MAMM W/CAD, BILAT; BILAT BRST [...] be mailed to the patient. Reading Location: [facility] CC: CHICA Donahue Purifying Plant Operator: Signed Normal [facility] Anion gap in Serum or Plasma Ordered By: Momo Donahue on 05-01-2024 Anion gap [Moles/Vol] 10 mmol/L 5-15 [facility] BUN/creatinine ratioOrdered By: Momo Donahue on 05-01-2024 Urea nitrogen/Creatinine [Mass ratio] 19.0 mg/mg 10-20 [facility] Bilirubin, totalOrdered By: Momo Donahue on 05-01-2024 Bilirubin [Mass/Vol] 0.33 mg/dL 0.00-1.30 [facility] CBC-Complete Blood Cnt No Di ffon 05-01-2024 Erythrocyte distribution width (RBC) [Ratio] 11.9 % Normal 11.6-14.6 [facility] Comment on above: Performed By: #### L 500.4100, L100.0500, L500.4050 ####[facility] [address] [place], [address] Hematocrit (Bld) [Volume fraction] 35.6 % Low 37-47 [facility] Comment on above: Performed By: #### L 500.4100, L100.0500, L500.4050 ####[facility] [address] [place], [address] Hemoglobin (Bld) [Mass/Vol] 12.1 g/dL Normal 12.0-15.0 [facility] Comment on above: Performed By: #### L 500.4100, L100.0500, L500.4050 ####[facility] [address] [place], [address] MCH (RBC) [Entitic mass] 29.2 pg Normal 27.0-32.0 [facility] Comment on above: Performed By: #### L 500.4100, L100.0500, L500.4050 ####[facility] [address] [place], [address] MCHC (RBC) [Mass/Vol] 34.0 g/dL Normal 32-36 [facility] Comment on above: Performed By: #### L 500.4100, L100.0500, L500.4050 ####[facility] [address] [place], [address] MCV (RBC) [Entitic vol] 86.0 fL Normal 81-99 [facility] Comment on above: Performed By: #### L 500.4100, L100.0500, L500.4050 ####[facility] [address] [place], [address] Platelet mean volume (Bld) [Entitic vol] 10.2 fL Normal 6.2-12.0 [facility] Comment on above: Performed By: #### L 500.4100, L100.0500, L500.4050 ####[facility] [address] [place], [address] Platelets (Bld) [#/Vol] 256 10*3/uL Normal 150-450 [facility] Comment on above: Performed By: #### L 500.4100, L100.0500, L500.4050 ####[facility] [address] [place], [address] RBC (Bld) [#/Vol] 4.14 10*6/uL Low 4.2-5.4 [facility] Comment on above: Performed By: #### L 500.4100, L100.0500, L500.4050 ####[facility] [address] [place], [address] RDW SD 37.7 fl Normal 35.1-43.9 [facility] Comment on above: Performed By: #### L 500.4100, L100.0500, L500.4050 ####[facility] [address] [place], [address] WBC (Bld) [#/Vol] 9.6 10*3/uL Normal 4.4-11.0 [facility] Comment on above: Performed By: #### L 500.4100, L100.0500, L500.4050 ####[facility] [address] [place], [address] Calculated very low density lipoprotein (VLDL) cholesterol measurementOrdered By: Momo Donahue on 05-01-2024 VLDL Cholesterol 9 mg/dL 5-40 [facility] Carbon dioxide, total [Moles /volume] in Central venous bloodOrdered By: Momo Donahue on 05-01-2024 CO2 [Moles/Vol] 25.5 mmol/L 21.0-32.0 [facility] Chloride assayOrdered By: Yoav Donahue on 05-01-2024 Chloride [Moles/Vol] 102 mmol/L 98-108 [facility] Comprehensive Metabolic Prof ilon 05-01-2024 Albumin [Mass/Vol] 4.3 g/dL Normal 3.5-5.0 [facility] Comment on above: Performed By: #### L 500.4100, L100.0500, L500.4050 ####[facility] [address] [place], [address] Albumin/Globulin [Mass ratio] 2.0 {ratio} Normal 0.9-2.4 [facility] Comment on above: Performed By: #### L 500.4100, L100.0500, L500.4050 ####[facility] [address] [place], [address] ALK PHOS 48 U/L Normal 35-104 [facility] Comment on above: Performed By: #### L 500.4100, L100.0500, L500.4050 ####[facility] [address] [place], [address] ALT [Catalytic activity/Vol] 13 U/L Normal <=34 [facility] Comment on above: Performed By: #### L 500.4100, L100.0500, L500.4050 ####[facility] [address], [address] AST [Catalytic activity/Vol] 16 U/L Normal <=31 [facility] Comment on above: Performed By: #### L 500.4100, L100.0500, L500.4050 ####[facility] [address] [place], [address] Bilirubin [Mass/Vol] 0.33 mg/dL Normal 0.00-1.30 [facility] Comment on above: Performed By: #### L 500.4100, L100.0500, L500.4050 ####[facility] [address] [place], [address] BUN/CRE 19.0 RATIO Normal 10-20 [facility] Comment on above: Performed By: #### L 500.4100, L100.0500, L500.4050 ####[facility] [address] [place], [address] Calcium [Mass/Vol] 9.2 mg/dL Normal 7.6-11.0 [facility] Comment on above: Performed By: #### L 500.4100, L100.0500, L500.4050 ####[facility] [address], [address] Chloride [Moles/Vol] 102 mmol/L Normal 98-108 [facility] Comment on above: Performed By: #### L 500.4100, L100.0500, L500.4050 ####[facility] [address] [place], [address] CO2 [Moles/Vol] 25.5 mmol/L Normal 21.0-32.0 [facility] Comment on above: Performed By: #### L 500.4100, L100.0500, L500.4050 ####[facility] [address] [place], [address] Creatinine [Mass/Vol] 0.70 mg/dL Normal 0.70-1.20 [facility] Comment on above: Performed By: #### L 500.4100, L100.0500, L500.4050 ####[facility] [address] [place], [address] GAP 10 Normal 5-15 [facility] Comment on above: Performed By: #### L 500.4100, L100.0500, L500.4050 ####[facility] [address] [place], [address] GFR/1.73 sq M.predicted among non-blacks MDRD (S/P/Bld) [Vol rate/Area] 116 mL/min/{1.73_m2} Normal >60 [facility] Comment on above: Result Comment: mL/m in/1.73m2 CKD-EPI Creatinine Equation (2020) Performed By: #### L 500.4100, L100.0500, L500.4050 ####[facility] [address] [place], [address] Globulin (S) [Mass/Vol] 2.2 g/dL Normal 2.2-4.2 [facility] Comment on above: Performed By: #### L 500.4100, L100.0500, L500.4050 ####[facility] [address] [place], [address] Glucose [Mass/Vol] 96 mg/dL Normal 70-99 [facility] Comment on above: Performed By: #### L 500.4100, L100.0500, L500.4050 ####[facility] [address] [place], [address] Potassium [Moles/Vol] 4.0 mmol/L Normal 3.3-5.1 [facility] Comment on above: Performed By: #### L 500.4100, L100.0500, L500.4050 ####[facility] [address] [place], [address] Sodium [Moles/Vol] 138 mmol/L Normal 133-145 [facility] Comment on above: Performed By: #### L 500.4100, L100.0500, L500.4050 ####[facility] [address] [place], [address] T PROT 6.5 g/dL Normal 5.9-8.4 [facility] Comment on above: Performed By: #### L 500.4100, L100.0500, L500.4050 ####[facility] [address] [place], [address] Urea nitrogen [Mass/Vol] 13 mg/dL Normal 4-19 [facility] Comment on above: Performed By: #### L 500.4100, L100.0500, L500.4050 ####[facility] [address] [place], [address] Erythrocyte distribution wid th ratioOrdered By: Momo Donahue on 05-01-2024 Erythrocyte distribution width (RBC) [Ratio] 11.9 % 11.6-14.6 [facility] Erythrocyte distribution wid th standard deviationOrdered By: Momo Donahue on 05-01-2024 Erythrocyte distribution width (RBC) [Entitic vol] 37.7 fL 35.1-43.9 [facility] GFR/1.73 sq M.predicted navneet g non-blacks MDRD (S/P/Bld) [Vol rate/Area]Ordered By: Momo Donahue on 05-01-2024 Estimated GFR (MDRD) Non-Af Amer 116 >60 [facility] Comment on above: mL/min/1.73m2 CKD-EP I Creatinine Equation (2020) Hematocrit Auto (Bld) [Volum e fraction]Ordered By: Momo Donauhe on 05-01-2024 Hematocrit (Bld) [Volume fraction] 35.6 % Low 37-47 [facility] Hemoglobin measurementOrdere d By: Momo Donahue on 05-01-2024 Hemoglobin (Bld) [Mass/Vol] 12.1 g/dL 12.0-15.0 [facility] LDL calc ser/plasOrdered By: Momo Donahue on 05-01-2024 LDL Cholesterol, Calculated 88 mg/dL [facility] Comment on above: Zcufrglvoz=414-009 m g/dL & Higher Dgeq=550 mg/dL or greater Laboratory - Chemistry and C hemistry - challengeOrdered By: Momo Donahue on 05-01-2024 AST [Catalytic activity/Vol] 16 U/L <32 [facility] Lipid Profileon 05-01-2024 CHOL:HDL 2.11 Normal [facility] Comment on above: Performed By: #### L 500.4100, L100.0500, L500.4050 ####[facility] [address] [place], [address] Cholesterol [Mass/Vol] 185 mg/dL Normal <=200 [facility] Comment on above: Result Comment: Chol esterol level, Desirable <200 mg/dL Borderline high cholesterol 200-239 mg/dL High cholesterol >=240 mg/dL Recommendations of the NCEP Adult Treatment Panel for the following risk-cutoff thresholds for the [place] population. Performed By: #### L 500.4100, L100.0500, L500.4050 ####[facility] [address] [place], [address] Cholesterol in HDL [Mass/Vol] 88 mg/dL Normal [facility] Comment on above: Result Comment: Maritza onal Cholesterol Education Program (NCEP) guidelines: <40 mg/dL: Low HDL-cholesterol (major risk factor for CHD) >= 60 mg/dL: High HDL-cholesterol (negative risk factor for CHD) HDL-cholesterol is affected by a number of factors, e.g. smoking, exercise, hormones, sex and age. Performed By: #### L 500.4100, L100.0500, L500.4050 ####[facility] [address] [place], [address] Cholesterol in LDL [Mass/Vol] 88 mg/dL Normal [facility] Comment on above: Result Comment: Bord vrhgjr=386-856 mg/dL Higher Blhu=796 mg/dL or greater Performed By: #### L 500.4100, L100.0500, L500.4050 ####[facility] [address] [place], [address] Cholesterol in VLDL [Mass/Vol] 9 mg/dL Normal 5-40 [facility] Comment on above: Performed By: #### L 500.4100, L100.0500, L500.4050 ####[facility] [address] [place], [place], [address] Triglyceride [Mass/Vol] 47 mg/dL Normal [facility] Comment on above: Result Comment: The drugs N-Acetylcysteine and Metamizole may falsely depress this assay. Normal range: <150 mg/dL Borderline High: 150-199 mg/dL High: 200-499 mg/dL Very High: >500 mg/dL Performed By: #### L 500.4100, L100.0500, L500.4050 ####[facility] [address] [place], [place], [address] MCV (mean corpuscular volume ) determinationOrdered By: Momo Donahue on 05-01-2024 MCV (RBC) [Entitic vol] 86.0 fL 81-99 [facility] Mean corpuscular hemoglobin (MCH) determinationOrdered By: Momo Donahue on 05-01-2024 MCH (RBC) [Entitic mass] 29.2 pg 27.0-32.0 [facility] Mean corpuscular hemoglobin concentration (MCHC) determinationOrdered By: Momo Donahue on 05-01-2024 MCHC (RBC) [Mass/Vol] 34.0 g/dL 32-36 [facility] Mean platelet volume determi nationOrdered By: Momo Donahue on 05-01-2024 Platelet mean volume (Bld) [Entitic vol] 10.2 fL 6.2-12.0 [facility] Platelet countOrdered By: Yoav Donahue on 05-01-2024 Platelets (Bld) [#/Vol] 256 10*3/uL 150-450 [facility] Potassium (Unsp spec) [Mass/ Vol]Ordered By: Momo Donahue on 05-01-2024 Potassium [Moles/Vol] 4.0 mmol/L 3.3-5.1 [facility] RBC Auto (Bld) [#/Vol]Ordere d By: Momo Donahue on 05-01-2024 RBC (Bld) [#/Vol] 4.14 10*6/uL Low 4.2-5.4 [facility] Screening total cholesterol/ high density lipoprotein (HDL) cholesterol ratioOrdered By: Momo Donahue on 05-01-2024 Cholesterol.total/Cholest usha in HDL [Mass ratio] 2.11 {ratio} [facility] Serum creatinine measurement (mass/volume)Ordered By: Momo Donahue on 05-01-2024 Creatinine [Mass/Vol] 0.70 mg/dL 0.70-1.20 [facility] Serum globulin measurementOr dered By: Momo Donahue on 05-01-2024 Globulin (S) [Mass/Vol] 2.2 g/dL 2.2-4.2 [facility] Serum glucose measurement (m ass/volume)Ordered By: Momo Donahue on 05-01-2024 Glucose [Mass/Vol] 96 mg/dL 70-99 [facility] Serum or plasma alanine uribe otransferase (ALT) measurementOrdered By: Momo Donahue on 05-01-2024 ALT [Catalytic activity/Vol] 13 U/L <35 [facility] Serum or plasma albumin charles urement (mass/volume)Ordered By: Momo Donahue on 05-01-2024 Albumin [Mass/Vol] 4.3 g/dL 3.5-5.0 [facility] Serum or plasma albumin/glob ulin mass ratioOrdered By: Momo Donahue on 05-01-2024 Albumin/Globulin [Mass ratio] 2.0 {ratio} 0.9-2.4 [facility] Serum or plasma alkaline enrique sphatase measurementOrdered By: Momo Donahue on 05-01-2024 ALP [Catalytic activity/Vol] 48 U/L 35-104 [facility] Serum or plasma calcium charles urement (mass/volume)Ordered By: Momo Donahue on 05-01-2024 Calcium [Mass/Vol] 9.2 mg/dL 7.6-11.0 [facility] Serum or plasma cholesterol in HDL measurement (mass/volume)Ordered By: Momo Donahue on 05-01-2024 Cholesterol in HDL [Mass/Vol] 88 mg/dL >40 [facility] Comment on above: National Cholesterol Education Program (NCEP) guidelines:<40 mg/dL: Low HDL-cholesterol (major risk factor for CHD)>= 60 mg/dL: High HDL-cholesterol (negative risk factor for CHD)HDL-cholesterol is affected by a number of factors, e.g. smoking, exercise, hormones, sex and age. Serum or plasma cholesterol measurement (mass/volume)Ordered By: Momo Donahue on 05-01-2024 Cholesterol [Mass/Vol] 185 mg/dL <201 [facility] Comment on above: Cholesterol level, D esirable <200 mg/dLBorderline high cholesterol 200-239 mg/dLHigh cholesterol >=240 mg/dLRecommendations of the NCEP Adult Treatment Panel for the following risk-cutoff thresholds for the [place] population. Serum or plasma urea nitroge n measurement (mass/volume)Ordered By: Momo Donahue on 05-01-2024 Urea nitrogen [Mass/Vol] 13 mg/dL 4-19 [facility] Sodium levelOrdered By: Wilmer Donahue on 05-01-2024 Sodium [Moles/Vol] 138 mmol/L 133-145 [facility] Total proteinOrdered By: Brad Donahue on 05-01-2024 Protein [Mass/Vol] 6.5 g/dL 5.9-8.4 [facility] Triglycerides measurementOrd ered By: Momo Donahue on 05-01-2024 Triglyceride [Mass/Vol] 47 mg/dL <199 [facility] Comment on above: The drugs N-Acetylcy steine and Metamizole may falsely depress this assay. Normal range: <150 mg/dLBorderline High: 150-199 mg/dLHigh: 200-499 mg/dLVery High: >500 mg/dL White blood cell (WBC) count Ordered By: Momo Donahue on 05-01-2024 WBC (Bld) [#/Vol] 9.6 10*3/uL 4.4-11.0 [facility] Non-ELYSIA Drug Screenon 08-30 Non-ELYSIA Drug Screen Collected Normal [facility] Comment on above: Order Comment: [employer] sent to [employer] via fedex Performed By: #### N NID #### [facility] CLIA # [id number] [address] [place] [address] CNOVon 01-28-2017 CNOV Office Visit ([facility]) ----BOGDANASAEL ([id number]) 1990 FDate Time Provider Gtqthqbghi53/18/17 3:45 PM NATALI GARCIAS) [facility] During your visit today, we recorded the [...] Good air exchange noted at the bases. TeO560 % on room airLymphadenopathy: Head (right side): [...] 01/28/2017(No Known Allergies)Date Reviewed: 01/28/2017Reviewed by: Natali Carter) Dieter - Fully AssessedReason for Visit: Sinus Problem [...] Status:Closed by NATALI GARCIAS CNP on 01/28/17 [facility] PROGRESSon 01-28-2017 PROGRESS HNO ID: [id number]: Natali Carter) Linseyervice: (none)Author Type: Nurse PractitionerType: Progress NotesFiled: [...] agreeable to treatment plan.Natali Garcias CNP Normal [facility] Vital Signs Date Time Vital Sign Value Performing Clinician Melissa mcclelland 11-05-2024 11:47-0400 Body height 154.94 cm Momo Donahue NP-C Work Phone: [facility] 11-05-2024 11:44-0400 Body mass index (BMI) [Ratio] 27 kg/m2 Momo Donahue ENVIRONMENTAL WEB CRAWLER-C Work Phone: [facility] 11-05-2024 11:44-0400 Body weight 64.86 kg Momo Donahue NP-C Work Phone: [facility] 11-05-2024 11:44-0400 Diastolic blood pressure 65 mm[Hg] Momo Donahue NP-C Work Phone: [facility] 11-05-2024 11:44-0400 Systolic blood pressure 117 mm[Hg] Momo Donahue ENVIRONMENTAL WEB CRAWLER-C Work Phone: [facility] Encounters Encounter Date Encounter Type Care Provider Facility Start: 01-04-2025 ambulatory Verena Mariee cility:[facility] Start: 12-03-2024 End: 12-03-2024 ambulatory Momo Donahue Facility:[facility] Start: 12-03-2024 End: 12-03-2024 ambulatory Momo Donahue Facility:[facility] Start: 11-05-2024 End: 11-05-2024 ambulatory Momo Donahue ENVIRONMENTAL WEB CRAWLER-C Work Phone: -Laboratory Specimen Start: 11-05-2024 End: 11-05-2024 Patient encounter procedure Jennifer Ramirez CNM -Laboratory Specimen Work Phone: Start: 11-05-2024 End: 11-05-2024 Patient encounter procedure Jennifer Ramirez CNM -[facility] Work Phone: Start: 11-05-2024 End: 11-05-2024 ambulatory Momo Donahue ENVIRONMENTAL WEB CRAWLER-C Work Phone: -[facility] Start: 11-05-2024 End: 11-05-2024 ambulatory Momo Donahue Facility:[facility] Start: 10-30-2024 Non-patient / Non-visit Eliana Mckeon RN -[facility] Work Phone: Start: 10-30-2024 ambulatory Momo Donahue Facility:[facility] Start: 09-21-2024 Non-patient / Non-visit Dr. Igor Haines MD -[facility] Start: 09-21-2024 End: 09-21-2024 ambulatory Momo Donahue ENVIRONMENTAL WEB CRAWLER-C Work Phone: -Cardiovascular Services Start: 09-21-2024 End: 09-21-[address] Emelina Cardenas MD -Cardiovascular Services Work Phone: Start: 09-21-2024 End: 09-21-2024 ambulatory Momo Donahue Facility:[facility] Start: 08-13-2024 End: 08-13-2024 ambulatory MOMO DONAHUE [employer]PA[employer] - [employer] Facility:[facility] Start: 08-13-2024 End: 08-13-2024 Patient encounter procedure EMELINA CARDENAS MD [facility] Start: 07-31-2024 End: 07-31-2024 ambulatory EMELINA CARDENAS MD Facility:[facility] Start: 07-31-2024 End: 07-31-2024 Patient encounter procedure EMELINA CARDENAS MD [facility] Start: 07-01-2024 End: 07-05-2024 ambulatory EMELINA CARDENAS MD Facility:[facility] Start: 07-01-2024 End: 07-05-2024 Outreach Lab EMELINA CARDENAS MD [facility] Start: 07-01-2024 End: 07-01-2024 ambulatory EMELINA CARDENAS MD Facility:[facility] Start: 07-01-2024 End: 07-01-2024 Patient encounter procedure EMELINA CARDENAS MD [facility] Start: 05-08-2024 Encounter for genera l adult medical examination without abnormal findings Momo Donahue [facility] Start: 05-08-2024 End: 05-08-2024 ambulatory Momo Donahue ENVIRONMENTAL WEB CRAWLER-C Work Phone: [facility] Work Phone: Start: 05-08-2024 End: 05-08-2024 Patient encounter procedure Momo Donahue ENVIRONMENTAL WEB CRAWLER-C -[facility] Work Phone: Start: 05-08-2024 End: 05-08-2024 ambulatory Momo Donahue Facility:[facility] Start: 05-06-2024 ambulatory Momo Donahue Facility:[facility] Start: 05-04-2024 Encounter for genera l adult medical examination without abnormal findings Momo Szymanskipkins [facility] Start: 05-04-2024 ambulatory Momo Donahue Facility:[facility] Start: 05-01-2024 End: 05-01-2024 ambulatory Momo Donahue ENVIRONMENTAL WEB CRAWLER-C Work Phone: [facility] Work Phone: Start: 05-01-2024 End: 05-01-2024 Patient encounter procedure Momo Donahue ENVIRONMENTAL WEB CRAWLER-C -Laboratory Work Phone: Start: 05-01-2024 End: 05-01-2024 ambulatory Momo Donahue Facility:[facility] Start: 08-30-2021 ambulatory [facility] Start: 01-28-2017 End: 01-28-2017 Ambulatory [facility] Roque Procedures Date Procedure Procedure Detail Performing Clinician Start: 11-05-2024 Urine culture Momo carrillo ENVIRONMENTAL WEB CRAWLER-C Work Phone: Start: 05-08-2024 Bilateral mammography R rachel Szymanskipkins ENVIRONMENTAL WEB CRAWLER-C Work Phone: Start: 05-08-2024 Ultrasonography of breast Momo Donahue ENVIRONMENTAL WEB CRAWLER-C Work Phone: Start: 02-12-1992 Surgical procedure AMEL GEE CARDENAS MD Comment on above: Heart surgery 3 holes filled in Plan of Treatment Date Care Activity Detail Author Start: 10-30-2024 Hepatitis C antibody measurement [facility] Start: 10-30-2024 Rubella IgG measurement [facility] Start: 10-30-2024 Serologic test for syphilis [facility] Start: 10-30-2024 [facility] CBC W Auto Different ial panel - Blood [facility] Payers Date Payer Category Payer Unknown [id number] 2024 Unknown [id number] 2024 Self-pay [id number] 2024 Unknown 0 [id number] 1990 Unknown [id number] 2.16. [id number] 1990 Unknown [id number] 2.16. [id number] 1990 Unknown [id number] 2.16. [id number] 1990 Unknown [id number] 2.16.8 [id number] 1990 Unknown [id number] 2.16.8 [id number] Unknown [id number] 2.16.8 [id number] Unknown [id number] 2.16.8 [id number] Unknown [id number] 2.16.8 [id number] Unknown [id number] 2.16.8 [id number] Unknown [id number] 2.16.8 [id number] Unknown [id number] 2.16.8 [id number] Unknown [id number] 2.16.8 [id number] Unknown [id number] 2.16.8 [id number] Unknown [id number] 2.16.8 [id number] Unknown [id number] 2.16.8 [id number] Unknown [id number] 2.16.8 [id number] Social History Date Type Detail Facility Start: 11-08-2015 End: 10-30-2024 Tobacco smoking status NHIS Never smoked tobacco (finding) [facility] Start: 05-08-2024 End: 05-12-2024 Sex Female (finding) [facility] Start: 1990 Sex Assigned At Female [address] [place] Sexual Orientation Erika Calderónltheriberto Troncoso Sex Female [facility] Clinical Notes 10-21-2023 to 11-05-2024 Note Date & Type Note Facility 11-05-2024 Evaluation note Diagnosis Onset Date Resolution AMA (advanced maternal age) primigravida 35+ acute November 05, 2024 11:39am AVM (arteriovenous malformation) brain acute November 052024 11:39am acute October 11:39am Supervision of high-risk acute November 052024 11:39am [facility] Work Phone: [phone]) 892-148409-25-2025 [facility] [address] [place] [address], [address] [place] [address] OFFICE VISIT Date of Service: 11/05/24 MR#: [id number] Acct: [id number] Name: ASAEL LEÓN Rep #: [id number] : 1990 Provider: DARIUS Ramirez Age/Sex: 34/F Location: [facility] Status: Signed Intake Vital Signs 11/08/15 19:37 11/05/24 11:44 11/05/24 11:47 Height 5 ft 1 in 5 ft 1 in 5 ft 1 in Weight: 143 lb BMI 27.0 BP 117/65 Intake Visit Reasons: *NEW* NOB CHI 12w5d, LLUVIA 4/4 Fundraising Director Required: No Is patient in pain?: No Allergies No Known Allergies Allergy (Verified 11/05/24 11:45) Medications ?Medication ?Instructions ?Recorded ?Confirmed ?Type loratadine 10 mg tablet (Allergy 10 mg PO DAILY 11/05/24 History Relief (loratadine)) cyanocobalamin (vitamin B-12) 1,000 mcg PO QDAY 11/05/24 History 1,000 mcg capsule vits no.126-ferrous fum tab PO 10/30/2411/05 History 28 mg iron-folic acid 800 mcg tablet (Classic ) Last Menstrual Period: 08/08/24 Zika: Zika virus screening: Negative : Yes Have you fallen in the past year?: No PFSH PFSH Medical History (Updated 11/05/24 @ 11:45 by Aylin Rojo, RN) Seasonal allergies Surgical History Status post cardiac surgery Family History Aunt Cancer Grandfather Myocardial infarction Heart disease Grandfather Heart disease Brain aneurysm Social History (Updated 10/30/24 @ 08:23 by Eliana Mckeon RN) adopted: No household members: spouse service: No current occupational status: unemployed current occupation: [employer] current occupational exposures/hazards: No pets and animals: No history of recent travel: No sexually active: Yes Smoking Status: Never smoker second hand exposure: No alcohol intake: never substance use type: does not use well-balanced diet: daily or most days caffeine: Yes Type: coffee Number of servings: 1 eating out: 1-3 times/week during the past year weight has: remained stable what type of physical activity do you participate in: none brennen/rastafari: Scientology seatbelt use: always do you feel safe at home: Yes additional social history: : [employer] -> changing to [employer] working History 1 Elective abortions 0 Hx Para 0 Spontaneous abortions 0 Hx # Term Pregnancies Ectopic pregnancies Hx # Pregnancies Multiple births # of living children HPI *NEW* NOB CHI 12w5d, LLUVIA 05/15 Details: ASAEL LEÓN is a 34 year old who presents for New OB visit. OB Visit [facility] Calculator Estimated Delivery Date Method Current WG Current Estimate 05/15/25 LMP (Certain) 12w 5d Estimated Due Date: 05/15/25 Expected Delivery Route/Plan Labor Preferences- CB/BF classes: [] labor support person: [] labor intervention preferences: [] pain management options preferred: [] cut cord/dad catch: [] : [] PP control planned: [] discussed possible routes of delivery and associated risks: [] special requests: [] Specific Issue/Plans Covid status: [] Flu vaccine: [] Tdap vaccine: [] Rhogam: [] LARC form signed: [] Problem list reviewed and updated with the most current plan of care details and appropriate ordersplaced. Relevant counseling for the gestational age provided. Continue routine care and follow up unless otherwise noted in visit notes/problem list details Initial Weight: 143 lb Date -?-?-?-?-?-?-?-?-?-?-?-?- EGA Weight BP Urine Prot -?-?-?-?-?-?-?-?-?-?-?-?- Glucose FHR FuHt Pres Dilation -?-?-?-?-?-?-?-?-?-?-?-?- Effaced St Visit Note 11/05/24 -?-?-?-?-?-?-?-?-?-?-?-?- 12w 5d 143 lb (+0 oz) 117/65 -?-?-?-?-?-?-?-?-?-?-?-?- 164 -?-?-?-?-?-?-?-?-?-?-?-?- KW CRL 6.69 cm c ons with LMP. 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) Infection History: Live with someone with TB or Exposed to TB: No, Patient or Partner has history of Genital Herpes: No, Rash or Viral illness since last mentrual period: No, Prior GBS-Infected child: No, History of STD: No, HIV Infection: No, History of Hepatitis: No, Recent travel outside of [place]: No, Concern for hepatitis exposure: No, Varicella immune: Yes (Had chicken pox ) and Covid Vaccinated: No Medical History Medical History: Positive: Seasonal allergies and Operations/hospitalizations (see surg hx) and Negative: Diabetes, Hypertension, Heart disease, Auto-immune disorder, Kidney disease/UTI, Neurologic/epilepsy, Psychiatric, Depression/ depression, Hepatitis/liver disease, Varicosities/phlebit is, Thyroid dysfunction, Trauma/domestic violence, History of blood transfusions, D (Rh) Sensitized, Pulmonary (e.g.,TB,Asthma), Drug/latex allergies/reactions, Breast, Die Maker Stamping surgery, Anesthetic complications, History of abnormal pap, Uterine anomaly/newton, Infertility, Anti-retroviral treatment, Relevant family history and Other ACOG First Trimester First Trimester: Desire for , Alcohol, Tobacco Cessation, Illicit/Recreational Drug/Substance Use, Intimate Partner Violence, Barriers to care, Unstable Housing, Communication Barriers, Environmental/Work Hazards, Anticipated Course of Care, Toxoplasmosis Precations, Use of Any med ications, Sexual activity, Exercise, Dental Care, Sauna/Hot tub use, Seat Belt use, Childbirth classes/Hospital facilities, , Travel, Indications for Ultrasound and Screening for Aneuploidy Second Trimester Second Trimester: Signs and Symptoms of Labor, Selecting a care provider, Reproductive Life Planning & Contreception, Care Planning, Depression/Anxiety and Intimate Partner Violence; Discussed Tobacco Cessation Third Trimester Third Trimester: Pain Management Plans, Labor support person(s), Immediate Larc, Signs and Symptoms of Preeclampsia, Feeding Yes , [place] Education and Family Medical Leave or Disability Forms ROS Const Reports system reviewed and no additional complaints, except as documented, Denies fatigue, Denies headache(s) and Denies lethargy ENT Denies headache(s) Card Reports system reviewed and no additional complaints, except as documented Resp Reports system reviewed and no additional complaints, except as documented GI Reports system reviewed and no additional complaints, except as documented, Denies abdominal pain, Denies constipation, Denies cramping, Denies diarrhea and Denies dyspepsia Reports system reviewed and no additional complaints, except as documented, Denies abnormal vaginalbleeding, Denies difficulty voiding, Denies dyspareunia and Denies dysuria Musc Reports system reviewed and no additional complaints, except as documented Skin/Breast Reports system reviewed and no additional complaints, except as documented Neuro Yes system reviewed and no additional complaints, except as documented and No headache(s) Psych Reports system reviewed and no additional complaints, except as documented, Denies anhedonia and Denies anxiety Endo Reports system reviewed and no additional complaints, except as documented and Denies fatigue Exam Const General: cooperative, healthy appearing and comfortable Neck Neck: normal visual inspection and full ROM Chest Chest palpation & inspection: normal inspection of the chest Breast inspection: normal inspection of the breasts and normal inspection of the axillae Breast palpation: normal palpation of the breasts and normal palpation of the axillae Resp Effort & Inspection: normal respiratory effort and able to speak in complete sentences GI Inspection: normal to inspection Palpation: soft External Female Exam: normal external appearance and normal appearance of the urethra Urethra: normal appearance of the urethra Skin General: no rashes or lesions noted Neuro General: patient alert, patient awake and patient oriented x3 Extrem General: normal to inspection and full ROM Psych Appearance: grossly normal and well kempt Mental Status: mental status grossly normal Mood: congruent mood Affect: normal affect Speech and Movement: speech and movement normal Thought Process: normal Thought Content: normal Coding Level of Care Code OB Routine Diagnoses AMA (advanced maternal age) primigravida 35+ O09.519 Supervision of high-risk O09.90 12 weeks gestation of Z3A.12 Weeks of gestation: 12 weeks AVM (arteriovenous malformation) brain Q28.2 Assessment and Plan Assessment and Plan (1) AMA (advanced maternal age) primigravida 35+: Status: Acute (2) Supervision of high-risk : Status: Acute Comment: , LLUVIA 05/15/25, : Boy (3) : Status: Acute Qualifiers: Weeks of gestation: 12 weeks Qualified Code(s): Z3A.12 - 12 weeks gestation of Comment: Discussed genetic/carrier testing - undecided (4) AVM (arteriovenous malformation) brain: Status: Acute Comment: dx 2015 Comments Comments: Patient oriented to practice and discussed care expectations and screenings. ACOG book offered to patient. Discussed routine and specially indicated labs if needed- patient consents to testing. See problem list details for plan information. Optional screening including maternal carrier screenings, neural tube defect screening, genetic screening options including quad screen, nuchal translucency, sequential screening, and NIPT screening offered to patient and patient chose: declines Clinical Quality Measures Falls Risk Screening/Assistive Devices Have you fallen in the past year?: No 11/05/24 1218 s CNM> Date _ Jennifer Ramirez CNM Cosigner Signature: Date (if applicable) CC: ~ [facility]07-03-2025 Note* Exam Date Time Procedure Performing Provider Status 08/13/24 12:14 PM XR Hysterosalpingography LAKSHMI FORTE DO; Auth (Verified) [id number] ORIGINAL EXAMINATION: HYSTEROSALPINGOGRAM08/13/2024 12:15 pm COMPARISON: None available HISTORY: ORDERING SYSTEM PROVIDED HISTORY: Reason for Exam: INFERTILITY FINDINGS: A catheter was placed through the cervical os and contrast material was instilled into the uterus by the railway signalling engineer. Spot films were obtained by the radiologist. [...] 08/13/2024 1:12:18 PM Ordering Provider: EMELINA CARDENAS [facility]03-28-2025 Radiology Diagnostic study note [facility] Imaging Services [address] [place], [place] [id number] Breast Limited Unilateral MR#: [id number] Acct: [id number] Name: ASAEL LEÓN Rep #: [id number] : 1990 F 33 From: Gilma Vázquez MD PCP: CHICA Linn Status: [facility] CLI Study:Breast Limited Unilateral Date of Exam: 05/08/24 Exam# [id number] Ordering Dr: Momo Donahue NP ENVIRONMENTAL WEB CRAWLER-C EXAM: DIAG MAMM W/CAD, BILAT; BILAT BRST [...] the lateral left breast at the area ofpatient's palpable concern. There are no suspicious sonographic [...] be mailed to the patient. Reading Location: [id number] CC: ENVIRONMENTAL WEB CRAWLER-C Momo Donahue ~ Purifying Plant Operator: Signed [facility]09-09-2024 Evaluation + Plan note Future Scheduled Tests Laboratory* Complete Blood Count 10/21/23 * Lipid Profile 10/21/23 * Complete Metabolic Panel 10/21/23 [facility] Evaluation + Plan note Future Appointments Appointment Date:07/29/2024 10:45:00 AM Scheduled Provider:EMELINA CARDENAS MD Location:[facility] Appointment Type:[facility] Diagnostic Tests Pending * Rapid Plasma Reagin Test 07/01/24 * Rubella Antibody 07/01/24 Future Scheduled Tests Laboratory* Complete Blood Count 10/21/23 * Lipid Profile 10/21/23 * Complete Metabolic Panel 10/21/23 [facility] Evaluation + Plan note Future Appointments Appointment Date:07/29/2024 10:45:00 AM Scheduled Provider:EMELINA CARDENAS MD Location:[facility] Appointment Type:[facility] Diagnostic Tests Pending * HPV Screen, DNA Probe 07/01/24 Future Scheduled Tests Laboratory* Complete Blood Count 10/21/23 * Lipid Profile 10/21/23 * Complete Metabolic Panel 10/21/23 [facility] Evaluation noteNo assessment information available [facility] Work Phone: Evalunduab note* Diagnosis Onset Date Resolution Status Admit Date AMA (advanced maternal age) primigravida 35+ acute November 05, 2024 11:39am AVM (arteriovenous malformation) brain acute November 052024 11:39am acute October 11:39am Supervision of high-risk acute November 05, 2024 11:39am [facility] Work Phone: Hospital course Narrative No data available for this section [facility] Hospital Discharge instructions No data available for this section [facility] Progress note No data available for this section [facility] Progress note Author Jennifer Ramirez [facility] Note Date/Time November 05, 2024 12:18pm [facility] [address], [address] [place] [address] OFFICE VISIT Date of Service: 11/05/24 MR#: [id number] Acct: [id number] Name: ASAEL LEÓN Rep #: [id number] : 1990 Provider: DARIUS Ramirez Age/Sex: 34/F Location: [facility] Status: Signed Intake Vital Signs 11/08/15 19:37 11/05/24 11:44 11/05/24 11:47 Height 5 ft 1 in 5 ft 1 in 5 ft 1 in Weight: 143 lb BMI 27.0 BP 117/65 Intake Visit Reasons: *NEW* NOB CHI 12w5d, LLUVIA 4/4 Fundraising Director Required: No Is patient in pain?: No Allergies No Known Allergies Allergy (Verified 11/05/24 11:45) Medications ?Medication ?Instructions ?Recorded ?Confirmed ?Type loratadine 10 mg tablet (Allergy 10 mg PO DAILY 11/05/24 History Relief (loratadine)) cyanocobalamin (vitamin B-12) 1,000 mcg PO QDAY 11/05/24 History 1,000 mcg capsule vits no.126-ferrous fum tab PO 10/30/2411/05 History 28 mg iron-folic acid 800 mcg tablet (Classic ) Last Menstrual Period: 08/08/24 Zika: Zika virus screening: Negative : Yes Have you fallen in the past year?: No PFSH PFSH Medical History (Updated 11/05/24 @ 11:45 by Aylin Rojo RN) Seasonal allergies Surgical History Status post cardiac surgery Family History Aunt Cancer Grandfather Myocardial infarction Heart disease Grandfather Heart disease Brain aneurysm Social History (Updated 10/30/24 @ 08:23 by Eliana Mckeon RN) adopted: No household members: spouse service: No current occupational status: unemployed current occupation: [employer] current occupational exposures/hazards: No pets and animals: No history of recent travel: No sexually active: Yes Smoking Status: Never smoker second hand exposure: No alcohol intake: never substance use type: does not use well-balanced diet: daily or most days caffeine: Yes Type: coffee Number of servings: 1 eating out: 1-3 times/week during the past year weight has: remained stable what type of physical activity do you participate in: none brennen/rastafari: Scientology seatbelt use: always do you feel safe at home: Yes additional social history: : Boy [place] [employer] -> changing to [employer] working History 1 Elective abortions 0 Hx Para 0 Spontaneous abortions 0 Hx # Term Pregnancies Ectopic pregnancies Hx # Pregnancies Multiple births # of living children HPI *NEW* NOB CHI 12w5d, LLUVIA 05/15 Details: ASAEL LEÓN is a 34 year old who presents for New OB visit. OB Visit [facility] Calculator Estimated Delivery Date Method Current WG Current Estimate 05/15/25 LMP (Certain) 12w 5d Estimated Due Date: 05/15/25 Expected Delivery Route/Plan Labor Preferences- CB/BF classes: [] labor support person: [] labor intervention preferences: [] pain management options preferred: [] cut cord/dad catch: [] : [] PP control planned: [] discussed possible routes of delivery and associated risks: [] special requests: [] Specific Issue/Plans Covid status: [] Flu vaccine: [] Tdap vaccine: [] Rhogam: [] LARC form signed: [] Problem list reviewed and updated with the most current plan of care details and appropriate orders placed. Relevant counseling for the gestational age provided. Continue routine care and follow up unless otherwise noted in visit notes/problem list details Initial Weight: 143 lb Date -?-?-?-?-?-?-?-?-?-?-?-?- EGA Weight BP Urine Prot -?-?-?-?-?-?-?-?-?-?-?-?- Glucose FHR FuHt Pres Dilation -?-?-?-?-?-?-?-?-?-?-?-?- Effaced St Visit Note 11/05/24 -?-?-?-?-?-?-?-?-?-?-?-?- 12w 5d 143 lb (+0 oz) 117/65 -?-?-?-?-?-?-?-?-?-?-?-?- 164 -?-?-?-?-?-?-?-?-?-?-?-?- KW CRL 6.69 cm c ons with LMP. 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) Infection History: Live with someone with TB or Exposed to TB: No, Patient or Partner has history of Genital Herpes: No, Rash or Viral illness since last mentrual period: No, Prior GBS-Infected child: No, History of STD: No, HIV Infection: No, History of Hepatitis: No, Recent travel outside of [place]: No, Concern for hepatitis exposure: No, Varicella immune: Yes (Had chicken pox ) and Covid Vaccinated: No Medical History Medical History: Positive: Seasonal allergies and Operations/hospitalizations (see surg hx) and Negative: Diabetes, Hypertension, Heart disease, Auto-immune disorder, Kidney disease/UTI, Neurologic/epilepsy, Psychiatric, Depression/ depression, Hepatitis/liver disease, Varicosities/phlebitis, Thyroid dysfunction, Trauma/domestic violence, History of blood transfusions, D (Rh) Sensitized, Pulmonary (e.g.,TB,Asthma), Drug/latex allergies/reactions, Breast, Die Maker Stamping surgery, Anesthetic complications, History of abnormal pap, Uterine anomaly/newton, Infertility, Anti-retroviral treatment, Relevant family history and Other ACOG First Trimester First Trimester: Desire for , Alcohol, Tobacco Cessation, Illicit/Recreational Drug/Substance Use, Intimate Partner Violence, Barriers to care, Unstable Housing, Communication Barriers, Environmental/Work Hazards, Anticipated Course of Care, Toxoplasmosis Precations, Use of Any medications, Sexual activity, Exercise, Dental Care, Sauna/Hot tub use, Seat Belt use, Childbirth classes/Hospital facilities, , Travel, Indications for Ultrasound and Screening for Aneuploidy Second Trimester Second Trimester: Signs and Symptoms of Labor, Selecting a care provider, Reproductive Life Planning & Contreception, Care Planning, Depression/Anxiety and Intimate Partner Violence; Discussed Tobacco Cessation Third Trimester Third Trimester: Pain Management Plans, Labor support person(s), Immediate Larc, Signs and Symptoms of Preeclampsia, Feeding Yes , [place] Education and Family Medical Leave or Disability Forms ROS Const Reports system reviewed and no additional complaints, except as documented, Denies fatigue, Denies headache(s) and Denies lethargy ENT Denies headache(s) Card Reports system reviewed and no additional complaints, except as documented Resp Reports system reviewed and no additional complaints, except as documented GI Reports system reviewed and no additional complaints, except as documented, Denies abdominal pain, Denies constipation, Denies cramping, Denies diarrhea and Denies dyspepsia Reports system reviewed and no additional complaints, except as documented, Denies abnormal vaginal bleeding, Denies difficulty voiding, Denies dyspareunia and Denies dysuria Musc Reports system reviewed and no additional complaints, except as documented Skin/Breast Reports system reviewed and no additional complaints, except as documented Neuro Yes system reviewed and no additional complaints, except as documented and No headache(s) Psych Reports system reviewed and no additional complaints, except as documented, Denies anhedonia and Denies anxiety Endo Reports system reviewed and no additional complaints, except as documented and Denies fatigue Exam Const General: cooperative, healthy appearing and comfortable Neck Neck: normal visual inspection and full ROM Chest Chest palpation & inspection: normal inspection of the chest Breast inspection: normal inspection of the breasts and normal inspection of the axillae Breast palpation: normal palpation of the breasts and normal palpation of the axillae Resp Effort & Inspection: normal respiratory effort and able to speak in complete sentences GI Inspection: normal to inspection Palpation: soft External Female Exam: normal external appearance and normal appearance of the urethra Urethra: normal appearance of the urethra Skin General: no rashes or lesions noted Neuro General: patient alert, patient awake and patient oriented x3 Extrem General: normal to inspection and full ROM Psych Appearance: grossly normal and well kempt Mental Status: mental status grossly normal Mood: congruent mood Affect: normal affect Speech and Movement: speech and movement normal Thought Process: normal Thought Content: normal Coding Level of Care Code OB Routine Diagnoses AMA (advanced maternal age) primigravida 35+ O09.519 Supervision of high-risk O09.90 12 weeks gestation of Z3A.12 Weeks of gestation: 12 weeks AVM (arteriovenous malformation) brain Q28.2 Assessment and Plan Assessment and Plan (1) AMA (advanced maternal age) primigravida 35+: Status: Acute (2) Supervision of high-risk : Status: Acute Comment: , LLUVIA 05/15/25, : Boy (3) : Status: Acute Qualifiers: Weeks of gestation: 12 weeks Qualified Code(s): Z3A.12 - 12 weeks gestation of Comment: Discussed genetic/carrier testing - undecided (4) AVM (arteriovenous malformation) brain: Status: Acute Comment: dx 2016 Comments Comments: Patient oriented to practice and discussed care expectations and screenings. ACOG book offered to patient. Discussed routine and specially indicated labs if needed- patient consents to testing. See problem list details for plan information. Optional screening including maternal carrier screenings, neural tube defect screening, genetic screening options including quad screen, nuchal translucency, sequential screening, and NIPT screening offered to patient and patient chose: declines Clinical Quality Measures Falls Risk Screening/Assistive Devices Have you fallen in the past year?: No 11/05/24 1218 <Electronically signed by Jennifer garces CNM> Date _ Jennifer Ramirez CNM Cosigner Signature: Date (if applicable) CC: ~ [facility] Work Phone: Reason for referral (narrative)No reason for referral information availableWCenterville Work Phone: Summary Purpose Family History No Family History Records Found Relationship Condition Age at Onset Recorded Date/T jason aunt Malignant neoplasm Unknown grandfather Myocardial infarction Unknown Cardiac disease Unknown grandfather Cardiac disease Unknown Cerebral aneurysm Unknown Advance Directives No Advanced Directives Records FoundNo Advanced Directives Records FoundNo Advanced Directives Records FoundNo Advanced Directives Records Found Chief Complaint and Reason for Visit Chief Complaint Admit Date MULTIPLE LUMPS May 08, 2024 8:5 8am Chief Complaint Admit Date Personal history of (corrected) congenit al malform September 21, 2024 8:03am Chief Complaint Admit Date Personal history of (corrected) congenit al malform September 21, 2024 8:03am Amb Documentation October 30, 2024 8:13am *NEW* NOB [facility] 12w5d, LLUVIA 05/15October 132024 11:39am Reason for Visit Admit Date AMA (advanced maternal age) primigravida 35+ November 05, 2024 11:39am AVM (arteriovenous malformation) brain S eptember 2024 11:39am November 05, 2024 11:39am Supervision of high-risk [place] daveyasya 2024 11:39am Additional Source Comments INFORMATION SOURCE (unrecogn ized section and content) DATE CREATED AUTHOR 08/06/2017 [facility] DATE CREATED AUTHOR AUTHOR'S ORGANIZ ATION 09/02/2021 [facility] DATE CREATED AUTHOR AUTHOR'S ORGANIZ ATION 08/16/2024 [facility] DATE CREATED AUTHOR AUTHOR'S ORGANIZ ATION 12/20/2024 [facility] Care Teams (unrecognized sec tion and content) Team Status: Active Member Role Status Dates Momo Donahue NP, ENVIRONMENTAL WEB CRAWLER-C Primary Care Provider Active Team Status: Inactive Member Role Status Dates Momo Donahue NP, ENVIRONMENTAL WEB CRAWLER-C Primary Care Provider Active Start: May 01, 2024 End: May 01, 2024 Momo Donahue NP, ENVIRONMENTAL WEB CRAWLER-C Attending Provider Ac tive Start: May 01, 2024 End: May 01, 2024 Momo Donahue NP, ENVIRONMENTAL WEB CRAWLER-C Referring Provider Ac tive Start: May 01, 2024 End: May 01, 2024 Team Status: Active Member Role Status Dates Momo Donahue NP, ENVIRONMENTAL WEB CRAWLER-C Primary Care Provider Active Start: May 08, 2024 Momo Donahue NP, ENVIRONMENTAL WEB CRAWLER-C Attending Provider Ac tive Start: May 08, 2024 Momo Donahue NP, ENVIRONMENTAL WEB CRAWLER-C Referring Provider Ac tive Start: May 08, 2024 Team Status: Inactive Member Role Status Dates Momo Donahue NP, ENVIRONMENTAL WEB CRAWLER-C Primary Care Provider Active Start: May 08, 2024 End: May 08, 2024 Momo Donahue NP, ENVIRONMENTAL WEB CRAWLER-C Attending Provider Ac tive Start: May 08, 2024 End: May 08, 2024 Momo Donahue NP, ENVIRONMENTAL WEB CRAWLER-C Referring Provider Ac tive Start: May 08, 2024 End: May 08, 2024 Team Status: Active Member Role/Relationship Status Dates Momo Donahue NP, ENVIRONMENTAL WEB CRAWLER-C Primary Care Provider Active Team Status: Inactive Member Role/Relationship Status Dates Momo Donahue ENVIRONMENTAL WEB CRAWLER, ENVIRONMENTAL WEB CRAWLER-C Primary Care Provider Active Start: September End: September 21, 2024 Dr. Emelina Cardenas MD Attending Provider Active Start: September 21, 2024 End: September 21, 2024 Dr. Emelina Cardenas MD Referring Provider Active Start: September 21, 2024 End: September 21, 2024 Team Status: Active Member Role/Relationship Status Dates Momo Donahue ENVIRONMENTAL WEB CRAWLER, ENVIRONMENTAL WEB CRAWLER-C Primary Care Provider Active Start: September Dr. Igor Haines MD Attending Provider Active S tart: September 21, 2024 Team Status: Active Member Role/Relationship Status Dates Momo Donahue ENVIRONMENTAL WEB CRAWLER, ENVIRONMENTAL WEB CRAWLER-C Primary care physicia n Active Team Status: Inactive Member Role/Relationship Status Dates Momo Donahue ENVIRONMENTAL WEB CRAWLER, ENVIRONMENTAL WEB CRAWLER-C Primary care physician Active Start: September End: September 21, 2024 Dr. Emelina Cardenas MD Attending physician Active Start: September 21, 2024 End: September 21, 2024 Dr. Emelina Cardenas MD Referring Provider Active Start: September 21, 2024 End: September 21, 2024 Team Status: Active Member Role/Relationship Status Dates Momo Donahue ENVIRONMENTAL WEB CRAWLER, ENVIRONMENTAL WEB CRAWLER-C Primary care physician Active Start: September Dr. Igor Haines MD Attending physician Active Start: September 21, 2024 Team Status: Active Member Role/Relationship Status Dates Momo Donahue ENVIRONMENTAL WEB CRAWLER, ENVIRONMENTAL WEB CRAWLER-C Primary care physician Active Start: October 30, 2024 Eliana Mckeon RN Attending physician Active S tart: October 30, 2024 Team Status: Inactive Member Role/Relationship Status Dates Momo Donahue ENVIRONMENTAL WEB CRAWLER, ENVIRONMENTAL WEB CRAWLER-C Primary care physician Active Start: November 05, 2024 End: November 05, 2024 Momo Donahue ENVIRONMENTAL WEB CRAWLER, ENVIRONMENTAL WEB CRAWLER-C Referring Provider Active Start: October End: November 05, 2024 Jennifer Ramirez CNM Attending physician Active Start: November 05, 2024 End: November 05, 2024 Team Status: Inactive Member Role/Relationship Status Dates Momo Donahue ENVIRONMENTAL WEB CRAWLER, ENVIRONMENTAL WEB CRAWLER-C Primary care physician Active Start: November 05, 2024 End: November 05, 2024 Jennifer Ramirez CNM Attending physician Active Start: November 05, 2024 End: November 05, 2024 Jennifer Ramirez CNM Referring Provider Active S tart: November 05, 2024 End: November 05, 2024 Goals (unrecognized section and content) Type Care Experience Labor Preferences-CB /BF classes: []labor support person: []labor intervention preferences: []pain management options preferred: []cut cord/dad catch: []: []PP control planned: []discussed possible routes of delivery and associated risks: []special requests: [] FOR RECORDS PERTAINING TO PATIENTS WHO ARE [...] BE BASED ON THE PRIMARY CLINICAL RECORDS. [employer] provides no warranty or guarantee of the accuracy or completeness of information in this document.
== END | disposition home or self-care (01) ==
LOC: OPUS 08:26
PROVIDERS: PCP Nurse Practitioner Family; Referring Provider Obstetrics & Gynecology; Visit Provider Obstetrics & Gynecology
DX: O09.92 Supervision of high risk pregnancy, unspecified, second trimester (principal); Z3A.21 21 weeks gestation of pregnancy
CPT/HCPCS: 76805

== ENCOUNTER → 2025-01-22 | Outpatient (CLI) | payer SELFPAY ==
--- NOTE | 2025-01-22 15:37 | US_ITS ---
PROCEDURE: OB LIMITED (NO BIOMETRICS) 01/22/2025 REASON FOR EXAM: ADDITIONAL SPINAL VIEWS FOLLOWING ANANTOMY SCAN TECHNIQUE: Procedure Code: USOBL Modality: US Procedure: OB LIMITED (NO BIOMETRICS) FINDINGS Cephalic position with cardiac activity of 155 bpm. Cervical length is 3.6 cm. Maximum vertical pocket is 5.8 cm. Placenta is anterior position with grade 1. spine appears within normal limits. US/OB Limited (No Biometrics) IMPRESSION: spine appears within normal limits. Reading Location: [id number]
--- OUTSIDE RECORDS SUMMARY | 2025-01-22 15:52 | XMS RPT_ITS | CCD ---
Author Organization [facility] Inform ion Partnership [facility] Care Team Providers Care Fireman Name Role Phone Lab Institutional, [facility] Attending Unavailable Lab Institutional, [facility] Referring Unavailable Terrell NURSE SPECIALIST-C, Momo Peña Primary Care Provi delta Godfrey NURSE SPECIALIST-C, Momo Peña Attending Provider Godfrey NURSE SPECIALIST-C, Momo Peña Referring Provider GODFREY MASTER RIGGER - MACHINE II ENGRAVER, MOMO Quevedo Primary Care Phys ician RONALD FONTENOT, EMELINA Attending Unavailable GODFERY MASTER RIGGER - MACHINE II ENGRAVER, MOMO Quevedo Primary Care U re CARDENAS MD, EMELINA Attending Unavailable GODFREY MASTER RIGGER - MACHINE II ENGRAVER, MOMO Emy Primary Care U navailable GODFREY MASTER RIGGER - MACHINE II ENGRAVER, MOOM D Primary Care U re CARDENAS MD, EMELINA Attending Unavailable RONALD FONTENOT, EMELINA Attending Unavailable GODFREY MASTER RIGGER - MACHINE II ENGRAVER, MOMO Emy Primary Care U navailable GODFREY MASTER RIGGER - MACHINE II ENGRAVER, MOMO Emy Primary Care U re CARDENAS MD, EMELINA Attending Unavailable Godfrey NURSE SPECIALIST-C, Momo Peña Primary Care Provi delta Dr. Emelina Cardenas MD Attending Provider Dr. Emelina Cardenas MD Referring Provider Dr. Igor Haines MD Attending Provider Terrell NURSE SPECIALIST-C, Momo Peañ Primary Care Physi calli Dr. Emelina Cardenas MD Attending Physician Dr. Igor Haines MD Attending Physician Eliana Mckeon RN Attending Physician Unavailab mallika Donahue NURSE SPECIALIST-C, Momo Peña Referring Provider Jennifer Ramirez CNM Attending Physician Jennifer Ramirez CNM Referring Provider Jennifer Ramirez Attending Unavailable Terrell, Momo Peña Primary Care Unavail able Godfrey, Momo Peña Referring Unavail able Terrell, Momo Peña Primary Care Unavail able Jennifer Ramirez Attending Unavailable Jennifer Ramirez Referring Unavailable Godfrey, Momo Peña Primary Care Unavail able Colbye Verena Perdomo Attending Unavailabl e Terrell, Momo Peña Primary Care Unavail able Terrell, Momo Peña Attending Unavail able Terrell, Momo Peña Referring Unavail able Terrell, Momo Peña Attending Unavail able Terrell, Momo Peña Primary Care Unavail able Terrell, Momo Peña Referring Unavail able Verena Rashid Attending Unavailabl e Vande VeldeVerena Referring Unavailabl e Terrell, Momo Peña Primary Care Unavail able Terrell, Momo Peña Primary Care Unavail able Verena Rashid Attending Unavailabl e Terrell, Momo Peña Referring Unavail able Igor Haines Attending Unavailable Godfrey, Momo Peña Primary Care Unavail able Godfrey, Momo Posadanis Primary Care Unavail able Eliana Mckeon Attending Unavailable Godfrey, Momo Peña Primary Care Unavail able Terrell, Momo Peña Attending Unavail able Terrell, Momo Peña Referring Unavail able Godfrey, Momo Peña Primary Care Unavail able Godfrey, Momo Peña Attending Unavail able Godfrey, Momo Peña Referring Unavail able Godfrey, Momo Peña Primary Care Unavail able Emelina Cardenas Attending Unavailable RonaldEmelina Referring Unavailable Godfrey, Momo Peña Primary Care Unavail able Godfrey, Momo Peña Attending Unavail able Terrell, Momo Peña Referring Unavail able Medications Current [...] Daily, # 5 tab(s), 0 Refill(s), Pharmacy: [email or web address], Infertility management, 157, cm, 07/29/24 10:52:00 EDT, Height, kg, 07/29/24 10:52:00 EDT, Dosing Weight Start Date: 08/11/24 Stop Date: 08/16/24 Status: Ordered Quantity: 5.0 Unit: tab(s) Repeat number: 1 Indications: Encounter for procreative management, unspecified; loratadine 10 mg oral tablet (10 sources) Start: 11-08-2015 take 1 tablet by mouth once daily Vit No.[id number] (Classic ) 28 mg iron- 800 mcg tablet (2 sources) Start: 10-30-2024 Prenate Elite oral tablet (5 sources) Start: 07-01-2024 take 1 tablet by mouth once daily Prenate Elite oral tablet Dose = 1 tab(s), Oral, Daily, # 90 tab(s), 3 Refill(s), Pharmacy: [email or web address], Infertility management Screening for malignant neoplasm [...] Daily, # 90 tab(s), 3 Refill(s), Pharmacy: [email or web address], Infertility management Screening for malignant neoplasm of cervix, 157, cm, 07/01/24 10:10:00 EDT, Height, kg, 07/01/24 10:10:00 EDT, Dosing Weight Start Date: 07/01/24 Status: Ordered Quantity: 90.0 Unit: tab(s) Repeat number: 4 Indications: Encounter for screening for malignant neoplasm of cervix; Encounter for procreative management, unspecified; vitamin b12 1 mg oral capsule (2 sources) Vitamin B12 Start: 10-30-2024 take 1 capsule by [facility] once daily Completed/Discontinued Medications Medication [...] Absolute Lymph 1.46 X10 3/uL Normal 0.83-4.51 [facility] Comment on above: Performed By: #### L 3890.6301, L100.0100, L509.8002, BTS, L3890.6102, L3890.6006, L509.4006 #### [facility] Laboratory [address] [place], [place], [id number] Absolute Neut 5.7 X10 3/uL Normal 2.0-7.7 [facility] Comment on above: Performed By: #### L 3890.6301, L100.0100, L509.8002, BTS, L3890.6102, L3890.6006, L509.4006 #### [facility] Laboratory [address] [place], [address] Basophils/100 WBC (Bld) 0.3 % Normal 0-1 [facility] Comment on above: Performed By: #### L 3890.6301, L100.0100, L509.8002, BTS, L3890.6102, L3890.6006, L509.4006 #### [facility] Laboratory [address] [place], [address] Eosinophils/100 WBC (Bld) 1.3 % Normal 0-5 [facility] Comment on above: Performed By: #### L 3890.6301, L100.0100, L509.8002, BTS, L3890.6102, L3890.6006, L509.4006 #### [facility] Laboratory [address] [place], [address] Erythrocyte distribution width (RBC) [Ratio] 13.2 % Normal 11.6-14.6 [facility] Comment on above: Performed By: #### L 3890.6301, L100.0100, L509.8002, BTS, L3890.6102, L3890.6006, L509.4006 #### [facility] Laboratory [address] [place], [address] Hematocrit (Bld) [Volume fraction] 35.2 % Low 37-47 [facility] Comment on above: Performed By: #### L 3890.6301, L100.0100, L509.8002, BTS, L3890.6102, L3890.6006, L509.4006 #### [facility] Laboratory [address] [place], [address] Hemoglobin (Bld) [Mass/Vol] 12.2 g/dL Normal 12.0-15.0 [facility] Comment on above: Performed By: #### L 3890.6301, L100.0100, L509.8002, BTS, L3890.6102, L3890.6006, L509.4006 #### [facility] Laboratory [address] [place], [address] IG% 0.400 Normal 0.0-0.9 [facility] Comment on above: Result Comment: IG% - Immature Granulocytes (promyelocytes, myelocytes and metamyelocytes) > 1% indicates that a LEFT SHIFT is Present. Performed By: #### L 3890.6301, L100.0100, L509.8002, BTS, L3890.6102, L3890.6006, L509.4006 #### [facility] Laboratory [address] [place], [address] Lymphocytes/100 WBC (Bld) 18.8 % Low 19-41 [facility] Comment on above: Performed By: #### L 3890.6301, L100.0100, L509.8002, BTS, L3890.6102, L3890.6006, L509.4006 #### [facility] Laboratory [address] [place], [address] MCH (RBC) [Entitic mass] 31.0 pg Normal 27.0-32.0 [facility] Comment on above: Performed By: #### L 3890.6301, L100.0100, L509.8002, BTS, L3890.6102, L3890.6006, L509.4006 #### [facility] Laboratory [address] [place], [address] MCHC (RBC) [Mass/Vol] 34.7 g/dL Normal 32-36 [facility] Comment on above: Performed By: #### L 3890.6301, L100.0100, L509.8002, BTS, L3890.6102, L3890.6006, L509.4006 #### [facility] Laboratory [address] [place], [address] MCV (RBC) [Entitic vol] 89.6 fL Normal 81-99 [facility] Comment on above: Performed By: #### L 3890.6301, L100.0100, L509.8002, BTS, L3890.6102, L3890.6006, L509.4006 #### [facility] Laboratory [address] [place], [address] Monocytes/100 WBC (Bld) 6.2 % Normal 0-10 [facility] Comment on above: Performed By: #### L 3890.6301, L100.0100, L509.8002, BTS, L3890.6102, L3890.6006, L509.4006 #### [facility] Laboratory [address] [place], [address] Neutrophils/100 WBC (Bld) 73.0 % High 47-70 [facility] Comment on above: Performed By: #### L 3890.6301, L100.0100, L509.8002, BTS, L3890.6102, L3890.6006, L509.4006 #### [facility] Laboratory [address] [place], [address] Nucleated RBC (Bld) [#/Vol] 0 10*3/uL Normal 0-5 [facility] Comment on above: Performed By: #### L 3890.6301, L100.0100, L509.8002, BTS, L3890.6102, L3890.6006, L509.4006 #### [facility] Laboratory [address] [place], [address] Platelet mean volume (Bld) [Entitic vol] 10.2 fL Normal 6.2-12.0 [facility] Comment on above: Performed By: #### L 3890.6301, L100.0100, L509.8002, BTS, L3890.6102, L3890.6006, L509.4006 #### [facility] Laboratory [address] [place], [address] Platelets (Bld) [#/Vol] 213 10*3/uL Normal 150-450 [facility] Comment on above: Performed By: #### L 3890.6301, L100.0100, L509.8002, BTS, L3890.6102, L3890.6006, L509.4006 #### [facility] Laboratory [address] [place], [address] RBC (Bld) [#/Vol] 3.93 10*6/uL Low 4.2-5.4 [facility] Comment on above: Performed By: #### L 3890.6301, L100.0100, L509.8002, BTS, L3890.6102, L3890.6006, L509.4006 #### [facility] Laboratory [address] [place], [address] RDW SD 43.8 fl Normal 35.1-43.9 [facility] Comment on above: Performed By: #### L 3890.6301, L100.0100, L509.8002, BTS, L3890.6102, L3890.6006, L509.4006 #### [facility] Laboratory [address] [place], [address] WBC (Bld) [#/Vol] 7.8 10*3/uL Normal 4.4-11.0 [facility] Comment on above: Performed By: #### L 3890.6301, L100.0100, L509.8002, BTS, L3890.6102, L3890.6006, L509.4006 #### [facility] Laboratory [address] [place], [address] HIVon 12-03-2024 HIV Non-Reactive Normal Nonreactive [facility] Comment on above: Result Comment: Non- Reactive Reactive Repeatedly reactive samples must be confirmed according to CDC recommended confirmatory algorithms. The subresults for either HIVAG or AHIV can be used as an aid in the selection of the confirmation algorithm for reactive samples. Send out specimens with Reactive results to [facility] for confirmation. Order the HIV antibody detection and differentiation: lc#[id number] Performed By: #### L 3890.6301, L100.0100, L509.8002, BTS, L3890.6102, L3890.6006, L509.4006 ####[facility] [id number] [place], [address] Hepatitis C Antibodyon 12-03 Hepatitis C Ab Non-Reactive Normal Nonreactive [facility] Comment on above: Result Comment: Reac tive: Presumptive evidence of antibodies to HCV. Follow CDC recommendations for supplemental testing. Non-Reactive: Antibodies to HCV were not detected; does not exclude the possibility of exposure to HCV Reactive Results are presumptive evidence of antibodies to HCV. Follow CDC recommendations for supplemental testing. Order confirmation testing: HCV Quant by PCR testing - HCVPCR #[id number] Non Reactive: < 0.8 Equivocal: >/= 0.8 to < 1.0 Reactive: >/= 1.0 The CDC requires that a reactive/equivocal HCV antibody result be sent out for confirmation. HCV Quant by PCR testing. Performed By: #### L 3890.6301, L100.0100, L509.8002, BTS, L3890.6102, L3890.6006, L509.4006 ####[facility] [id number] [place], [place], [id number] L3890.6102on 12-03-2024 HEP B Surf Ag Non-Reactive Normal Nonreactive [facility] Comment on above: Result Comment: Reac tive: Presumptive evidence of HBV. Repeatedly reactive samples must be confirmed using a neutralization test ([employer] HBsAg Confirmatory Test) Non-Reactive: HBsAg not detected; does not exclude the possibility of exposure to HBV Performed By: #### L 3890.6301, L100.0100, L509.8002, BTS, L3890.6102, L3890.6006, L509.4006 ####[facility] [address] [place], [address] L509.4006on 12-03-2024 Rubella IgG REAC Normal Nonreactive [facility] Comment on above: Result Comment: Anti body Result: Interpretation Non-Reactive: Non-Immune Reactive: Immune The following results were obtained with the [employer] Rubella IgG assay. Results from assays of other manufacturers cannot be used interchangeably. Performed By: #### L 3890.6301, L100.0100, L509.8002, BTS, L3890.6102, L3890.6006, L509.4006 #### [facility] Laboratory [address] [place], [place], [address] [employer] Office Visit Reporton 12-03-2024 [employer] Principal Office Visit Report [facility] [address], [address] [place] [address] OFFICE VISIT Date of Service: 12/03/24 MR#: [id number] Acct: [id number] Name: ASAEL LEÓN Rep #: [id number] : 1990 Provider: Dr. Verena Bullock DO Age/Sex: 34/F Location: [facility] Status: Signed Intake Vital Signs 11/05/24 11:47 12/03/24 08:58 12/03/24 09:00 Height 5 ft 1 in 5 ft 1 in 5 ft 1 in Weight: 146 lb 4 oz BMI 27.6 BP 108/69 Intake Visit Reasons: 16wk5d ob Service Clerk Required: No Is patient in pain?: No [...] spouse current occupational status: unemployed current occupation: [employer] current occupational exposures/hazards: No pets and animals: [...] physical activity do you participate in: none brennen/congregation: Jewish seatbelt use: always do you feel safe at home: Yes additional social history: : [email or web address] -> changing to [place] working History 1 [...] ???-???-???-???-???-? ??-???- JV- patient is traveling to [facility] for 2 weeks. declines flu shot. rx for promethazine. 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 new ob labs today. ACOG First Trimester First Trimester: Desire for , Alcohol, Tobacco Cessation, Illicit/Recreational Drug/Substance Use, Intimate Partner Violence, Barriers to care, Unstable Housing, Communication Barriers, Environmental/Work Hazards, Anticipated Course of Care, Toxoplasmosis Precat (more content not included)... Normal [facility] Syphilis Antibodieson 2024 Syphilis Abs Non-Reactive Normal Nonreactive [facility] Comment on above: Performed By: #### L 3890.6301, L100.0100, L509.8002, BTS, L3890.6102, L3890.6006, L509.4006 ####[facility] [address] [place], [place], [id number] Type AND Screenon 12-03-2024 Ab SCREEN GEL Negative Normal [facility] Comment on above: Order Comment: PN Performed By: #### L 3890.6301, L100.0100, L509.8002, BTS, L3890.6102, L3890.6006, L509.4006 ####[facility] [id number] [place], [place], [id number] ABO and Rh group Nom (Bld) Blood group A Rh(D) positive Normal [facility] Comment on above: Order Comment: PN Performed By: #### L 3890.6301, L100.0100, L509.8002, BTS, L3890.6102, L3890.6006, L509.4006 ####[facility] [address] [place], [address] Chlamydia/GC MELODY aptimaon CHLAMY,NUC ACID Negative Normal Negative [facility] Comment on above: Performed By: #### M 100.2200, L7000.1800 #### [facility] Laboratory [address] [place], [address] GC BY NUC ACID Negative Normal Negative [facility] Comment on above: Result Comment: Perf ormed at: =G - [facility] [address] [id number] Director Phone: Morelia Jimenez MD, Phone: [phone] Performed By: #### M 100.2200, L7000.1800 #### [facility] Laboratory [address] [place], [address] Urine Cultureon 11-07-2024 URC Mixed Gram Pos Gram Neg Org Austin Count <1000 MIXC Mixed contaminants. Submit a new specimen if indicated. Normal [facility] Comment on above: Performed By: #### M 100.2200, L7000.1800 #### [facility] Laboratory [address] [place], [address] Chlamydia trachomatis rRNA d etection by probe and target amplification methodOrdered By: Jennifer Ramirez on 11-05-2024 C. trachomatis rRNA MELODY+probe Ql (Unsp spec) Negative Negative [facility] Neisseria gonorrhoeae nuclei c acid detection by amplified probe techniqueOrdered By: Jennifer Ramirez on 11-05-2024 N. gonorrhoeae DNA MELODY+probe Ql (Unsp spec) Negative Negative [facility] Comment on above: Performed at: =G - [address] [id number] Director: Morelia Jimenez MD, Phone: [phone] [employer] Principal Office Visit Reporton 11-05-2024 Elementary [employer] Principal Office Visit Report [facility], [address] [place] [address] OFFICE VISIT Date of Service: 11/05/24 MR#: [id number] Acct: [id number] Name: ASAEL LEÓN Rep #: [id number] : 1990 Provider: DARIUS Gilliam ams Age/Sex: 34/F Location: [facility] [facility] Status: Signed Intake Vital Signs 11/08/15 19:37 11/05/24 11:44 11/05/24 11:47 Height 5 ft 1 in 5 ft 1 in 5 ft 1 in Weight: 143 lb BMI 27.0 BP 117/65 Intake Visit Reasons: *NEW* NOB [facility] 12w5d, LLUVIA 05/15 Service Clerk Required: No Is patient in pain?: No [...] physical activity do you participate in: none brennen/congregation: Jewish seatbelt use: always do you feel safe [...] No, [place] (more content not included)... Normal [facility] Urine cultureOrdered By: Eros Ramirez on 11-05-2024 Bacteria identified Cx Nom (U) Mixed Gram Pos & Gram Neg Org Abnormal [facility] Echo Completeon 09-21-2024 Echo Complete [facility] [address] [place] [address] Echo Complete 09/21/24 0808 MR#: [id number] Acct: [id number] Name: ASAEL LEÓN Rep #: [id number] : 1990 34 From: Igor Haines MD [...] Date Dictated: 09/21/24 0808 Date Transcribed: 09/21/241347 Shell Fisherman: Signed Normal [facility] Echocardiogram study reportO rdered By: Igor Haines on 09-21-2024 Study report [facility] [address] [place] [address] Echo Complete 09/21/24807 MR#: [id number] Acct: [id number] Name: ASAEL LEÓN Rep #:[id number] : 1990 34 From: Igor Quevedo Attending Dr: Dr. Emelina Cardenas MD Status: REG CLI Ordering Dr: Emelina Cardenas MD Date: Location: [facility] Sex: F C Admitted: Reason For [...] Wayne RDCS 09/21/24 1348 Date _ Igor Haines MD CC: CHICA Donahue; Dr. Emelina Cardenas MD ~ Date Dictated: 09/21/24 0808 Date Transcribed: 09/21/24 1348 Shell Fisherman: Signed [facility] Work Phone: LABORATORYOrdered By: Payton Haider on 08-13-2024 HCG ( test) Ql Negative (08/13/24 11:11 AM) Normal AO Manual Urine SS test (u) int Not detected Invalid Interpretation Code AO Manual Urine SS PREGUon 08-13-2024 HCG ( test) Ql (U) Negative Normal [facility] Comment on above: Performed By: #### A SUZIE PEREIRA #### [address] [address] test (u) int Not detected Invalid Interpretation Code [facility] Comment on above: Performed By: #### A SUZIE PEREIRA #### [facility] [address] [place], [place] [address] XR HYSTEROSALPINGOGRAPHYon 0 08-13-2024 XR HYSTEROSALPINGOGRAPHY ORIGINAL EXAMINATION: HYSTEROSALPINGOGRAM08/13/2024 12:15 pm COMPARISON: None available HISTORY: ORDERING SYSTEM PROVIDED HISTORY: Reason for Exam: INFERTILITY FINDINGS: A catheter was placed through the cervical os and contrast material was instilled into the uterus by the anchorman. Spot films were obtained by the radiologist. [...] 1:12:18 PM Ordering Provider: EMELINA CARDENAS Normal [facility] LABORATORYOrdered By: SYSTEM SYSTEM on [...] PROGon 06-20-2025 Progesterone Level 29.3 ng/mL Normal [facility] Comment on above: Result Comment: Adul t Female Progesterone Reference Ranges: Follicular phase <0.21 - 1.40 ng/mL Luteal phase 3.34 - 25.56 ng/mL Mid-Luteal phase 4.44 - 28.03 ng/mL Postmenopausal <0.21 - 0.73 ng/ml Female: First trimester 11.22 - 90.00 ng/ml Second trimester 25.55 - 89.40 ng/ml Third trimester 48.40 - 422.50 ng/ml Performed By: #### A KELLI, ABSGEL #### [facility] [place] [address] [place], [place] [address] Director [employer] Cytology Reporton 2024 Director [employer]ed [employer] Cytology Report . Pathology Reports Accession: Collected Date/Time: Received Date/Time: Pathologist: [id number] 07/01/2024 10:57 EDT 07/01/2024 18:00 EDT Director [employer] Cytology Report SPECIMEN: Specimen Description: Liquid Prep [...] Reports Accession: Collected Date/Time: Received Date/Time: Pathologist: [id number] 07/01/2024 10:57 EDT 07/01/2024 18:00 EDT COMMENT: This Pap Test was successfully processed and evaluated with the assistance of the [employer] ThinPrep Test Imaging System. Verified by Pathology report verified by [facility] Screened by: HEMANT Electronically signed by Juhi Abrams Sign-Out Date: 07/09/2024 12:16 Performing Lab: [facility], [address] [place], [place] [id number] Pathology Dept Disclaimer The Pap test is a screening test for cervical cancer. As evidenced by published data, it is subject to both inherent false negative and false positive results. Your patient's results should be interpreted in context with pertinent clinical history including gynecological examination. Normal [facility] HPVon 07-07-2024 HPV Interp See Interp HPVN Normal See Interp HPVN [facility] Comment on above: Order Comment: Order placed by AP_HPV_ORDER rule from [id number] Result Comment: Clinical Interpretation: High Risk HPV [...] By: #### A SUZIE PEREIRA #### [facility] [place] [address] [place], [place] [address] HPV Source Cervix Normal [facility] Comment on above: Order Comment: Order placed by AP_HPV_ORDER rule from [id number] Performed By: #### A SUZIE PEREIRA #### [facility] [address] [place], [place] [address] BVPCRon 07-03-2024 Bacterial Vaginosis Positive Abnormal Negative [facility] Comment on above: Result Comment: Mole cular methodology performed on the Netzoptiker System. Performed By: #### C VTV, NGPCR1, BVPCR, CTPCR #### [place] [address] CVTVon 07-03-2024 Lisy glabrata Negative Normal Negative [facility] Comment on above: Result Comment: p - Assay processing error. Performed By: #### C VTV, NGPCR1, BVPCR, CTPCR #### [place] [address] Lisy Species Negative Normal Negative [facility] Comment on above: Result Comment: p - Assay processing error. Molecular methodology performed on the Netzoptiker System. Performed By: #### C VTV, NGPCR1, BVPCR, CTPCR #### [place] [address] Trichomonas vaginalis Negative Normal Negative [facility] Comment on above: Result Comment: p - Assay processing error. Performed By: #### C VTV, NGPCR1, BVPCR, CTPCR #### [place] [address] CTPCRon 07-02-[address]24 C. trachomatis Interp See CT Interp N Normal See CT Interp N [facility] Comment on above: Result Comment: Clinical Interpretation: C. trachomatis DNA not detected. Specimen is presumptive negative for C. trachomatis. A negative result does not preclude C. trachomatis infection because results depend on adequate specimen collection, absence of inhibitors, and sufficient DNA to be detected. Performed By: #### C VTV, NGPCR1, BVPCR, CTPCR #### [place] [address] C.trachomatis PCR Negative Normal Negative [facility] Comment on above: Result Comment: Suri yanez (PCR) assay performed on the Josse Jonah 4800 system. Performed By: #### C VTV, NGPCR1, BVPCR, CTPCR #### [address] [address] Chlam Source Cervix Normal [facility] Comment on above: Performed By: #### C VTV, NGPCR1, BVPCR, CTPCR #### [address] [address] LFVTQ4dx 07-02-2024 GC PCR Source Cervix Normal [facility] Comment on above: Performed By: #### C VTV, NGPCR1, BVPCR, CTPCR #### [address] [address] N. gonorrhoeae (PCR) Negative Normal Negative [facility] Comment on above: Result Comment: Mole cular (PCR) assay performed on the Josse Jonah 4800 System. Performed By: #### C VTV, NGPCR1, BVPCR, CTPCR #### [address] [address] N. gonorrhoeae Interp See NG Interp N Normal See NG Interp N [facility] Comment on above: Result Comment: Clinical Interpretation: N. gonorrhoeae DNA not detected. Specimen is presumptive negative for N. gonorrhoeae. A negative result does not preclude Neisseria gonorrhoeae infection because results depend on adequate specimen collection, absence of inhibitors, and sufficient DNA to be detected. Performed By: #### C VTV, NGPCR1, BVPCR, CTPCR #### [address] [address] RPRon 07-02-2024 Reagin Ab RPR Ql (S) Non-Reactive Normal Non-Reactive [facility] Comment on above: Result Comment: [...] Performed By: #### A KELLI ABSGEL #### [address] [address] RUBISon 07-02-[address] Positive Normal Positive [facility] Comment on above: Result Comment: This immune status assay detects IgM and/or IgG antibody to Rubella. Interpret results in conjunction with clinical history. POS: Antibody detected; exposure at undetermined recent or distant time. If clinically indicated, order Rubella IGM to rule out recent infection. NEG: No antibody detected. Performed By: #### A SUZIE PEREIRA #### [place] [address] .Auto Diffon 07-01-2024 Basophil, Absolute 0.0 10 3/mcL Normal 0.0-0.3 [facility] Comment on above: Performed By: #### T SH, ADIFF, ANEU, FT3, FT4, CBC #### [place] [address] #### HBSAG, RPR, PROG, RUBIS #### [address] [address] Basophils/100 WBC (Bld) 0.5 % Normal 0.0-2.5 [facility] Comment on above: Performed By: #### T SH, ADIFF, ANEU, FT3, FT4, CBC #### [place] [address] #### HBSAG, RPR, PROG, RUBIS #### [address] [address] Eosinophil, Absolute 0.1 10 3/mcL Normal 0.0-0.7 [facility] Comment on above: Performed By: #### T SH, ADIFF, ANEU, FT3, FT4, CBC #### [place] [address] #### HBSAG, RPR, PROG, RUBIS #### [address] [address] Eosinophils/100 WBC (Bld) 1.4 % Normal 0.0-6.0 [facility] Comment on above: Performed By: #### T SH, ADIFF, ANEU, FT3, FT4, CBC #### [place] [address] #### HBSAG, RPR, PROG, RUBIS #### [address] [address] Lymphocyte, Absolute 1.7 10 3/mcL Normal 0.9-4.3 [facility] Comment on above: Performed By: #### T SH, ADIFF, ANEU, FT3, FT4, CBC #### [place] [address] #### HBSAG, RPR, PROG, RUBIS #### [address] [address] Lymphocytes/100 WBC (Bld) 28.9 % Normal 20.0-40.0 [facility] Comment on above: Performed By: #### T SH, ADIFF, ANEU, FT3, FT4, CBC #### [place] [address] #### HBSAG, RPR, PROG, RUBIS #### [address] [address] Monocyte, Absolute 0.4 10 3/mcL Normal 0.1-1.4 [facility] Comment on above: Performed By: #### T SH, ADIFF, ANEU, FT3, FT4, CBC #### [place] [address] #### HBSAG, RPR, PROG, RUBIS #### [address] [address] Monocytes/100 WBC (Bld) 7.0 % Normal 2.0-13.0 [facility] Comment on above: Performed By: #### T SH, ADIFF, ANEU, FT3, FT4, CBC #### [place] [address] #### HBSAG, RPR, PROG, RUBIS #### [address] [address] Neutrophils/100 WBC (Bld) 62.2 % Normal 50.0-75.0 [facility] Comment on above: Performed By: #### T SH, ADIFF, ANEU, FT3, FT4, CBC #### [address] [address] #### HBSAG, RPR, PROG, RUBIS #### [address] [address] .NEUABSon 07-01-2024 Neutrophil, Absolute 3.6 10 3/mcL Normal 2.3-8.1 [facility] Comment on above: Performed By: #### T SH, ADIFF, ANEU, FT3, FT4, CBC #### [address] [address] #### HBSAG, RPR, PROG, RUBIS #### [address] [address] ABO/Rh (Gel)on 07-01-2024 ABO/Rh Interp Positive Invalid Interpretation Code [facility] Comment on above: Performed By: #### A KELLI ABSIKE #### [address] [address] ABS (Gel)on 07-01-2024 ABSC Interp (Gel) Negative Normal [facility] Comment on above: Performed By: #### A KELLI ABSGEL #### [address] [address] CBCon 07-01-2024 Erythrocyte distribution width (RBC) [Ratio] 12.7 % Normal 11.5-15.5 [facility] Comment on above: Performed By: #### T SH, ADIFF, ANEU, FT3, FT4, CBC #### [address] [address] #### HBSAG, RPR, PROG, RUBIS #### [address] [address] Hematocrit (Bld) [Volume fraction] 37.4 % Normal 34.0-46.0 [facility] Comment on above: Performed By: #### T SH, ADIFF, ANEU, FT3, FT4, CBC #### [place] [address] #### HBSAG, RPR, PROG, RUBIS #### [place] [address] Hgb 12.8 G/dL Normal 12.0-16.0 [facility] Comment on above: Performed By: #### T SH, ADIFF, ANEU, FT3, FT4, CBC #### [place] [address] #### HBSAG, RPR, PROG, RUBIS #### [place] [address] MCH (RBC) [Entitic mass] 29.1 pg Normal 27.0-33.0 [facility] Comment on above: Performed By: #### T SH, ADIFF, ANEU, FT3, FT4, CBC #### [place] [address] #### HBSAG, RPR, PROG, RUBIS #### [place] [address] MCHC 34.3 G/dL Normal 32.0-36.0 [facility] Comment on above: Performed By: #### T SH, ADIFF, ANEU, FT3, FT4, CBC #### [place] [address] #### HBSAG, RPR, PROG, RUBIS #### [place] [address] MCV (RBC) [Entitic vol] 85.0 fL Normal 80.0-99.0 [facility] Comment on above: Performed By: #### T SH, ADIFF, ANEU, FT3, FT4, CBC #### [place] [address] #### HBSAG, RPR, PROG, RUBIS #### [place] [address] Platelet 189 10 3/mcL Normal 150-450 [facility] Comment on above: Performed By: #### T SH, ADIFF, ANEU, FT3, FT4, CBC #### [place] [address] #### HBSAG, RPR, PROG, RUBIS #### [place] [address] Platelet mean volume (Bld) [Entitic vol] 8.6 fL Normal 6.6-10.5 [facility] Comment on above: Performed By: #### T SH, ADIFF, ANEU, FT3, FT4, CBC #### [place] [address] #### HBSAG, RPR, PROG, RUBIS #### [place] [address] RBC 4.40 10 6/mcL Normal 4.10-5.30 [facility] Comment on above: Performed By: #### T SH, ADIFF, ANEU, FT3, FT4, CBC #### [place] [address] #### HBSAG, RPR, PROG, RUBIS #### [place] [address] WBC 5.7 10 3/mcL Normal 4.5-10.8 [facility] Comment on above: Performed By: #### T SH, ADIFF, ANEU, FT3, FT4, CBC #### [place] [address] #### HBSAG, RPR, PROG, RUBIS #### [place] [address] FT3on 07-01-2024 Free T3 [Mass/Vol] 2.52 pg/mL Normal 2.30-4.00 [facility] Comment on above: Performed By: #### A SUZIE PEREIRA #### [place] [address] FT4on 07-01-2024 Free T4 [Mass/Vol] 0.91 ng/dL Normal 0.76-1.46 [facility] Comment on above: Performed By: #### A SUZIE PEREIRA #### [facility] [address] [place], [place] [address] HBSAGon 07-01-2024 Hep B Surf Ag Non-Reactive Normal Non-Reactive [facility] Comment on above: Performed By: #### A SUZIE PEREIRA #### [facility] [address] [place], [place] [address] LABORATORYOrdered By: Bishnu Rosenberg on 07-01-2024 Bacterial Vaginosis Positive 3 *ABN* (07/01/24 4:02 PM) Invalid Interpretation Code Negative [facility]ero [facility] Comment on above: Interpretive Data: M olecular methodology performed on the ZAPITAN[employer] Branford System. C. trachomatis DNA MELODY+probe Ql (Unsp [...] Data: M olecular methodology performed on the [employer]IT[employer] Branford System. N. gonorrhoeae DNA MELODY+probe Ql (Unsp [...] PROGon 07-01-2024 Progesterone Level 9.0 ng/mL Normal [facility] Comment on above: Result Comment: Adul t Female Progesterone Reference Ranges: Follicular phase <0.21 - 1.40 ng/mL Luteal phase 3.34 - 25.56 ng/mL Mid-Luteal phase 4.44 - 28.03 ng/mL Postmenopausal <0.21 - 0.73 ng/ml Female: First trimester 11.22 - 90.00 ng/ml Second trimester 25.55 - 89.40 ng/ml Third trimester 48.40 - 422.50 ng/ml Performed By: #### A SUZIE PEREIRA #### [place] [address] [place], [place] [address] TSHon 07-01-2024 TSH Qn 1.94 m[IU]/L Normal 0.36-3.74 [facility] Comment on above: Performed By: #### A SUZIE PEREIRA #### [address] [address] Bilat Brst Denzel Stand Aloneo n 05-08-2024 Bilat Brst Denzel Stand Alone [facility] Imaging Services [address] [place] [address] Bilat Brst Denzel Stand Alone MR#: [id number] Acct: [id number] Name: ASAEL LEÓN Rep #: [id number] : 1990 F 33 From: Dee Vázquez MD PCP: CHICA Linn Status: REG CLI Study: Bilat Brst Denzel Stand Alone Date of Exam: 04/12 10/05 Exam# [id number] Ordering Dr: Momo Donahue NP NURSE SPECIALIST-C EXAM: DIAG MAMM W/CAD, BILAT; BILAT BRST [...] be mailed to the patient. Reading Location: [id number] CC: CHICA Donahue Shell Fisherman: Signed Normal [facility] Breast Limited Unilateralon 05-08-2024 Breast Limited Unilateral [facility] Imaging Services [address] [place] [id number] Breast Limited Unilateral MR#: [id number] Acct: [id number] Name: ASAEL LEÓN Rep #: [id number] : 1990 F 33 From: Dee Vázquez MD PCP: CHICA Linn Status: REG CLI Study: Breast Limited Unilateral Date of Exam: Exam# [id number] Ordering Dr: Momo Donahue NP NURSE SPECIALIST-C EXAM: DIAG MAMM W/CAD, BILAT; BILAT BRST [...] be mailed to the patient. Reading Location: [facility] CC: CHICA Donahue Shell Fisherman: Signed Normal [facility] Breast imaging reportOrdered By: Dee Vázquez on 05-08-2024 Study report [facility] Imaging Services [address] [place] [address] DIAG MAMM W/CAD, BILAT MR#: [id number] Acct: [id number] Name: ASAEL LEÓN Rep #: [id number] : 1990 F 33 From: Gilma Vázquez MD PCP: CHICA Linn Status: [facility] CLI Study:DIAG MAMM W/CAD, BILAT Date of Exam: 05/08/24 Exam# [id number] Ordering Dr: Momo Donahue NP NURSE SPECIALIST-C EXAM: DIAG MAMM W/CAD, BILAT; BILAT BRST [...] be mailed to the patient. Reading Location: [facility] CC: NURSE SPECIALIST-Ly Donahue ~ Shell Fisherman: Signed [facility] Study report [facility] Imaging Services [address] [place] [id number] Bilat Brst Denzel Stand Alone MR#: [id number] Acct: [id number] Name: ASAEL LEÓN Rep #: [id number] : 1990 F 33 From: Gilma Vázquez MD PCP: CHICA Linn Status: [facility] Study:Bilat Brst Denzel Stand Alone Date of Exa m: 05/08/24 Exam# [id number] Ordering Dr: Momo Donahue NP NURSE SPECIALIST-C EXAM: DIAG MAMM W/CAD, BILAT; BILAT BRST [...] be mailed to the patient. Reading Location: [id number] CC: CHICA Donahue ~ Shell Fisherman: Signed [facility] DIAG MAMM W/CAD, BILATon DIAG MAMM W/CAD, BILAT [facility] Imaging Services [address] [place] [address] DIAG MAMM W/CAD, BILAT MR#: [id number] Acct: [id number] Name: ASAEL LEÓN Rep #: [id number] : 1990 F 33 From: Dee Vázquez MD PCP: CHICA Linn Status: [facility] Study: DIAG MAMM W/CAD, BILAT Date of Exam: 05/08/24 Exam# [id number] Ordering Dr: Momo Donahue NP NURSE SPECIALIST-C EXAM: DIAG MAMM W/CAD, BILAT; BILAT BRST [...] be mailed to the patient. Reading Location: [facility] CC: CHICA Donahue Shell Fisherman: Signed Normal [facility] Anion gap in Serum or Plasma Ordered By: Momo Donahue on 05-01-2024 Anion gap [Moles/Vol] 10 mmol/L 5-15 [facility] BUN/creatinine ratioOrdered By: Momo Donahue on 05-01-2024 Urea nitrogen/Creatinine [Mass ratio] 19.0 mg/mg 10-20 [facility] Bilirubin, totalOrdered By: Momo Donahue on 05-01-2024 Bilirubin [Mass/Vol] 0.33 mg/dL 0.00-1.30 [facility] CBC-Complete Blood Cnt No Di ffon 05-01-2024 Erythrocyte distribution width (RBC) [Ratio] 11.9 % Normal 11.6-14.6 [facility] Comment on above: Performed By: #### L 500.4100, L100.0500, L500.4050 ####[facility] [address] [place], [address] Hematocrit (Bld) [Volume fraction] 35.6 % Low 37-47 [facility] Comment on above: Performed By: #### L 500.4100, L100.0500, L500.4050 ####[facility] [address] [place], [address] Hemoglobin (Bld) [Mass/Vol] 12.1 g/dL Normal 12.0-15.0 [facility] Comment on above: Performed By: #### L 500.4100, L100.0500, L500.4050 ####[facility] [address] [place], [address] MCH (RBC) [Entitic mass] 29.2 pg Normal 27.0-32.0 [facility] Comment on above: Performed By: #### L 500.4100, L100.0500, L500.4050 ####[facility] [address] [place], [address] MCHC (RBC) [Mass/Vol] 34.0 g/dL Normal 32-36 [facility] Comment on above: Performed By: #### L 500.4100, L100.0500, L500.4050 ####[facility] [address] [place], [address] MCV (RBC) [Entitic vol] 86.0 fL Normal 81-99 [facility] Comment on above: Performed By: #### L 500.4100, L100.0500, L500.4050 ####[facility] [address] [place], [address] Platelet mean volume (Bld) [Entitic vol] 10.2 fL Normal 6.2-12.0 [facility] Comment on above: Performed By: #### L 500.4100, L100.0500, L500.4050 ####[facility] [address] [place], [address] Platelets (Bld) [#/Vol] 256 10*3/uL Normal 150-450 [facility] Comment on above: Performed By: #### L 500.4100, L100.0500, L500.4050 ####[facility] [address] [place], [address] RBC (Bld) [#/Vol] 4.14 10*6/uL Low 4.2-5.4 [facility] Comment on above: Performed By: #### L 500.4100, L100.0500, L500.4050 ####[facility] [address] [place], [address] RDW SD 37.7 fl Normal 35.1-43.9 [facility] Comment on above: Performed By: #### L 500.4100, L100.0500, L500.4050 ####[facility] [address] [place], [address] WBC (Bld) [#/Vol] 9.6 10*3/uL Normal 4.4-11.0 [facility] Comment on above: Performed By: #### L 500.4100, L100.0500, L500.4050 ####[facility] [address] [place], [address] Calculated very low density lipoprotein (VLDL) cholesterol measurementOrdered By: Momo Donahue on 05-01-2024 VLDL Cholesterol 9 mg/dL 5-40 [facility] Carbon dioxide, total [Moles /volume] in Central venous bloodOrdered By: Momo Donahue on 05-01-2024 CO2 [Moles/Vol] 25.5 mmol/L 21.0-32.0 [facility] Chloride assayOrdered By: Yoav Donahue on 05-01-2024 Chloride [Moles/Vol] 102 mmol/L 98-108 [facility] Comprehensive Metabolic Prof ilon 05-01-2024 Albumin [Mass/Vol] 4.3 g/dL Normal 3.5-5.0 [facility] Comment on above: Performed By: #### L 500.4100, L100.0500, L500.4050 ####[facility] [address] [place], [address] Albumin/Globulin [Mass ratio] 2.0 {ratio} Normal 0.9-2.4 [facility] Comment on above: Performed By: #### L 500.4100, L100.0500, L500.4050 ####[facility] [address] [place], [address] ALK PHOS 48 U/L Normal 35-104 [facility] Comment on above: Performed By: #### L 500.4100, L100.0500, L500.4050 ####[facility] [address] [place], [address] ALT [Catalytic activity/Vol] 13 U/L Normal <=34 [facility] Comment on above: Performed By: #### L 500.4100, L100.0500, L500.4050 ####[facility] [address] [place], [address] AST [Catalytic activity/Vol] 16 U/L Normal <=31 [facility] Comment on above: Performed By: #### L 500.4100, L100.0500, L500.4050 ####[facility] [address], [address] Bilirubin [Mass/Vol] 0.33 mg/dL Normal 0.00-1.30 [facility] Comment on above: Performed By: #### L 500.4100, L100.0500, L500.4050 ####[facility] [address] [place], [address] BUN/CRE 19.0 RATIO Normal 10-20 [facility] Comment on above: Performed By: #### L 500.4100, L100.0500, L500.4050 ####[facility] [address] [place], [address] Calcium [Mass/Vol] 9.2 mg/dL Normal 7.6-11.0 [facility] Comment on above: Performed By: #### L 500.4100, L100.0500, L500.4050 ####[facility] [address] [place], [address] Chloride [Moles/Vol] 102 mmol/L Normal 98-108 [facility] Comment on above: Performed By: #### L 500.4100, L100.0500, L500.4050 ####[facility] [address] [place], [address] CO2 [Moles/Vol] 25.5 mmol/L Normal 21.0-32.0 [facility] Comment on above: Performed By: #### L 500.4100, L100.0500, L500.4050 ####[facility] [address] [place], [address] Creatinine [Mass/Vol] 0.70 mg/dL Normal 0.70-1.20 [facility] Comment on above: Performed By: #### L 500.4100, L100.0500, L500.4050 ####[facility] [address] [place], [address] GAP 10 Normal 5-15 [facility] Comment on above: Performed By: #### L 500.4100, L100.0500, L500.4050 ####[facility] [address] [place], [address] GFR/1.73 sq M.predicted among non-blacks MDRD (S/P/Bld) [Vol rate/Area] 116 mL/min/{1.73_m2} Normal >60 [facility] Comment on above: Result Comment: mL/m in/1.73m2 CKD-EPI Creatinine Equation (2020) Performed By: #### L 500.4100, L100.0500, L500.4050 ####[facility] [address] [place], [address] Globulin (S) [Mass/Vol] 2.2 g/dL Normal 2.2-4.2 [facility] Comment on above: Performed By: #### L 500.4100, L100.0500, L500.4050 ####[facility] [address] [place], [address] Glucose [Mass/Vol] 96 mg/dL Normal 70-99 [facility] Comment on above: Performed By: #### L 500.4100, L100.0500, L500.4050 ####[facility] [address] [place], [address] Potassium [Moles/Vol] 4.0 mmol/L Normal 3.3-5.1 [facility] Comment on above: Performed By: #### L 500.4100, L100.0500, L500.4050 ####[facility] [address] [place], [address] Sodium [Moles/Vol] 138 mmol/L Normal 133-145 [facility] Comment on above: Performed By: #### L 500.4100, L100.0500, L500.4050 ####[facility] [address] [place], [address] T PROT 6.5 g/dL Normal 5.9-8.4 [facility] Comment on above: Performed By: #### L 500.4100, L100.0500, L500.4050 ####[facility] [address] [place], [address] Urea nitrogen [Mass/Vol] 13 mg/dL Normal 4-19 [facility] Comment on above: Performed By: #### L 500.4100, L100.0500, L500.4050 ####[facility] [address] [place], [address] Erythrocyte distribution wid th ratioOrdered By: Momo Donahue on 05-01-2024 Erythrocyte distribution width (RBC) [Ratio] 11.9 % 11.6-14.6 [facility] Erythrocyte distribution wid th standard deviationOrdered By: Momo Donahue on 05-01-2024 Erythrocyte distribution width (RBC) [Entitic vol] 37.7 fL 35.1-43.9 [facility] GFR/1.73 sq M.predicted navneet g non-blacks MDRD (S/P/Bld) [Vol rate/Area]Ordered By: Momo Donahue on 05-01-2024 Estimated GFR (MDRD) Non-Af Amer 116 >60 [facility] Comment on above: mL/min/1.73m2 CKD-EP I Creatinine Equation (2020) Hematocrit Auto (Bld) [Volum e fraction]Ordered By: Momo Donahue on 05-01-2024 Hematocrit (Bld) [Volume fraction] 35.6 % Low 37-47 [facility] Hemoglobin measurementOrdere d By: Momo Donahue on 05-01-2024 Hemoglobin (Bld) [Mass/Vol] 12.1 g/dL 12.0-15.0 [facility] LDL calc ser/plasOrdered By: Momo Donahue on 05-01-2024 LDL Cholesterol, Calculated 88 mg/dL [facility] Comment on above: Hnbjhpxrge=745-290 m g/dL & Higher Bihv=314 mg/dL or greater Laboratory - Chemistry and C hemistry - challengeOrdered By: Momo Donahue on 05-01-2024 AST [Catalytic activity/Vol] 16 U/L <32 [facility] Lipid Profileon 05-01-2024 CHOL:HDL 2.11 Normal [facility] Comment on above: Performed By: #### L 500.4100, L100.0500, L500.4050 ####[facility] [address] [place], [address] Cholesterol [Mass/Vol] 185 mg/dL Normal <=200 [facility] Comment on above: Result Comment: Chol esterol level, Desirable <200 mg/dL Borderline high cholesterol 200-239 mg/dL High cholesterol >=240 mg/dL Recommendations of the NCEP Adult Treatment Panel for the following risk-cutoff thresholds for the [place] population. Performed By: #### L 500.4100, L100.0500, L500.4050 ####[facility] [address] [place], [address] Cholesterol in HDL [Mass/Vol] 88 mg/dL Normal [facility] Comment on above: Result Comment: Maritza onal Cholesterol Education Program (NCEP) guidelines: <40 mg/dL: Low HDL-cholesterol (major risk factor for CHD) >= 60 mg/dL: High HDL-cholesterol (negative risk factor for CHD) HDL-cholesterol is affected by a number of factors, e.g. smoking, exercise, hormones, sex and age. Performed By: #### L 500.4100, L100.0500, L500.4050 ####[facility] [address] [place], [address] Cholesterol in LDL [Mass/Vol] 88 mg/dL Normal [facility] Comment on above: Result Comment: Bord bxzjkh=633-160 mg/dL Higher Gqqx=664 mg/dL or greater Performed By: #### L 500.4100, L100.0500, L500.4050 ####[facility] [address] [place], [address] Cholesterol in VLDL [Mass/Vol] 9 mg/dL Normal 5-40 [facility] Comment on above: Performed By: #### L 500.4100, L100.0500, L500.4050 ####[facility] [address] [place], [place], [address] Triglyceride [Mass/Vol] 47 mg/dL Normal [facility] Comment on above: Result Comment: The drugs N-Acetylcysteine and Metamizole may falsely depress this assay. Normal range: <150 mg/dL Borderline High: 150-199 mg/dL High: 200-499 mg/dL Very High: >500 mg/dL Performed By: #### L 500.4100, L100.0500, L500.4050 ####[facility] [address] [place], [place], [address] MCV (mean corpuscular volume ) determinationOrdered By: Momo Donahue on 05-01-2024 MCV (RBC) [Entitic vol] 86.0 fL 81-99 [facility] Mean corpuscular hemoglobin (MCH) determinationOrdered By: Momo Donahue on 05-01-2024 MCH (RBC) [Entitic mass] 29.2 pg 27.0-32.0 [facility] Mean corpuscular hemoglobin concentration (MCHC) determinationOrdered By: Momo Donahue on 05-01-2024 MCHC (RBC) [Mass/Vol] 34.0 g/dL 32-36 [facility] Mean platelet volume determi nationOrdered By: Momo Donahue on 05-01-2024 Platelet mean volume (Bld) [Entitic vol] 10.2 fL 6.2-12.0 [facility] Platelet countOrdered By: Yoav Donahue on 05-01-2024 Platelets (Bld) [#/Vol] 256 10*3/uL 150-450 [facility] Potassium (Unsp spec) [Mass/ Vol]Ordered By: Momo Donahue on 05-01-2024 Potassium [Moles/Vol] 4.0 mmol/L 3.3-5.1 [facility] RBC Auto (Bld) [#/Vol]Ordere d By: Momo Donahue on 05-01-2024 RBC (Bld) [#/Vol] 4.14 10*6/uL Low 4.2-5.4 [facility] Screening total cholesterol/ high density lipoprotein (HDL) cholesterol ratioOrdered By: Momo Donahue on 05-01-2024 Cholesterol.total/Cholest usha in HDL [Mass ratio] 2.11 {ratio} [facility] Serum creatinine measurement (mass/volume)Ordered By: Momo Donahue on 05-01-2024 Creatinine [Mass/Vol] 0.70 mg/dL 0.70-1.20 [facility] Serum globulin measurementOr dered By: Momo Donahue on 05-01-2024 Globulin (S) [Mass/Vol] 2.2 g/dL 2.2-4.2 [facility] Serum glucose measurement (m ass/volume)Ordered By: Momo Donahue on 05-01-2024 Glucose [Mass/Vol] 96 mg/dL 70-99 [facility] Serum or plasma alanine uribe otransferase (ALT) measurementOrdered By: Momo Donahue on 05-01-2024 ALT [Catalytic activity/Vol] 13 U/L <35 [facility] Serum or plasma albumin charles urement (mass/volume)Ordered By: Momo Donahue on 05-01-2024 Albumin [Mass/Vol] 4.3 g/dL 3.5-5.0 [facility] Serum or plasma albumin/glob ulin mass ratioOrdered By: Momo Donahue on 05-01-2024 Albumin/Globulin [Mass ratio] 2.0 {ratio} 0.9-2.4 [facility] Serum or plasma alkaline enrique sphatase measurementOrdered By: Momo Donahue on 05-01-2024 ALP [Catalytic activity/Vol] 48 U/L 35-104 [facility] Serum or plasma calcium charles urement (mass/volume)Ordered By: Momo Donahue on 05-01-2024 Calcium [Mass/Vol] 9.2 mg/dL 7.6-11.0 [facility] Serum or plasma cholesterol in HDL measurement (mass/volume)Ordered By: Momo Donahue on 05-01-2024 Cholesterol in HDL [Mass/Vol] 88 mg/dL >40 [facility] Comment on above: National Cholesterol Education Program (NCEP) guidelines:<40 mg/dL: Low HDL-cholesterol (major risk factor for CHD)>= 60 mg/dL: High HDL-cholesterol (negative risk factor for CHD)HDL-cholesterol is affected by a number of factors, e.g. smoking, exercise, hormones, sex and age. Serum or plasma cholesterol measurement (mass/volume)Ordered By: Momo Donahue on 05-01-2024 Cholesterol [Mass/Vol] 185 mg/dL <201 [facility] Comment on above: Cholesterol level, D esirable <200 mg/dLBorderline high cholesterol 200-239 mg/dLHigh cholesterol >=240 mg/dLRecommendations of the NCEP Adult Treatment Panel for the following risk-cutoff thresholds for the [place] population. Serum or plasma urea nitroge n measurement (mass/volume)Ordered By: Momo Donahue on 05-01-2024 Urea nitrogen [Mass/Vol] 13 mg/dL 4-19 [facility] Sodium levelOrdered By: Wilmer Donahue on 05-01-2024 Sodium [Moles/Vol] 138 mmol/L 133-145 [facility] Total proteinOrdered By: Brad Donahue on 05-01-2024 Protein [Mass/Vol] 6.5 g/dL 5.9-8.4 [facility] Triglycerides measurementOrd ered By: Momo Donahue on 05-01-2024 Triglyceride [Mass/Vol] 47 mg/dL <199 [facility] Comment on above: The drugs N-Acetylcy steine and Metamizole may falsely depress this assay. Normal range: <150 mg/dLBorderline High: 150-199 mg/dLHigh: 200-499 mg/dLVery High: >500 mg/dL White blood cell (WBC) count Ordered By: Momo Donahue on 05-01-2024 WBC (Bld) [#/Vol] 9.6 10*3/uL 4.4-11.0 [facility] Non-ELYSIA Drug Screenon 08-30 Non-ELYSIA Drug Screen Collected Normal [facility] Comment on above: Order Comment: [employer] sent to [employer] via fedex Performed By: #### N NID #### [facility] CLIA # [id number] [address] [place] [address] CNOVon 01-28-2017 CNOV Office Visit (UCWSTR) ----BOGDANASAEL ([id number]) 1990 FDate Time Provider Gqwntevsye19/18/17 3:45 PM NATALI GARCIAS) UCWSTR During your [...] Good air exchange noted at the bases. FtB206 % on room airLymphadenopathy: Head (right side): [...] Status:Closed by NATALI GARCIAS CNP on 01/28/17 [facility] PROGRESSon 01-28-2017 PROGRESS HNO ID: [id number]: Natali Carter) Linseyervice: (none)Author Type: Nurse PractitionerType: [...] agreeable to treatment plan.Natali Garcias CNP Normal [facility] Vital Signs Date Time Vital Sign Value Performing Clinician Melissa mcclelland 11-05-2024 11:47-0400 Body height 154.94 cm Momo Donahue NP-C Work Phone: [facility] 11-05-2024 11:44-0400 Body mass index (BMI) [Ratio] 27 kg/m2 Momo Donahue NURSE SPECIALIST-C Work Phone: [facility] 11-05-2024 11:44-0400 Body weight 64.86 kg Momo Donahue NP-C Work Phone: [facility] 11-05-2024 11:44-0400 Diastolic blood pressure 65 mm[Hg] Momo Donahue NP-C Work Phone: [facility] 11-05-2024 11:44-0400 Systolic blood pressure 117 mm[Hg] Momo Donahue NURSE SPECIALIST-C Work Phone: [facility] Encounters Encounter Date Encounter Type Care Provider Facility Start: 01-04-2025 ambulatory Verena Mariee cility:[facility] Start: 12-03-2024 End: 12-03-2024 ambulatory Momo Donahue Facility:[facility] Start: 12-03-2024 End: 12-03-2024 ambulatory Momo Donahue Facility:[facility] Start: 11-05-2024 End: 11-05-2024 ambulatory Momo Donahue NURSE SPECIALIST-C Work Phone: -Laboratory Specimen Start: 11-05-2024 End: 11-05-2024 Patient encounter procedure Jennifer Ramirez CNM -Laboratory Specimen Work Phone: Start: 11-05-2024 End: 11-05-2024 Patient encounter procedure Jennifer Ramirez CNM -[place] [facility] Work Phone: Start: 11-05-2024 End: 11-05-2024 ambulatory Momo Donahue NURSE SPECIALIST-C Work Phone: -[facility] Start: 11-05-2024 End: 11-05-2024 ambulatory Momo Donahue Facility:[facility] Start: 10-30-2024 Non-patient / Non-visit Eliana Mckeon RN -[facility] Work Phone: Start: 10-30-2024 ambulatory Momo Donahue Facility:[facility] Start: 09-21-2024 Non-patient / Non-visit Dr. Igor Haines MD -[facility] Start: 09-21-2024 End: 09-21-2024 ambulatory Momo Donahue NURSE SPECIALIST-C Work Phone: -[facility] Start: 09-21-2024 End: 09-21-[address] Emelina Cardenas MD -[facility] Work Phone: Start: 09-21-2024 End: 09-21-2024 ambulatory Momo Donahue Facility:[facility] Start: 08-13-2024 End: 08-13-2024 ambulatory MOMO DONAHUE [employer] ENG[employer] Facility:[facility] Start: 08-13-2024 End: 08-13-2024 Patient encounter procedure EMELINA CARDENAS MD [facility] Start: 07-31-2024 End: 07-31-2024 ambulatory EMELINA CARDENAS MD Facility:[facility] Start: 07-31-2024 End: 07-31-2024 Patient encounter procedure EMELINA CARDENAS MD [facility] Start: 07-01-2024 End: 07-05-2024 ambulatory EMELINA CARDENAS MD Facility:[facility] Start: 07-01-2024 End: 07-05-2024 Outreach Lab EMELINA CARDENAS MD [facility] Start: 07-01-2024 End: 07-01-2024 ambulatory EMELINA CARDENAS MD Facility:[facility] Start: 07-01-2024 End: 07-01-2024 Patient encounter procedure EMELINA CARDENAS MD [facility] Start: 05-08-2024 Encounter for genera l adult medical examination without abnormal findings Momo Donahue [facility] Start: 05-08-2024 End: 05-08-2024 ambulatory Momo Donahue NURSE SPECIALIST-C Work Phone: [facility] Work Phone: Start: 05-08-2024 End: 05-08-2024 Patient encounter procedure Momo Donahue NURSE SPECIALIST-C -[facility] Work Phone: Start: 05-08-2024 End: 05-08-2024 ambulatory Momo Donahue Facility:[facility] Start: 05-06-2024 ambulatory Momo Donahue Facility:[facility] Start: 05-04-2024 Encounter for genera l adult medical examination without abnormal findings Momo Szymanskipkins [facility] Start: 05-04-2024 ambulatory Momo Donahue Facility:[facility] Start: 05-01-2024 End: 05-01-2024 ambulatory Momo Donahue NURSE SPECIALIST-C Work Phone: [facility] Work Phone: Start: 05-01-2024 End: 05-01-2024 Patient encounter procedure Momo Donahue NURSE SPECIALIST-C -Laboratory Work Phone: Start: 05-01-2024 End: 05-01-2024 ambulatory Momo Donahue Facility:[facility] Start: 08-30-2021 ambulatory [facility] Start: 01-28-2017 End: 01-28-2017 Ambulatory [facility] Procedures Date Procedure Procedure Detail Performing Clinician Start: 11-05-2024 Urine culture Momo carrillo NURSE SPECIALIST-C Work Phone: Start: 05-08-2024 Bilateral mammography R rachel Szymanskipkins NURSE SPECIALIST-C Work Phone: Start: 05-08-2024 Ultrasonography of breast Momo Donahue NURSE SPECIALIST-C Work Phone: Start: 02-12-1992 Surgical procedure AMEL GEE CARDENAS MD Comment on above: Heart surgery 3 holes filled in Plan of Treatment Date Care Activity Detail Author Start: 10-30-2024 Hepatitis C antibody measurement [facility] Start: 10-30-2024 Rubella IgG measurement [facility] Start: 10-30-2024 Serologic test for syphilis [facility] Start: 10-30-2024 [facility] CBC W Auto Different ial panel - Blood [facility] Payers Date Payer Category Payer Unknown [id number] 2024 Unknown [id number] 2024 Self-pay [id number] 2024 Unknown 0 [id number] 1990 Unknown [id number] 2.16. [id number] 1989 Unknown [id number] 2.16. [id number] 1989 Unknown [id number] 2.16. [id number] 1989 Unknown [id number] 2.16.8 [id number] 1989 Unknown [id number] 2.16.8 [id number] Unknown [id number] 2.16.8 [id number] Unknown [id number] 2.16.8 40.1.114759.3.579.2.462 Unknown [id number] 2.16.8 40.1.346291.3.579.2.462 Unknown [id number] 2.16.8 40.1.923032.3.579.2.462 Unknown [id number] 2.16.8 40.1.592606.3.579.2.462 Unknown [id number] 2.16.8 40.1.423846.3.579.2.462 Unknown [id number] 2.16.8 40.1.258963.3.579.2.462 Unknown [id number] 2.16.8 [id number] Unknown [id number] 2.16.8 40.1.238151.3.579.2.462 Unknown [id number] 2.16.8 [id number] Unknown [id number] 2.16.8 [id number] Social History Date Type Detail Facility Start: 11-08-2015 End: 10-30-2024 Tobacco smoking status NHIS Never smoked tobacco (finding) [facility] Start: 05-08-2024 End: 05-12-2024 Sex Female (finding) [facility] Start: 1990 Sex Assigned At Female [facility] Sexual Orientation Erika Calderónltheriberto Troncoso Sex Female [facility] Clinical Notes 10-21-2023 to 11-05-2024 Note Date & Type Note Facility 11-05-2024 Evaluation note Diagnosis Onset Date Resolution AMA (advanced maternal age) primigravida 35+ acute November 05, 2024 11:39am AVM (arteriovenous malformation) brain acute November 052024 11:39am acute October 11:39am Supervision of high-risk acute November 052024 11:39am [facility] Work Phone: 1(887) 276-755409-25-2025 [facility] [address] [place] [address], [address] [place] [address] OFFICE VISIT Date of Service: 11/05/24 MR#: [id number] Acct: [id number] Name: ASAEL LEÓN Rep #: [id number] : 1990 Provider: DARIUS Ramirez Age/Sex: 34/F Location: [facility] Status: Signed Intake Vital Signs 11/08/15 19:37 11/05/24 11:44 11/05/24 11:47 Height 5 ft 1 in 5 ft 1 in 5 ft 1 in Weight: 143 lb BMI 27.0 BP 117/65 Intake Visit Reasons: *NEW* NOB CHI 12w5d, LLUVIA 4/4 Service Clerk Required: No Is patient in pain?: No [...] History (Updated 11/05/24 @ 11:45 by Aylin oRjo, RN) Seasonal allergies Surgical History Status post cardiac surgery Family History Aunt Cancer Grandfather Myocardial infarction Heart disease Grandfather Heart disease Brain aneurysm Social History (Updated 10/30/24 @ 08:23 by Eliana Mckeon RN) adopted: No household members: spouse service: No current occupational status: unemployed current occupation: [employer] current occupational exposures/hazards: No pets and animals: [...] physical activity do you participate in: none brennen/congregation: Jewish seatbelt use: always do you feel safe at home: Yes additional social history: : [email or web address] -> changing to [employer] working History 1 [...] (Rh) Sensitized, Pulmonary (e.g.,TB,Asthma), Drug/latex allergies/reactions, Breast, Director [employer]ed [employer] surgery, Anesthetic complications, History of abnormal pap, [...] and Symptoms of Preeclampsia, Feeding Yes , [employer] Education and Family Medical Leave or Disability [...] Cosigner Signature: Date (if applicable) CC: ~ [facility]07-03-2025 Note* Exam Date Time Procedure Performing Provider Status 08/13/24 12:14 PM XR Hysterosalpingography LAKSHMI FORTE DO; Auth (Verified) [id number] ORIGINAL EXAMINATION: HYSTEROSALPINGOGRAM08/13/2024 12:15 pm COMPARISON: None available HISTORY: ORDERING SYSTEM PROVIDED HISTORY: Reason for Exam: INFERTILITY FINDINGS: A catheter was placed through the cervical os and contrast material was instilled into the uterus by the anchorman. Spot films were obtained by the radiologist. [...] 08/13/2024 1:12:18 PM Ordering Provider: EMELINA CARDENAS [facility]03-28-2025 Radiology Diagnostic study note [facility] Imaging Services [address] [place], [place] [id number] Breast Limited Unilateral MR#: [id number] Acct: [id number] Name: ASAEL LEÓN Rep #: [id number] : 1990 F 33 From: Gilma Vázquez MD PCP: CHICA Linn Status: [facility] CLI Study:Breast Limited Unilateral Date of Exam: 05/08/24 Exam# [id number] Ordering Dr: Momo Donahue NP NURSE SPECIALIST-C EXAM: DIAG MAMM W/CAD, BILAT; BILAT BRST [...] be mailed to the patient. Reading Location: [id number] CC: NURSE SPECIALIST-C Momo Donahue ~ Shell Fisherman: Signed [facility]09-09-2024 Evaluation + Plan note Future Scheduled Tests Laboratory* Complete Blood Count 10/21/23 * Lipid Profile 10/21/23 * Complete Metabolic Panel 10/21/23 [facility] Evaluation + Plan note Future Appointments Appointment Date:07/29/2024 10:45:00 AM Scheduled Provider:EMELINA CARDENAS MD Location:[facility] Appointment Type:[facility] Diagnostic Tests Pending * Rapid Plasma Reagin Test 07/01/24 * Rubella Antibody 07/01/24 Future Scheduled Tests Laboratory* Complete Blood Count 10/21/23 * Lipid Profile 10/21/23 * Complete Metabolic Panel 10/21/23 [facility] Evaluation + Plan note Future Appointments Appointment Date:07/29/2024 10:45:00 AM Scheduled Provider:EMELINA CARDENAS MD Location:[facility] Appointment Type:[facility] Diagnostic Tests Pending * HPV Screen, DNA Probe 07/01/24 Future Scheduled Tests Laboratory* Complete Blood Count 10/21/23 * Lipid Profile 10/21/23 * Complete Metabolic Panel 10/21/23 [facility] Evaluation noteNo assessment information available [facility] Work Phone: Evaluudcjq note* Diagnosis Onset Date Resolution Status Admit Date AMA (advanced maternal age) primigravida 35+ acute November 05, 2024 11:39am AVM (arteriovenous malformation) brain acute November 052024 11:39am acute October 11:39am Supervision of high-risk acute November 05, 2024 11:39am [facility] Work Phone: Hospital course Narrative No data available for this section [facility] Hospital Discharge instructions No data available for this section [facility] Progress note No data available for this section [facility] Progress note Author Jennifer Ramirez [facility] Note Date/Time November 05, 2024 12:18pm [facility] [address], [address] [place] [address] OFFICE VISIT Date of Service: 11/05/24 MR#: [id number] Acct: [id number] Name: ASAEL LEÓN Rep #: [id number] : 1990 Provider: DARIUS Ramirez Age/Sex: 34/F Location: [facility] Status: Signed Intake Vital Signs 11/08/15 19:37 11/05/24 11:44 11/05/24 11:47 Height 5 ft 1 in 5 ft 1 in 5 ft 1 in Weight: 143 lb BMI 27.0 BP 117/65 Intake Visit Reasons: *NEW* NOB CHI 12w5d, LLUVIA 4/4 Service Clerk Required: No Is patient in pain?: No [...] No current occupational status: unemployed current occupation: [employer] current occupational exposures/hazards: No pets and animals: [...] physical activity do you participate in: none brennen/congregation: Jewish seatbelt use: always do you feel safe at home: Yes additional social history: : Boy Dos [employer] -> changing to [employer] working History 1 Elective abortions 0 Hx [...] (Rh) Sensitized, Pulmonary (e.g.,TB,Asthma), Drug/latex allergies/reactions, Breast, Director [employer] surgery, Anesthetic complications, History of abnormal pap, [...] and Symptoms of Preeclampsia, Feeding Yes , [employer] Education and Family Medical Leave or Disability [...] Cosigner Signature: Date (if applicable) CC: ~ [facility] Work Phone: Reason for referral (narrative)No reason for referral information availableWPro[facility] Work Phone: Summary Purpose Family History No [...] Documentation October 30, 2024 8:13am *NEW* NOB CHI 12w5d, LLUVIA 05/15October 132024 11:39am Reason for Visit Admit Date AMA (advanced maternal age) primigravida 35+ November 05, 2024 11:39am AVM (arteriovenous malformation) brain S eptember 2024 11:39am November 05, 2024 11:39am Supervision of high-risk [place] daveyasya 2024 11:39am Additional Source Comments INFORMATION SOURCE (unrecogn ized section and content) DATE CREATED AUTHOR 08/06/2017 [facility] DATE CREATED AUTHOR AUTHOR'S ORGANIZ ATION 09/02/2021 [facility] DATE CREATED AUTHOR AUTHOR'S ORGANIZ ATION 08/16/2024 [facility] DATE CREATED AUTHOR AUTHOR'S ORGANIZ ATION 12/20/2024 [facility] Care Teams (unrecognized sec tion and content) Team Status: Active Member Role Status Dates Momo Donahue NP, NURSE SPECIALIST-C Primary Care Provider Active Team Status: Inactive Member Role Status Dates Momo Donahue NP, NURSE SPECIALIST-C Primary Care Provider Active Start: May 01, 2024 End: May 01, 2024 Momo Donahue NP, NURSE SPECIALIST-C Attending Provider Ac tive Start: May 01, 2024 End: May 01, 2024 Momo Donahue NP, NURSE SPECIALIST-C Referring Provider Ac tive Start: May 01, 2024 End: May 01, 2024 Team Status: Active Member Role Status Dates Momo Donahue NP, NURSE SPECIALIST-C Primary Care Provider Active Start: May 08, 2024 Momo Donahue NP, NURSE SPECIALIST-C Attending Provider Ac tive Start: May 08, 2024 Momo Donahue NP, NURSE SPECIALIST-C Referring Provider Ac tive Start: May 08, 2024 Team Status: Inactive Member Role Status Dates Momo Donahue NP, NURSE SPECIALIST-C Primary Care Provider Active Start: May 08, 2024 End: May 08, 2024 Momo Donahue NP, NURSE SPECIALIST-C Attending Provider Ac tive Start: May 08, 2024 End: May 08, 2024 Momo Donahue NP, NURSE SPECIALIST-C Referring Provider Ac tive Start: May 08, 2024 End: May 08, 2024 Team Status: Active Member Role/Relationship Status Dates Momo Donahue NP, NURSE SPECIALIST-C Primary Care Provider Active Team Status: Inactive Member Role/Relationship Status Dates Momo Donahue NURSE SPECIALIST, NURSE SPECIALIST-C Primary Care Provider Active Start: September End: September 21, 2024 Dr. Emelina Cardenas MD Attending Provider Active Start: September 21, 2024 End: September 21, 2024 Dr. Emelina Cardenas MD Referring Provider Active Start: September 21, 2024 End: September 21, 2024 Team Status: Active Member Role/Relationship Status Dates Momo Donahue NURSE SPECIALIST, NURSE SPECIALIST-C Primary Care Provider Active Start: September Dr. Igor Haines MD Attending Provider Active S tart: September 21, 2024 Team Status: Active Member Role/Relationship Status Dates Momo Donahue NURSE SPECIALIST, NURSE SPECIALIST-C Primary care physicia n Active Team Status: Inactive Member Role/Relationship Status Dates Momo Donahue NURSE SPECIALIST, NURSE SPECIALIST-C Primary care physician Active Start: September End: September 21, 2024 Dr. Emelina Cardenas MD Attending physician Active Start: September 21, 2024 End: September 21, 2024 Dr. Emelina Cardenas MD Referring Provider Active Start: September 21, 2024 End: September 21, 2024 Team Status: Active Member Role/Relationship Status Dates Momo Donahue NURSE SPECIALIST, NURSE SPECIALIST-C Primary care physician Active Start: September Dr. Igor Haines MD Attending physician Active Start: September 21, 2024 Team Status: Active Member Role/Relationship Status Dates Momo Donahue NURSE SPECIALIST, NURSE SPECIALIST-C Primary care physician Active Start: October 30, 2024 Eliana Mckeon RN Attending physician Active S tart: October 30, 2024 Team Status: Inactive Member Role/Relationship Status Dates Momo Donahue NURSE SPECIALIST, NURSE SPECIALIST-C Primary care physician Active Start: November 05, 2024 End: November 05, 2024 Momo Donahue NURSE SPECIALIST, NURSE SPECIALIST-C Referring Provider Active Start: October End: November 05, 2024 Jennifer Ramirez CNM Attending physician Active Start: November 05, 2024 End: November 05, 2024 Team Status: Inactive Member Role/Relationship Status Dates Momo Donahue NURSE SPECIALIST, NURSE SPECIALIST-C Primary care physician Active Start: November 05, [...] BE BASED ON THE PRIMARY CLINICAL RECORDS. [employer] provides no warranty or guarantee of the accuracy or completeness of information in this document.
== END | disposition home or self-care (01) ==
PROVIDERS: PCP Nurse Practitioner Family; Referring Provider Obstetrics & Gynecology; Visit Provider Obstetrics & Gynecology
DX: O09.92 Supervision of high risk pregnancy, unspecified, second trimester (principal); Z3A.00 Weeks of gestation of pregnancy not specified
CPT/HCPCS: 76815